=== PATIENT | male | born 1995 | race Caucasian/White ===

== ENCOUNTER 2017-01-20 11:02 | Observation (INO) | payer BC ==
[2017-01-20 11:41] LABS: #Basophils 0.1 thou/uL (0.0-0.2); #Monocytes 1.1 thou/uL (0.11-0.59); %Basophils 0.5 % (0.0-1.0); %Eosinophils 0.1 % (0.0-10.0); %Lymphocytes 15.1 % (21.0-51.0); %Monocytes 8.2 % (0.0-10.0); Hematocrit 49.5 % (42.0-52.0); Mean Platelet Volume 7.3 fL (7.4-10.4); Red Blood Cell (RBC) Count 5.53 mill/uL (4.70-6.10); White Blood Cell (WBC) Count 13.1 thou/uL (4.8-10.8)
[2017-01-20 12:14] LABS: ALT (SGPT) 12 U/L (8-55); AST (SGOT) 10 U/L (5-34); Alkaline Phosphatase 70 U/L (40-150); Anion Gap 19 mmol/L (10-20); BUN (Urea Nitrogen) 7 mg/dL (8.9-20.6); Bilirubin, Total 0.3 mg/dL (0.2-1.2); Calc. Creatinine Clearance 0 mL/min (70-130); Calcium 10.4 mg/dL (7.8-10.44); Carbon Dioxide 22 mmol/L (22-29); Chloride 103 mmol/L (98-107); Estimated GFR-MDRD 85; Globulin 3.3 g/dL (2.4-3.5); Protein, Total 7.9 g/dL (6.0-8.3)
[2017-01-20] MEDS ORDERED: Potassium Chloride 20 MEQ TAB ONE (12:33)
[2017-01-20] MEDS ORDERED: diphenhydrAMINE 50 MG/ML VIAL ONE ×2 (13:20→15:35)
[2017-01-20] MEDS ORDERED: NS 0.9% w/ 20 MEQ KCL 1,000 ML IV SCH (13:30)
[2017-01-20] MEDS ORDERED: Benztropine Mesylate 2 MG/2 ML VIAL IVP SCH ×2 (13:30→22:00)
[2017-01-20] MEDS ORDERED: Potassium Chloride 20 MEQ in Premix Bag 1 BAG IVPB SCH (13:45)
[2017-01-20 13:49] LABS: Magnesium 2.1 mg/dL (1.6-2.6)
[2017-01-20 13:58] LABS: Troponin I Less than 0.010 ng/mL (< 0.028)
[2017-01-20 14:01] LABS: Acetaminophen Less than 6.0 mcg/mL (10.0-30.0); Salicylate Less than 8.0 mg/dL (15.0-30.0)
[2017-01-20 14:32] LABS: Bilirubin Negative (Negative); Blood, Urine Negative (Negative); Glucose, Urine (Dipstick) >=1000 mg/dL (Negative); Ketone, Urine Trace mg/dL (Negative); Nitrite Negative (Negative); Protein, Urine (Dipstick) Negative (Neg-Trace); Urobilinogen 0.2 mg/dL (0.2-1.0)
[2017-01-20 14:46] LABS: Amphetamine Not Detected (NotDetected); Methadone Not Detected (NotDetected); Methamphetamine Not Detected (NotDetected)
--- NOTE | 2017-01-20 15:09 | CT ---
NONCONTRAST HEAD CT: Date: 01/20/17 HISTORY: Altered mental status. Patient has a history of drug abuse. COMPARISON: None. TECHNIQUE: Noncontrast head CT is performed from skull base to skull vertex. FINDINGS: No parenchymal hemorrhage or extra-axial hematoma. No midline shift. Basilar cisterns are patent. Br ain volume is age-appropriate. Cortical hancock-white matter differentiation is preserved. Ventricles a nd sulci are patent and symmetric. Calvarium is intact. Adequate aeration of the sinuses and mastoid air cells. IMPRESSION: No acute intracranial process. POS: [facility]
[2017-01-20] MEDS ORDERED: diphenhydrAMINE 25 MG CAP PO PRN ×2 (19:23→19:29)
[2017-01-20] MEDS ORDERED: Dextrose 50% Abboject 50 ML SYRINGE IVP PRN (19:28)
[2017-01-20] MEDS ORDERED: Dextrose 5% in Water 1,000 ML IV PRN (19:28)
[2017-01-20] MEDS ORDERED: Insulin Regular 300 UNITS/3 ML VIAL SC PRN (19:28)
[2017-01-20] MEDS ORDERED: Ondansetron HCl/PF 4 MG/2 ML Vial IVP PRN (19:30)
[2017-01-20] MEDS ORDERED: Lorazepam 2 MG/ML VIAL SLOW IVP PRN (19:30)
[2017-01-20] MEDS ORDERED: Acetaminophen 325 MG TAB PO PRN (19:31)
[2017-01-20 20:49] VITALS: BMI 22.0
[2017-01-20] MEDS: NS 0.9% w/ 20 MEQ KCL 1,000 ML IV SCH (20:58)
[2017-01-20] MEDS: Benztropine 1 MG TAB PO SCH (21:03)
[2017-01-21] MEDS: NS 0.9% w/ 20 MEQ KCL 1,000 ML IV SCH ×4 (04:25→20:40)
[2017-01-21] MEDS: Benztropine 1 MG TAB PO SCH ×3 (04:32→22:29)
--- NOTE | 2017-01-21 05:15 | HP ---
DATE OF OBSERVATION BEGINNIN01/20/2017 CHIEF COMPLAINT: Altered mental status. HISTORY OF PRESENT ILLNESS: Patient is a 21-year-old male, who recently left home and live on his o wn with some roommates were involved with polysubstance abuse. The patient had been verbalizing the desire to and because he is a type 1 diabetic thought he could do this successfully by does dri nking way too much soda water and driving his sugar up the point of . He began this process e night prior to admission, letting his mother know that this was his intention, but she did not see k help for him at that time. He later that evening when out with his roommates and apparently took some wax concentrated form of THC along with some cocaine mixed with some other drugs. He is not bedoya re and has no memory of what other substance he abused at that time. However, on the day of admissi on when it was a time to go to his job, he asked his mom to help drive him because he was unable to focus and take himself to work, she noticed his altered mental status at that time, but went ahead a nd dropped him off to work, later then called about 1-2 hours later saying that he was not able focu s and obviously mentally altered at which time she picked him up, saw his confusion, also saw him nash ving several jerking motions that he could not control. She brought him to the emergency room for f urther evaluation. In the ER, he was noted to have a positive urinary drug screen for cocaine as we ll as THC. His motions; however, are not seizure activity and is felt to be dystonic reactions prob ably from an adulterant medication to the cocaine and/or wax. The patient was watched for many hour s in the emergency room with the ER physician, thinking that this would resolve, however, after prol onged period of time and continued dystonic jerking as well as obvious hallucinations it is clear, h fredrick needs further medical observation. PAST MEDICAL HISTORY: As mentioned above is type 1 diabetic. He has an insulin pump. PAST SURGICAL HISTORY: There is no previous surgical history. PSYCHIATRIC HISTORY: Significant for depression, but never to the point of suicidal ideation. SOCIAL HISTORY: Drinks socially. Obviously abuses medication including marijuana and cocaine. Has recently quit smoking, also he is single. ALLERGIES: He has no known drug allergies. MEDICATIONS: His only prescribed medicine is insulin in his insulin pump. REVIEW OF SYSTEMS: Unobtainable due to altered mental status at this time. PHYSICAL EXAMINATION: VITAL SIGNS: On admission, blood pressure 165/100, pulse 95, respirations 14, O2 sat 98% on room ai r. GENERAL: This is a well-nourished, well-developed male, alert and confused with dystonic jerking intermittently. HEENT: Normocephalic and atraumatic. Pupils equal, round, and reactive to light. Extraocular musc les are intact. TMs, nares, pharynx are clear. NECK: Supple. Trachea midline. No mass. CHEST: Clear to auscultation. HEART: Regular rate and rhythm. ABDOMEN: Soft, nontender without organomegaly. GENITOURINARY: Deferred. EXTREMITIES: Without clubbing, cyanosis, or edema. Normal range of motion present in all extremiti es. Symmetrical muscular tone development noted in all extremities. Peripheral pulsations 2+ in al l extremities. SKIN: Without acute rashes or lesions. NEUROLOGIC: Cranial nerves are intact. Unable to test gait and cerebellar function at this time. Deep tendon reflexes 2+ bilaterally. Sensory exam was grossly intact. Mental status with audible and visual hallucinations evidenced by activity and sensory response and misrepresentation of his pe rception of reality. He is emotionally labile as well, going from inquisitive to dysphoria and tear fulness and back to euphoria. LABORATORY AND IMAGING DATA: CT scan of the brain fails to show any acute abnormalities at this pollo e. WBCs 13.1, hemoglobin 16.7, hematocrit 49.5 with platelets of 429. Sodium 141, potassium 2.8, c hloride 103, CO2 of 22, BUN 7, creatinine 1.01 with a GFR of 85. His latest glucose is at 240, calc ium 10.4, magnesium 2.1. Liver functions unremarkable. CK-MB and cardiac enzymes are negative. TS H 1.9. Urinalysis shows glucose greater than 1000 with trace ketones. Toxicology positive for coca ine and cannabis and alcohol 0. ASSESSMENT: 1. Altered mental status due to polysubstance abuse. 2. Dystonic reaction, atypical for current drug screen, probably contaminant. 3. Type 1 diabetic. 4. Hyperkalemia. 5. Major depression/possible bipolar with depression features - suicidal attempt intent prior to ge tting high. PLAN: Plan will be IV hydration treatment for the dystonic reaction, serial reevaluation, and proba ble transfer to [facility] once he is stabilized and come down from his drug-induced confusion. We will put him on telemetry and will closely reevaluate him. We will hold off on an a ntidepressants at this time, pending further psychiatric evaluation.
[2017-01-21 05:30] LABS: Hemoglobin A1c 11.7 % (4.0-6.0)
[2017-01-21 05:50] LABS: Anion Gap 11 mmol/L (10-20); BUN (Urea Nitrogen) 7 mg/dL (8.9-20.6); Calc. Creatinine Clearance 149 mL/min (70-130); Calcium 8.4 mg/dL (7.8-10.44); Carbon Dioxide 26 mmol/L (22-29); Chloride 109 mmol/L (98-107); Estimated GFR-MDRD Greater than 90
[2017-01-21 05:58] LABS: Band 1 % (5-11); Hematocrit 39.3 % (42.0-52.0); Neutrophil 33 % (42-75); Reactive Lymphocytes 16 % (0-10); Red Blood Cell (RBC) Count 4.29 mill/uL (4.70-6.10)
[2017-01-21] MEDS: Folic Acid 1 MG TAB PO SCH (08:37)
[2017-01-21] MEDS: Multivit, Therapeutic 1 TAB PO SCH (08:37)
[2017-01-21] MEDS: Thiamine HCl 200 MG/2 ML VIAL IM SCH (08:38)
--- NOTE | 2017-01-21 08:42 | PRG ---
DATE OF SERVICE: 01/21/2017 SUBJECTIVE: The patient slept most of the night, the mom is not happy secondary to she thinks his b lood sugar checks need to be more often. Also, she is upset about him not eating. She has numerous concerns today. PHYSICAL EXAMINATION: GENERAL: Upon evaluation, the patient is awake, he is alert. VITAL SIGNS: Blood pressure is 97/55, pulse 60, respiration rate 18. He is afebrile. NECK: Supple with no increased JVP or carotid bruit. Carotid had good upstroke with no thyromegaly . COR: Regular rate and rhythm. CHEST: Symmetrical. Clear to auscultation and percussion. ABDOMEN: Soft, nontender with normoactive bowel sounds. There is no bruit or organomegaly. EXTREMITIES: No edema or cyanosis. He had palpable pedal pulses. SKIN: There is no evidence of ulcers lesion, or rash. NEUROLOGIC: He is awake and alert. LABORATORY DATA: Showed a normal CBC, his blood sugar apparently was 600 according to the mother, nabeel esqueda, I do not have a 600 documented in his notes, he has been running from 138-75. His hemoglobi n A1c is 11.7. ASSESSMENT: 1. Polysubstance abuse with altered mental status. 2. Bipolar depression. 3. Hypokalemia. 4. Type 1 diabetes. PLAN: 1. I spoke with the patient and mom at length. We will obtain dietary consult. We will place the patient on 1800 calorie ADA diet. 2. We will check blood sugars q.3h. just for the time being. 3. I will give him potassium 20 mEq p.o. now. 4. We will ask hospital social worker to see the patient in consultation for psych unit, but the patient's f amily does not want [facility]. 5. We will follow up with a CMP in the morning. The patient and mom verbalized understanding and all questions answered to their satisfaction.
[2017-01-21] MEDS ORDERED: FLU VACC QS2017-18 36 mo. & older 0.5 ML SYRINGE IM ONE (09:00)
[2017-01-21] MEDS ORDERED: Potassium Chloride 20 MEQ TAB PO SCH (09:15)
[2017-01-22] MEDS: NS 0.9% w/ 20 MEQ KCL 1,000 ML IV SCH ×3 (04:15→20:19)
[2017-01-22 05:44] LABS: ALT (SGPT) 10 U/L (8-55); AST (SGOT) 13 U/L (5-34); Alkaline Phosphatase 46 U/L (40-150); Anion Gap 12 mmol/L (10-20); BUN (Urea Nitrogen) 7 mg/dL (8.9-20.6); Bilirubin, Total 0.6 mg/dL (0.2-1.2); Calc. Creatinine Clearance 160 mL/min (70-130); Calcium 8.7 mg/dL (7.8-10.44); Carbon Dioxide 23 mmol/L (22-29); Chloride 107 mmol/L (98-107); Estimated GFR-MDRD Greater than 90; Globulin 2.4 g/dL (2.4-3.5); Protein, Total 5.7 g/dL (6.0-8.3)
[2017-01-22] MEDS: Benztropine 1 MG TAB PO SCH ×2 (07:54→14:59)
[2017-01-22] MEDS: Folic Acid 1 MG TAB PO SCH (08:41)
[2017-01-22] MEDS: Multivit, Therapeutic 1 TAB PO SCH (08:42)
[2017-01-22] MEDS: Thiamine HCl 200 MG/2 ML VIAL IM SCH (08:42)
[2017-01-23] MEDS: NS 0.9% w/ 20 MEQ KCL 1,000 ML IV SCH (03:40)
[2017-01-23] MEDS: Thiamine HCl 200 MG/2 ML VIAL IM SCH (07:59)
[2017-01-23] MEDS: Folic Acid 1 MG TAB PO SCH (08:00)
[2017-01-23] MEDS: Multivit, Therapeutic 1 TAB PO SCH (08:00)
[2017-01-23 13:06] VITALS: BP 115/68; TEMP 97.2
--- NOTE | 2017-03-12 15:07 | EKG ---
Test Reason : Blood Pressure : / mmHG Vent. Rate : 101 BPM Atrial Rate : 101 BPM P-R Int : 122 ms QRS Dur : 092 ms QT Int : 280 ms P-R-T Axes : 074 031 050 degrees QTc Int : 363 ms Sinus tachycardia Nonspecific T wave abnormality Nonspecific ST abnormality Abnormal ECG Confirmed by LATOYA LANG, ADOLFO Hernandez ([id number]), scientific editor LUCI BOO ([id number] on 03/12/2017 3:07:13 PM Referred By: Confirmed By:ADOLFO KLEIN MD
== END 2017-01-23 14:37 ==
LOC: ERS 11:02 → 2NO 16:39 → SURG A 01-22 17:30
PROVIDERS: ADMIT Specialist; ATTEND Specialist
DX: T50.992A Poisoning by other drugs, medicaments and biological substances, intentional self-harm, initial encounter (principal); F19.10 Other psychoactive substance abuse, uncomplicated; R41.82 Altered mental status, unspecified; F31.9 Bipolar disorder, unspecified; E10.9 Type 1 diabetes mellitus without complications; R25.8 Other abnormal involuntary movements; E87.5 Hyperkalemia; Z79.899 Other long term (current) drug therapy; Z87.891 Personal history of nicotine dependence
CPT/HCPCS: 36415; 36416; 70450; 80048; 80053; 80306; 80307; 81003; 82140; 82553; 83036; 83735; 84443; 84484; 85025; 90471; 90682; 90732; 93005; 96361; 96365; 96366; 96372; 96375; 96376; G0008; G0009; G0378; J0515; J1200; J3411; J3480; J7050; Q2036

== ENCOUNTER 2017-01-30 18:40 | Emergency (ER) | payer BC ==
[2017-01-30 19:21] LABS: #Basophils 0.1 thou/uL (0.0-0.2); #Lymphocytes 1.2 thou/uL (1.20-3.40); #Monocytes 0.6 thou/uL (0.11-0.59); #Neutrophils 6.2 thou/uL (1.40-6.50); %Basophils 0.9 % (0.0-1.0); %Eosinophils 0.2 % (0.0-10.0); %Lymphocytes 15.1 % (21.0-51.0); %Monocytes 7.2 % (0.0-10.0); Hematocrit 46.2 % (42.0-52.0); Red Blood Cell (RBC) Count 5.11 mill/uL (4.70-6.10); White Blood Cell (WBC) Count 8.1 thou/uL (4.8-10.8)
[2017-01-30 19:29] LABS: PTT 25.3 SEC (22.9-36.1); Prothrombin Time 13.7 SEC (12.0-14.7)
[2017-01-30 19:41] LABS: ALT (SGPT) 17 U/L (8-55); AST (SGOT) 15 U/L (5-34); Acetaminophen Less than 6.0 mcg/mL (10.0-30.0); Alkaline Phosphatase 53 U/L (40-150); Anion Gap 16 mmol/L (10-20); BUN (Urea Nitrogen) 9 mg/dL (8.9-20.6); Bilirubin, Total 0.7 mg/dL (0.2-1.2); Calc. Creatinine Clearance 0 mL/min (70-130); Calcium 9.8 mg/dL (7.8-10.44); Carbon Dioxide 22 mmol/L (22-29); Chloride 103 mmol/L (98-107); Estimated GFR-MDRD 85; Globulin 2.9 g/dL (2.4-3.5); Protein, Total 7.3 g/dL (6.0-8.3); Salicylate Less than 8.0 mg/dL (15.0-30.0); Troponin I Less than 0.010 ng/mL (< 0.028)
[2017-01-30 20:42] LABS: Bilirubin Negative (Negative); Blood, Urine Negative (Negative); Glucose, Urine (Dipstick) 500 mg/dL (Negative); Ketone, Urine 15 mg/dL (Negative); Nitrite Negative (Negative); Protein, Urine (Dipstick) Negative (Neg-Trace); Urobilinogen 0.2 mg/dL (0.2-1.0)
[2017-01-30 20:59] LABS: Amphetamine Not Detected (NotDetected); Methadone Not Detected (NotDetected); Methamphetamine Not Detected (NotDetected)
[2017-01-30] MEDS ORDERED: Acetaminophen 650 MG Suppository ONE (21:35)
[2017-01-30] MEDS ORDERED: Acetaminophen 500 MG TAB ONE (21:45)
--- NOTE | 2017-01-30 22:00 | RAD ---
CHEST ONE VIEW 01/30/17 HISTORY: Fever. COMPARISON: None. FINDINGS: Lungs are clear. No pneumothorax or effusion. The cardiac silhouette or effusion. The cardiac silhoue tte and mediastinal contours are normal. 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 IMPRESSION: No acute intrathoracic abnormality. POS: [facility]
== END 2017-01-30 23:52 | disposition home or self-care (01) ==
LOC: ERS 18:40
DX: R41.82 Altered mental status, unspecified (principal); T44.3X5A Adverse effect of other parasympatholytics [anticholinergics and antimuscarinics] and spasmolytics, initial encounter; E10.9 Type 1 diabetes mellitus without complications
CPT/HCPCS: 36416; 71010; 80053; 80306; 80307; 81003; 82553; 84443; 84484; 85025; 85610; 85730; 87081; 87430; 93005; 96360; 96361

== ENCOUNTER 2017-02-03 12:01 | Emergency (ER) | payer BC ==
[2017-02-03] MEDS ORDERED: Lorazepam 2 MG/ML VIAL ONE ×2 (12:12→12:45)
[2017-02-03] MEDS ORDERED: Haloperidol Lactate 5 MG/ML VIAL ONE (12:12)
[2017-02-03 12:49] LABS: #Basophils 0.1 thou/uL (0.0-0.2); #Monocytes 0.4 thou/uL (0.11-0.59); #Neutrophils 3.3 thou/uL (1.40-6.50); %Basophils 1.1 % (0.0-1.0); %Eosinophils 0.6 % (0.0-10.0); %Lymphocytes 33.9 % (21.0-51.0); %Monocytes 7.7 % (0.0-10.0); Hematocrit 46.5 % (42.0-52.0); Mean Platelet Volume 7.1 fL (7.4-10.4); Red Blood Cell (RBC) Count 5.21 mill/uL (4.70-6.10); White Blood Cell (WBC) Count 5.8 thou/uL (4.8-10.8)
[2017-02-03 13:10] LABS: ALT (SGPT) 13 U/L (8-55); AST (SGOT) 10 U/L (5-34); Acetaminophen Less than 6.0 mcg/mL (10.0-30.0); Alkaline Phosphatase 52 U/L (40-150); Anion Gap 20 mmol/L (10-20); BUN (Urea Nitrogen) 10 mg/dL (8.9-20.6); CK (CPK) 69 U/L (30-200); Calc. Creatinine Clearance 0 mL/min (70-130); Calcium 9.7 mg/dL (7.8-10.44); Carbon Dioxide 19 mmol/L (22-29); Chloride 103 mmol/L (98-107); Estimated GFR-MDRD Greater than 90; Globulin 2.7 g/dL (2.4-3.5); Salicylate Less than 8.0 mg/dL (15.0-30.0)
[2017-02-03 13:25] LABS: Amphetamine Not Detected (NotDetected); Methadone Not Detected (NotDetected); Methamphetamine Not Detected (NotDetected)
== END 2017-02-03 20:31 | disposition home or self-care (01) ==
LOC: ERS 12:01
DX: R41.82 Altered mental status, unspecified (principal); E10.9 Type 1 diabetes mellitus without complications
CPT/HCPCS: 36415; 36416; 80053; 80306; 80307; 82550; 84443; 85025; 93005; 96360; 96361; 96372; J1630; J2060

== ENCOUNTER 2017-02-08 17:04 | Emergency (ER) | payer BC ==
[2017-02-08 18:42] LABS: #Basophils 0.1 thou/uL (0.0-0.2); #Eosinphils 0.1 thou/uL (0.0-0.7); #Lymphocytes 1.9 thou/uL (1.20-3.40); #Monocytes 0.9 thou/uL (0.11-0.59); #Neutrophils 4.3 thou/uL (1.40-6.50); %Basophils 0.9 % (0.0-1.0); %Lymphocytes 26.5 % (21.0-51.0); %Monocytes 11.9 % (0.0-10.0); Hematocrit 51.9 % (42.0-52.0); Mean Platelet Volume 6.9 fL (7.4-10.4); Red Blood Cell (RBC) Count 5.74 mill/uL (4.70-6.10); White Blood Cell (WBC) Count 7.2 thou/uL (4.8-10.8)
--- NOTE | 2017-02-08 19:00 | ULT ---
TESTICULAR ULTRASOUND: Date: 02/08/17 HISTORY: Trauma. Pain. COMPARISON: None. FINDINGS: Testicular echotexture and vascularity is normal bilaterally. Right testicle measures 2.7 x 4.3 x 1.8 cm. Left testicle measures 3.2 x 4.5 x 1.8 cm. Both epididymides are normal with a small left epidid ymal cyst. The skin of the scrotum appears to be mildly thickened. IMPRESSION: Mildly thickened scrotal skin. No abnormality of the underlying testicles. POS: [facility]
--- NOTE | 2017-02-08 19:02 | RAD ---
ABDOMEN 2 VIEWS WITH 1 VIEW CHEST: Date: 02/08/17 HISTORY: Intermittent abdominal and chest pain. COMPARISON: Chest 1 view dated 01/30/17. FINDINGS: The lungs are clear. No pneumothorax or effusion. 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 No dilated loops of large or small bowel. On the upright view, there is no free air under the hemidia phragms. IMPRESSION: No acute intrathoracic or intra-abdominal abnormality. POS: [facility]
[2017-02-08 19:03] LABS: Anion Gap 12 mmol/L (10-20); BUN (Urea Nitrogen) 9 mg/dL (8.9-20.6); Calc. Creatinine Clearance 0 mL/min (70-130); Calcium 9.9 mg/dL (7.8-10.44); Carbon Dioxide 27 mmol/L (22-29); Chloride 102 mmol/L (98-107); Estimated GFR-MDRD Greater than 90
[2017-02-08 19:17] LABS: Bilirubin Small (Negative); Blood, Urine Negative (Negative); Glucose, Urine (Dipstick) >=1000 mg/dL (Negative); Ketone, Urine Trace mg/dL (Negative); Nitrite Negative (Negative); Protein, Urine (Dipstick) Trace mg/dL (Neg-Trace)
[2017-02-08 19:27] LABS: Amphetamine Not Detected (NotDetected); Methadone Not Detected (NotDetected); Methamphetamine Not Detected (NotDetected)
== END 2017-02-08 19:53 | disposition home or self-care (01) ==
LOC: ERS 17:04
DX: N50.819 Testicular pain, unspecified (principal)
CPT/HCPCS: 36415; 36416; 74022; 76870; 80048; 80306; 81003; 85025; 93976

== ENCOUNTER 2017-12-08 05:49 | Inpatient (IN) | payer BC ==
[2017-12-08 06:16] LABS: Bicarbonate (HCO3v) 8.9 mmol/L (1.0-85.0); CO2 Tension (PvCO2) 23.3 mmHg (41.0-51.0); Calcium, Ionized 1.16 mmol/L (1.12-1.32); Hemoglobin - Calc 19.7 g/dL (12.0-18.0); O2 Tension (PvO2) 59.1 mmHg (35.0-45.0); Potassium 4.1 mmol/L (3.4-4.7); T. Carbon Dioxide 9.6 mmol/L (1.0-85.0); pH (Venous) 7.188 (7.35-7.45); vO2 Saturation-calc 84.3 % (94-98)
[2017-12-08 06:27] LABS: #Basophils 0.1 thou/uL (0.0-0.2); #Eosinphils 0.1 thou/uL (0.0-0.7); #Lymphocytes 2.8 thou/uL (1.20-3.40); #Monocytes 0.8 thou/uL (0.11-0.59); #Neutrophils 5.3 thou/uL (1.40-6.50); %Basophils 1.1 % (0.0-1.0); %Eosinophils 1.1 % (0.0-10.0); %Lymphocytes 30.7 % (21.0-51.0); %Monocytes 8.7 % (0.0-10.0); %Neutrophils 58.6 % (42.0-75.0); Hemoglobin 17.4 g/dL (14.0-18.0); Mean Corpuscular Hemoglobin 28.5 pg (27.0-31.0); Platelet Count 479 thou/uL (130-400); Red Blood Cell (RBC) Count 6.11 mill/uL (4.70-6.10); White Blood Cell (WBC) Count 9.1 thou/uL (4.8-10.8)
[2017-12-08] MEDS ORDERED: Lorazepam 2 MG/ML VIAL ONE (06:27)
[2017-12-08] MEDS ORDERED: Insulin Regular 300 UNITS/3 ML VIAL ONE (06:33)
[2017-12-08 06:40] LABS: ALT (SGPT) 13 U/L (8-55); AST (SGOT) 11 U/L (5-34); Acetaminophen Less than 6.0 mcg/mL (10.0-30.0); Albumin 5.1 g/dL (3.5-5.0); Alcohol Less than 10 mg/dL (Less than 10); Alkaline Phosphatase 111 U/L (40-150); Anion Gap 29 mmol/L (10-20); BUN (Urea Nitrogen) 19 mg/dL (8.9-20.6); Bilirubin, Total 1.1 mg/dL (0.2-1.2); CK (CPK) 52 U/L (30-200); Calc. Creatinine Clearance 0 mL/min (70-130); Calcium 10.1 mg/dL (7.8-10.44); Chloride 99 mmol/L (98-107); Estimated GFR-MDRD 52; Globulin 3.7 g/dL (2.4-3.5); Glucose 443 mg/dL (70-105); Lipase 14 U/L (8-78); Magnesium 2.3 mg/dL (1.6-2.6); Phosphorus 4.1 mg/dL (2.3-4.7); Potassium 4.2 mmol/L (3.5-5.1); Protein, Total 8.8 g/dL (6.0-8.3); Salicylate Less than 8.0 mg/dL (15.0-30.0); Sodium 132 mmol/L (136-145)
[2017-12-08 06:43] LABS: Carbon Dioxide 8 mmol/L (22-29)
[2017-12-08 06:48] LABS: Troponin I Less than 0.010 ng/mL (< 0.028)
--- NOTE | 2017-12-08 08:01 | RAD ---
SINGLE VIEW CHEST: Date: 12/08/17 COMPARISON: 01/30/17. HISTORY: Altered mental status. FINDINGS: Single view of the chest shows a normal sized cardiomediastinal silhouette. There is no evidence of c onsolidation, mass, or pleural effusion. The bones are unremarkable. IMPRESSION: No evidence of acute cardiopulmonary disease. POS: [facility]
[2017-12-08 08:34] LABS: Bilirubin Negative (Negative); Blood, Urine Negative (Negative); Clarity CLEAR (Clear); Glucose, Urine (Dipstick) >=1000 mg/dL (Negative); Leukocyte Negative (Negative); Nitrite Negative (Negative); Protein, Urine (Dipstick) 30 mg/dL (Neg-Trace); Specific Gravity, Urine 1.035 (1.002-1.036); Urobilinogen 0.2 mg/dL (0.2-1.0); pH, Urine 5.5 (5.0-9.0)
[2017-12-08 08:40] LABS: Bacteria/HPF None Seen HPF (None Seen); Hyaline Casts/LPF 0-3 HYALINE CAST LPF (0-3 Hyaline); Pathc Cast-AUWi Flag 0.14 (0-2.49); RBC/HPF None Seen HPF (0-3); Squamous Epithelial None Seen HPF (0-3); WBC/HPF None Seen HPF (0-3)
[2017-12-08] MEDS ORDERED: D5 1/2 NS w/20 mEq KCL 1,000 ML IV SCH (08:45)
[2017-12-08 08:47] LABS: Amphetamine Not Detected (NotDetected); Barbiturates Screen Not Detected (NotDetected); Benzodiazepine Screen Not Detected (NotDetected); Cocaine Metabolite Screen Not Detected (NotDetected); Medtox Control Line Valid? VALID (VALID); Medtox Reader # READER 1; Methadone Not Detected (NotDetected); Methamphetamine Not Detected (NotDetected); Opiate Screen Not Detected (NotDetected); Oxycodone Screen Not Detected (NotDetected); Phencyclidine (PCP) Not Detected (NotDetected); THC/Cannabinoid Screen Detected (NotDetected); Tricyclic Screen Not Detected (NotDetected)
--- NOTE | 2017-12-08 10:27 | PDOC.PULCN ---
<Jorge Victor - Last Filed: 12/08/17 17:14> Pulmonology Consult: HPI - Date of Consult Date: 12/08/17 Time: 10:25 - Consult Details Reason for Consult: DKA Requesting Physician: Emergency Department - History of Present Illness HPI: ARIN SUAREZ is a 22 year-old Male that presents to the ED for AMS per his family. Patient has a past history of DM type 1 and substance abuse. Patient's father states that he has seen this "train wreck" coming for the last month. The patient hasn't been sticking to his diet. The patient also hasn't been taking his insulin over the last 2-3 days. He states that his diet was strictly water over this time. The patient states that he had some nausea and vomiting this morning prior to arrival to ED. Patient's father states that his mentation has been off and is acting inappropriately. Patient's father states that he has not slept in 3-4 days. Patient's father is concerned over his condition and wants him to take better care of himself. The patient denies chest pain, sob, new rashes, or infection. No other complaints today. Pulmonology Consult: ROS - Review of Systems Constitutional: negative: fever, chills Cardiovascular: negative: chest pain, palpitations Respiratory: negative: no reported symptoms Pulmonology Consult: PMH Past Medical History: PMH: Type 1 DM, Depression, Substance Abuse PSH: None - Family History Family history: reviewed and not pertinent - Social History Smoking Status: Never smoker Alcohol Use: occasional Drug Use History: marijuana Living Situation: with family/parents Pulmonology Consult: Meds - Medications Medications: Current Medications Insulin Human Regular 100 (units/ Sodium Chloride) 101 mls @ 0 mls/hr IVPB INF DEREJE; Protocol Stop: 12/08/17 18:45 Potassium Chloride/Dextrose/Sod Cl (D5 1/2 Ns W/20 Meq Kcl) 1,000 mls @ 250 mls /hr IV .Q4H DEREJE Sodium Chloride (Flush - Normal Saline) 10 ml IVF Q12HR DEREJE Sodium Chloride (Flush - Normal Saline) 10 ml IVF PRN PRN PRN Reason: Saline Flush - Allergies Allergies/Adverse Reactions: Allergies Allergy/AdvReac Type Severity Reaction Status Date / Time No Known Allergies Allergy Unverified 01/20/17 13:22 Pulmonology Consult: PE - Physical Exam Constitutional: NAD Deviation from normal: Dry mucous membranes Neck: no nodes Cardiovascular: RRR, no significant murmur Respiratory: clear to auscultation bilaterally Gastrointestinal: soft, non-tender, no distention, positive bowel sounds Musculoskeletal: no edema, pulses present Neurological: moves all 4 limbs Psychiatric: A&O x 3 Deviation from normal: Denies hallucinations Skin: no rash Pulmonology Consult: Results - Labs Result Diagrams: 12/08/17 06:03 12/08/17 12:46 - ABG Interpretation ABG Results: POC Bicarbonate Calc 8.9 mmol/L (1.0-85.0) 12/08/17 06:11 Pulmonology Consult: A/P - Problem (1) DKA (diabetic ketoacidoses) Current Visit: Yes Code(s): E13.10 - OTH DIABETES MELLITUS WITH KETOACIDOSIS WITHOUT COMA Status: Acute (2) Diabetes mellitus type 1 Current Visit: Yes Status: Chronic (3) Substance abuse Current Visit: Yes Code(s): F19.10 - OTHER PSYCHOACTIVE SUBSTANCE ABUSE, UNCOMPLICATED Status: Chronic - Time Time: 50% of the time was spent in coordination of care (as documented) at patient's floor/unit and/or counseling patient. Time with Patient: greater than 50 minutes - Plan Plan: 1. DKA - Continue with insulin therapy per protocol. Will defer management to primary team. - ED completed VBG, Can consider ABG - Q6H BMP 2. Type 1 DM - Accuchecks - Initiate home regimen when appropriate 3. Substance abuse - Recent psych hospitalization - Currently abuses marijuana - UDS positive for marijuana - Recommend cessation - Monitor for other signs of withdrawal Disposition: Stable, Continue current plan of care and await resolution of DKA. <John Leon M - Last Filed: 12/09/17 13:40> Pulmonology Consult: HPI - History of Present Illness HPI: ARIN SUAREZ is a 22 year-old M Pulmonology Consult: Meds - Medications Medications: Current Medications Acetaminophen (Tylenol) 650 mg PO Q4H PRN PRN Reason: Headache/Fever or Pain Al Hydroxide/Mg Hydroxide (Maalox) 30 ml PO Q6H PRN PRN Reason: Heartburn or Indigestion Calcium Carbonate (Tums) 1,000 mg PO Q4H PRN PRN Reason: Heartburn or Indigestion Dextrose/Water (Dextrose 50%) 25 gm SLOW IVP PRN PRN PRN Reason: Hypoglycemia Enoxaparin Sodium (Lovenox) 40 mg SC 0900 [facility] Last Admin: 12/09/17 08:32 Dose: 40 mg Glucagon (Glucagon) 1 mg IM PRN PRN PRN Reason: Hypoglycemia Guaifenesin (Robitussin Sf) 200 mg PO Q4H PRN PRN Reason: Cough Dextrose/Water (D5w) 1,000 mls @ 0 mls/hr IV .Q0M PRN PRN Reason: Hypoglycemia Magnesium Sulfate 4 gm/ Sodium (Chloride) 258 mls @ 86 mls/hr IVPB NOW [facility] Stop: 12/09/17 16:00 Last Admin: 12/09/17 10:59 Dose: Not Given Potassium Phosphate 30 mmol/ (Sodium Chloride) 510 mls @ 83.3 mls/hr IVPB NOW [facility] Stop: 12/09/17 16:00 Last Admin: 12/09/17 10:59 Dose: Not Given Insulin Glargine 15 units/ (Miscellaneous Medication) 0.15 mls @ 0 mls/hr SC [facility] Insulin Human Lispro (Humalog) 0 units SC .MILD SLIDING SCALE PRN PRN Reason: Mild Correctional Scale Insulin Human Lispro (Humalog) 5 units SC [facility] Last Admin: 12/09/17 12:49 Dose: Not Given Labetalol HCl (Normodyne) 10 mg SLOW IVP Q4H PRN PRN Reason: Systolic BP > 180 Loperamide HCl (Imodium) 2 mg PO PRN PRN PRN Reason: Diarrhea/Loose Stools Loratadine (Claritin) 10 mg PO DAILYPRN PRN PRN Reason: Sinus Symptoms Ccu Electrolyte (Replacement Protocol) 0 each FS PRN PRN PRN Reason: FOR ELECTROLYTE REPLACEMENT Ondansetron HCl (Zofran Odt) 4 mg PO Q6H PRN PRN Reason: Nausea/Vomiting Ondansetron HCl (Zofran) 4 mg IVP Q6H PRN PRN Reason: Nausea/Vomiting Last Admin: 12/08/17 20:52 Dose: 4 mg Phenol (Chloraseptic [place] 180 Ml Bot) 0 ml PO PRN PRN PRN Reason: Sore Throat Quetiapine Fumarate (Seroquel) 25 mg PO BID DEREJE Last Admin: 12/09/17 10:47 Dose: Not Given Senna (Senokot) 2 tab PO HSPRN PRN PRN Reason: Constipation Sodium Chloride ([place] Nasal [place] 0.65%) 0 ml EA NARE QIDPRN PRN PRN Reason: Nasal Congestion Sodium Chloride (Flush - Normal Saline) 10 ml IVF Q12HR DEREJE Last Admin: 12/09/17 08:33 Dose: 10 ml Sodium Chloride (Flush - Normal Saline) 10 ml IVF PRN PRN PRN Reason: Saline Flush Zolpidem Tartrate (Ambien) 5 mg PO HSPRN PRN PRN Reason: Insomnia Last Admin: 12/08/17 20:44 Dose: 5 mg Pulmonology Consult: Results - Labs Result Diagrams: 12/09/17 05:50 12/09/17 05:50 - ABG Interpretation ABG Results: POC Bicarbonate Calc 8.9 mmol/L (1.0-85.0) 12/08/17 06:11 Pulmonology Consult: A/P - Time Time: 50% of the time was spent in coordination of care (as documented) at patient's floor/unit and/or counseling patient. Attending Addendum - Attending Addendum Date/Time: 12/09/17 [id number] I personally evaluated the patient and discussed the management with Dr. Victor. I agree with the History, Examination, Assessment and Plan documented above with any addition or exceptions noted below. 70 minutes have been devoted to this patient in various activities. I personally reviewed all imaging studies and laboratory data noted within this document. For fifty percent of this time, I was interacting with the patient at the bedside or coordinating care with the care team. For the remainder of the time I was immediately available to the patient in the hospital unit.
[2017-12-08 11:33] LABS: Anion Gap 19 mmol/L (10-20); BUN (Urea Nitrogen) 15 mg/dL (8.9-20.6); Calc. Creatinine Clearance 0 mL/min (70-130); Calcium 8.9 mg/dL (7.8-10.44); Carbon Dioxide 12 mmol/L (22-29); Chloride 107 mmol/L (98-107); Estimated GFR-MDRD 85; Glucose 112 mg/dL (70-105); Potassium 4.2 mmol/L (3.5-5.1); Sodium 134 mmol/L (136-145)
--- NOTE | 2017-12-08 11:55 | HP ---
DATE OF ADMISSION: 12/08/2017 PRIMARY CARE PHYSICIAN: Alejandro Guy M.D. REASON FOR ADMISSION: Acute metabolic encephalopathy, diabetic ketoacidosis, intractable nausea and vomiting, dehydration. HISTORY OF PRESENT ILLNESS: A 22-year-old male who has underlying history of diabetes type 1 who presented to emergency room for altered mental status. The patient has a history of diabetes type 1 and he is on insulin. The patient's father is present at bedside who provided most of the history. The patient lives with his father in an apartment. Around 5:00, the patient woke up his father that he vomited in his room. At that time, the patient was talking irrelevantly. The patient's father suspected that he is going to go for DKA and he was pretty much hallucinating and talking off the mind that was not making any sense. He was also having nausea and vomiting and that is why he was brought to emergency room for evaluation. In the emergency room, the patient had a chest x-ray, which was normal. Routine blood tests showed that the patient is having DKA. The patient was given IV fluid and insulin drip was started. After that, his blood sugar significantly improved and after that, dextrose with insulin drip was also initiated. Initially, lactic acid was high and subsequent repeat lactic acid was normal. The patient was tachycardic. He was actively throwing up in the emergency room. Other vitals were stable. With IV fluid hydration, the patient 's condition improving. Initially, he required restraint in the ER, but subsequently he was more coherent. Initially, plan was admitted to CCU, but subsequently upon stabilization, we changed to IMCU admission. I have spoken with the patient's father at bedside and history obtained from the patient. The patient does have cannabis abuse, but he denies any cocaine abuse, which he had before positive in 2017. The patient's father reports that he is pretty much in sound mind whenever he is normal. He is making progress in his job. He is associated customer service related work and he is making progress and he is getting promotion. The patient's father does not believe that he has underlying psychiatric problem. The patient's father reports that whenever he is normal and he is doing very well, he does not have any vomiting, but he reports that his blood sugar relatively remains uncontrolled for almost a month. He denies any early satiety. He does not have any diarrhea, fever, UTI symptoms. The patient saw intermediate school teacher yesterday. At this point, the patient is admitted for DKA management. PAST MEDICAL HISTORY: Diabetes type 1. PAST SURGICAL HISTORY: The patient had a wrist surgery when he had broken bone when he was a child. PAST PSYCHIATRIC HISTORY: As per report, the patient has underlying depression , but family member and the patient denies any previous psychiatric history. SOCIAL HISTORY: The patient does have cannabis abuse periodically. He also had one time positive cocaine in his urine drug screen. He quit smoking. He drinks alcohol occasionally. He lives with his father. FAMILY HISTORY: Sister has type 1 diabetes, mother has type 2 diabetes, father is healthy. ALLERGIES: No known drug allergy. MEDICATIONS: The patient is on insulin pump through the intermediate school teacher. REVIEW OF SYSTEMS: The following complete review of systems was negative, unless otherwise mentioned in the HPI or below: Constitutional: Weight loss or gain, ability to conduct usual activities. Skin: Rash, itching. Eyes: Double vision, pain. ENT/Mouth: Nose bleeding, neck stiffness, pain, tenderness. Cardiovascular: Palpitations, dyspnea on exertion, orthopnea. Respiratory: Shortness of breath, wheezing, cough, hemoptysis, fever or night sweats. Gastrointestinal: Poor appetite, abdominal pain, heartburn, nausea, vomiting, constipation, or diarrhea. Genitourinary: Urgency, frequency, dysuria, nocturia. Musculoskeletal: Pain, swelling. Neurologic/Psychiatric: Anxiety, depression. Allergy/Immunologic: Skin rash, bleeding tendency. Please see my HPI for pertinent positive and negative. All other review of systems reviewed and negative except as mentioned in the HPI. EMERGENCY ROOM COURSE: The patient was given IV fluid with potassium. Subsequently, dextrose with half normal saline was started. Lorazepam 1 mg was given. PHYSICAL EXAMINATION: VITAL SIGNS: On arrival, blood pressure 171/102, pulse 122, respiratory rate 18 , saturation 98% on room air, weight 89.9 kg, temperature 98.1. GENERAL: The patient is currently alert, awake, vomiting, tachycardic, hypertensive. No obvious acute distress. HEAD: Normocephalic, atraumatic. EYES: Pupils round and reactive to light. Extraocular muscle intact. ENT: Oropharynx within normal limits. Dry mucous membrane. No oral lesion, no pharyngeal erythema, no exudate. NECK: Supple. No JVD, no meningeal signs of irritation. LUNGS: Clear to auscultation without any rhonchi or rales. CARDIAC: S1, S2 regular, tachycardia, no murmur, no gallop, no rub. ABDOMEN: Soft, bowel sounds present, nontender, nondistended. No organomegaly , no mass, no suprapubic tenderness. BACK: No CVA tenderness. No point tenderness. EXTREMITIES: Upper extremities, passive movement of all joints are normal. Lower extremities, no edema. Good distal pulsation. SKIN: No skin rash. HEMATOLOGICAL: No lymphadenopathy. PSYCHIATRIC: At this point, flat affect. NEUROLOGIC: The patient is currently alert, awake, still a little bit disoriented, but he answers question. He moves all 4 limbs. His speech is normal. No focal neurological deficit noted. IMAGIN. EKG showing sinus tachycardia. 2. Chest x-ray based on my review, no acute cardiopulmonary process. LABORATORY DATA: CBC, WBC 9.1, hemoglobin 17.4, platelet 479,000. VBG, pH 7.18 , CO2 23.3, O2 59.1, bicarbonate 8.9. BMP, sodium 132, potassium 4.2, chloride 99, carbon dioxide 8, BUN 19, creatinine 1.66, glucose 443, calcium 10.1, lactic acid 4.0, phosphorus 4.1, magnesium 2.3. LFT, AST 11, ALT 13, alkaline phosphatase 111, albumin 5.1, lipase 14. CK 52, CK-MB 1.0. Troponin I less than 0.010. Urinalysis, proteinuria, glucosuria, ketonuria. Urine drug screen positive for cannabinoids. Serum drug screen negative. Serum ketones 8.01. ASSESSMENT: 1. Acute metabolic encephalopathy, likely due to abnormal biochemistry with diabetic ketoacidosis. 2. Diabetic ketoacidosis, type 1. 3. Acute kidney failure due to dehydration. 4. Lactic acidosis due to dehydration. 5. Hyponatremia due to pseudohyponatremia. 6. Cannabis abuse. 7. Glucosuria, proteinuria due to hyperglycemia and ketosis. 8. Severe dehydration due to nausea and vomiting. 9. Intractable nausea and vomiting, likely due to diabetic ketoacidosis. 10. Sinus tachycardia, likely due to dehydration. 11. Hyperglycemia associated with type 1 diabetes. PLAN: Full admission to Intermediate Care Unit. DKA protocol order initiated. Monitor Accu-Chek every hourly and titrate insulin drip. Replace electrolytes as needed. Check hemoglobin A1c and repeat labs including electrolytes tomorrow. Treat underlying insomnia with sedative medication. Counseling provided to avoid cannabis abuse. Deep venous thrombosis prophylaxis with Lovenox 40 mg subcutaneously daily. Gastrointestinal prophylaxis with Pepcid 20 mg IV b.i.d. Code status: The patient is full code. Disposition plan based on clinical course. We are expecting the patient's stay in hospital more than 2 midnights. Plan of care discussed with the patient and his father at bedside. BERNARD
--- NOTE | 2017-12-08 12:33 | HP ---
CHIEF COMPLAINT ON ADMISSION: Diabetic ketoacidosis. HISTORY OF PRESENT ILLNESS: The patient is a 22-year-old male who the father states he has been slowly going into DKA over the past month. He has watched him wax and wane with his blood sug ars, alertness and ability to respond correctly until finally on the day of admission he was complete ly disoriented, confused and while he had not been hallucinating, this was the only unusual part of h is behavior that he did not portray. The dad brought him to the emergency room for reevaluation wher e he had been throwing up consistently and needed fluid rehydration. He denies fever or diarrhea. Calista alcala has done this before. PAST MEDICAL HISTORY: Significant for insulin-dependent diabetes. He has bipolar disorder. He does consume alcohol. PAST SURGICAL HISTORY: He has no surgeries. SOCIAL HISTORY: As mentioned above, he drinks socially. Denies smoking, but uses marijuana regularl y. He is currently living with his family, recently discharged from [facility] for bipolar disorder. ALLERGIES: He has no known drug allergies. MEDICATIONS: He is unable to recall his insulin dose at this time. He is managed by Dr. Tucker. REVIEW OF SYSTEMS: CONSTITUTIONAL: He denies fever and chills, but he has had weakness, nausea, vomiting, and confusion . HEENT: Denies eyes, ears or nose, drainage or sores. CHEST: Denies cough or shortness of breath. CARDIOVASCULAR: Denies palpitations. His heart rate has been elevated at times. ABDOMEN: Nontender. Positive for nausea and vomiting, negative for diarrhea. GENITOURINARY: Denies painful urination. Denies blood in urine or stool. EXTREMITIES: Denies painful range of motion of any of his limbs. SKIN: No new rashes or lesions. NEUROLOGIC: Mental status is significant for confusion. PHYSICAL EXAMINATION: VITAL SIGNS: On admission, blood pressure 171/107, pulse 122, respirations 18, pain scale, unable to determine, O2 sat 98% on room air. GENERAL: This is a well-developed, well-nourished young adult male, alert, responsive, confused. HEENT: Normocephalic and atraumatic. Pupils equal, round, and reactive to light. Extraocular muscl es are intact. TMs, nares are clear. Pharynx is moist. NECK: Supple, trachea midline. CHEST: Clear to auscultation. HEART: Regular rate and rhythm, tachycardic. BACK: No lesions or tenderness. ABDOMEN: Soft, nontender. No hepatosplenomegaly, no hernia. GENITOURINARY: Normal male. RECTAL: Deferred. EXTREMITIES: Without clubbing, cyanosis, or edema. Normal range of motion present. SKIN: With adequate turgor. No rashes or lesions. NEUROLOGIC: Cranial nerves are intact. Sensory exam is grossly normal. Gait and cerebellar functio n untested at this time. Babinskis down. Mental status significant for mild confusion, but he is al ert and responsive. LABORATORY: The lab work thus far shows WBC 9.1, hemoglobin 17.4, hematocrit 54.4 with platelets at 479. This is a venous blood gas; pH is 7.18, pCO2 23, pO2 of 59. Sodium 133, potassium 4.1, chlorid e 107, CO2 12, BUN at 15, creatinine at 0.08 with a GFR of 85. Blood sugars have been at 121, 112, 1 27, lactic acid 1.0. Liver functions unremarkable. Urinalysis shows greater than 1000 glucose with 80 ketones. Toxicology shows highly detected cannabis and beta hydroxybutyrate. ASSESSMENT: 1. Diabetic ketoacidosis. 2. General medical noncompliance. 3. THC abuse. PLAN: The plan will be diabetic ketoacidosis protocol in the ICU, electrolyte replacement protocol, hydration, promethazine for nausea and serial reevaluation. Sound will be covering from noon on.
[2017-12-08] MEDS ORDERED: Chloraseptic Spray 180 ml Bottle PO PRN (12:39)
[2017-12-08] MEDS ORDERED: CCU Electrolyte Replacement 1 EACH IVPB ONE (12:39)
[2017-12-08] MEDS ORDERED: Mag-Al 1200 mg/1200 mg/30 ML UDCUP PO PRN (12:39)
[2017-12-08] MEDS ORDERED: Calcium Carbonate 500 MG ChewTAB PO PRN (12:39)
[2017-12-08] MEDS ORDERED: Labetalol HCl 100 MG/20 ML VIAL SLOW IVP PRN (12:39)
[2017-12-08] MEDS ORDERED: Dextrose 5 %-0.45 % NaCl 1,000 ML IV PRN (12:39)
[2017-12-08] MEDS ORDERED: Eucerin (Mineral Oil/Petrolatum,White) 30 gm Jar TOP PRN (12:39)
[2017-12-08] MEDS ORDERED: Acetaminophen 325 MG TAB PO PRN (12:39)
[2017-12-08] MEDS ORDERED: Senokot 8.6 MG TAB PO PRN (12:39)
[2017-12-08] MEDS ORDERED: Zolpidem Tartrate 5 MG TAB PO PRN (12:39)
[2017-12-08] MEDS ORDERED: Milk Of Magnesia 30 ML UDCUP PO PRN (12:39)
[2017-12-08] MEDS ORDERED: Ondansetron ODT 4 MG TAB PO PRN (12:39)
[2017-12-08] MEDS ORDERED: Artificial Tears 18 DROP/0.9 ML EA EYE PRN (12:39)
[2017-12-08] MEDS ORDERED: Sodium Chloride 0.9% 1,000 ML IV PRN ×4 (12:39)
[2017-12-08] MEDS ORDERED: Diabetic Tussin 200 MG/10 ML UDCUP PO PRN (12:39)
[2017-12-08] MEDS ORDERED: Sodium Chloride 0.65% Nasal 44 ML BOT EA NARE PRN (12:39)
[2017-12-08] MEDS ORDERED: HYDROcodone/Acetaminophen 5/325 mg Tablet PO PRN (12:39)
[2017-12-08] MEDS ORDERED: Ondansetron HCl/PF 4 MG/2 ML Vial IVP PRN (12:39)
[2017-12-08] MEDS ORDERED: Loratadine 10 MG TAB PO PRN (12:39)
[2017-12-08] MEDS ORDERED: NS 0.9% w/ 20 MEQ KCL 1,000 ML IV PRN ×2 (12:39)
[2017-12-08] MEDS ORDERED: Loperamide HCl 2 MG CAP PO PRN (12:39)
[2017-12-08] MEDS ORDERED: Potassium Chloride 20 MEQ TAB PO PRN (12:55)
[2017-12-08] MEDS ORDERED: CCU ELECTROLYTE REPLACEMENT PROTOCOL FS PRN (12:55)
[2017-12-08] MEDS ORDERED: Potassium Phosphate 15 MMOL in Sodium Chloride 0.9% 250 ML 250 ML IV PRN (12:55)
[2017-12-08] MEDS ORDERED: Potassium Chloride 40 MEQ in Sodium Chloride 0.9% 250 ML 250 ML IVPB PRN (12:55)
[2017-12-08] MEDS ORDERED: Potassium Chloride 40 MEQ in Premix Bag 1 BAG IVPB PRN (12:55)
[2017-12-08] MEDS ORDERED: Potassium Phosphate 9 MMOL in Sodium Chloride 0.9% 100 ML IVPB PRN (12:55)
[2017-12-08] MEDS ORDERED: Magnesium Oxide 400 MG TAB PO PRN ×2 (12:55)
[2017-12-08] MEDS ORDERED: Potassium Phosphate 12 MMOL in Sodium Chloride 0.9% 250 ML 250 ML IV PRN (12:55)
[2017-12-08] MEDS ORDERED: Magnesium 2 GM/NS 0.9% 100 ML 2 GM in Premix Bag 1 BAG IVPB PRN (12:55)
[2017-12-08 13:22] LABS: Anion Gap 16 mmol/L (10-20); BUN (Urea Nitrogen) 13 mg/dL (8.9-20.6); Calc. Creatinine Clearance 0 mL/min (70-130); Calcium 8.3 mg/dL (7.8-10.44); Carbon Dioxide 15 mmol/L (22-29); Chloride 106 mmol/L (98-107); Estimated GFR-MDRD 82; Glucose 212 mg/dL (70-105); Potassium 3.9 mmol/L (3.5-5.1); Sodium 133 mmol/L (136-145)
[2017-12-08] MEDS: Famotidine/PF 20 mg/2ml Vial SLOW IVP SCH (20:44)
[2017-12-08 21:04] LABS: Anion Gap 15 mmol/L (10-20); BUN (Urea Nitrogen) 9 mg/dL (8.9-20.6); Calc. Creatinine Clearance 111 mL/min (70-130); Calcium 8.7 mg/dL (7.8-10.44); Carbon Dioxide 17 mmol/L (22-29); Chloride 104 mmol/L (98-107); Estimated GFR-MDRD 85; Glucose 226 mg/dL (70-105); Potassium 3.7 mmol/L (3.5-5.1); Sodium 132 mmol/L (136-145)
[2017-12-08] MEDS: D5 1/2 NS w/20 mEq KCL 1,000 ML IV PRN (22:22)
[2017-12-09] MEDS: D5 1/2 NS w/20 mEq KCL 1,000 ML IV PRN ×2 (02:59→07:19)
[2017-12-09] MEDS ORDERED: Promethazine HCl 12.5 MG in Sodium Chloride 0.9% 50 ML IVPB PRN (05:26)
[2017-12-09 06:10] LABS: Hemoglobin A1c 4.6 % (4.0-6.0)
[2017-12-09 06:44] LABS: ALT (SGPT) 9 U/L (8-55); AST (SGOT) 12 U/L (5-34); Albumin 2.8 g/dL (3.5-5.0); Alkaline Phosphatase 89 U/L (40-150); Anion Gap 8 mmol/L (10-20); BUN (Urea Nitrogen) 7 mg/dL (8.9-20.6); Bilirubin, Total 0.3 mg/dL (0.2-1.2); Calc. Creatinine Clearance 186 mL/min (70-130); Calcium 7.7 mg/dL (7.8-10.44); Carbon Dioxide 23 mmol/L (22-29); Chloride 109 mmol/L (98-107); Estimated GFR-MDRD Greater than 90; Globulin 2.8 g/dL (2.4-3.5); Glucose 111 mg/dL (70-105); Magnesium 1.5 mg/dL (1.6-2.6); Phosphorus 1.7 mg/dL (2.3-4.7); Protein, Total 5.6 g/dL (6.0-8.3); Sodium 137 mmol/L (136-145)
[2017-12-09 06:46] LABS: Hemoglobin 10.2 g/dL (14.0-18.0); Mean Corpuscular HGB CONC 31.5 g/dL (32.0-36.0); Mean Corpuscular Hemoglobin 25.7 pg (27.0-31.0); Mean Corpuscular Volume 81.4 fL (78.0-98.0); Mean Platelet Volume 7.1 fL (7.4-10.4); Platelet Count 202 thou/uL (130-400); RBC Distribution Width 12.4 % (11.5-14.5); Red Blood Cell (RBC) Count 3.97 mill/uL (4.70-6.10); White Blood Cell (WBC) Count 13.8 thou/uL (4.8-10.8)
[2017-12-09 07:51] LABS: Band 38 % (5-11); Lymphocytes 6 % (21-51); MDiff Complete? YES; Monocytes 5 % (0-10); Neutrophil 51 % (42-75); PLT Morphology Comment Appears Adequate; Polychromasia SLIGHT = 2-3 cells (100X) (0-2/hpf)
[2017-12-09] MEDS: Potassium Chloride 20 MEQ in Premix Bag 1 BAG IVPB SCH ×2 (08:22→09:26)
[2017-12-09] MEDS: Enoxaparin Sodium 40 MG/0.4 ML SYRINGE SC SCH (08:32)
[2017-12-09] MEDS: Famotidine/PF 20 mg/2ml Vial SLOW IVP SCH (08:32)
[2017-12-09] MEDS ORDERED: Dextrose 5% in Water 1,000 ML IV PRN (08:37)
[2017-12-09] MEDS ORDERED: Dextrose 50% Abboject 50 ML SYRINGE SLOW IVP PRN (08:37)
[2017-12-09] MEDS ORDERED: HumaLOG 300 UNITS/3 ML VIAL SC PRN (08:57)
[2017-12-09] MEDS ORDERED: Famotidine 20 MG TAB PO SCH (09:00)
--- NOTE | 2017-12-09 09:40 | PRG ---
DATE OF SERVICE: 12/09/2017 SUBJECTIVE: The patient has no specific complaints this morning; however, he did have some incontine nce in his bed this morning. He is challenging to talk to this morning because his thoughts are very scattered. I did have a long conversation with the patient's father. He has seen these type of sym ptoms happen to the patient before. He reports the patient is highly intelligent and functional, but will go through cycles where he does not sleep for a period of time, starts having poor judgment and does not manage his diabetes and ends up with DKA and in the hospital. PHYSICAL EXAMINATION: VITAL SIGNS: T-max 99.3, temperature 99.4, pulse 99, respirations 16, O2 sat 99% on room air, BP is 118/73. GENERAL: Age appropriate male. He is in no distress. He is awake and alert. HEENT: PERRL. No OP lesions. NECK: Supple and symmetric. HEART: Regular rate and rhythm without murmurs. LUNGS: Reveal some right basilar rales, otherwise clear. ABDOMEN: Soft, nontender, nondistended. EXTREMITIES: Warm and dry without edema. NEURO/PSYCH: The patient's thoughts are completely scattered. He has a difficult time following a l ogical train of thought. He has a bit of paranoia. When asked if he was considering hurting himself , he stated it is hard not to feel like hurting himself when you have medical problems and are traine d to inflict pain, indicating acting out as if he was checking his blood sugar and poking his finger. LABORATORY DATA: White count 13.8, hemoglobin 10.2, platelets 202, 38% bands. Sodium 137, potassium 3.0, chloride 109, anion gap is 8, BUN 7, creatinine 0.66, blood sugar 156, calcium 7.7, phosphorus 1.7, magnesium 1.5. Albumin is 2.8, total protein is 5.6. Beta hydroxybutyrate 0.59 down from 8.0 o n presentation. I ordered a repeat chest x-ray this morning which appears to be generally clear. Still waiting for f ormal interpretation. ASSESSMENT AND PLAN: 1. Diabetic ketoacidosis. The patient has apparently some underlying mental health issues, which I think have contributed to his noncompliance and resulted in the diabetic ketoacidosis. Currently, hi s anion gap is completely normal. His blood sugars are fine. I am going to stop the insulin drip, p ut him on a regular diabetic diet and give him some sliding scale insulin and continue to monitor him today. 2. Leukocytosis with a left shift, unclear etiology. He has some right basilar rales, concerning fo r a little bit of pneumonitis. He is not having any shortness of breath, cough. Initial look on the chest x-ray, per my view does not appear to show any significant inflammation. We will need to cont inue to monitor this. 3. Hypokalemia. The patient is a bit paranoid about having another IV. It looks like we will be ab le to stop the insulin drip and likely just give him p.o. supplementation. 4. Hypophosphatemia. 5. Hypomagnesemia. 6. Mild anemia. The patient's hemoglobin and platelets both dropped significantly on follow up labs . Unclear if this is mostly dilutional. 7. Bipolar, jennie. In talking to the patient, he has significant activated symptoms with insomnia a nd scattered thoughts and poor judgment and insight. According to his father this has been somewhat cyclical and following these episodes, he will typically "crash" and sleep for a period of time. I h ad a long discussion with the father. I am not a psychiatrist nor do I have access to one here; haroldo fernandez, we will do our best to try to manage the activated symptoms and will start Seroquel 25 mg p.o. b .i.d. I believe if he could get some good sleep it would be significantly beneficial to him. We jose guadalupe l also see if we can help him arrange some sort of follow up from here as soon as we can make that nash ppen at the time of discharge.
--- NOTE | 2017-12-09 09:51 | RAD ---
PORTABLE CHEST 1 VIEW: DATE: 12/09/17. TIME: 8:47 a.m. HISTORY: Elevated WBCs. FINDINGS: The heart size is normal. The lungs are expanded without focal areas of consolidation, pneumothorace s, or ejection fractions. IMPRESSION: No radiographic evidence of acute cardiopulmonary process. POS: [facility]
[2017-12-09] MEDS ORDERED: Insulin Glargine 20 UNITS in Pre-Filled Syringe 1 EACH SC SCH (10:15)
[2017-12-09] MEDS ORDERED: Magnesium Sulfate 4 GM in Sodium Chloride 0.9% 250 ML 250 ML IVPB SCH (10:15)
[2017-12-09] MEDS ORDERED: Potassium Phosphate 30 MMOL in Sodium Chloride 0.9% 500 ML IVPB SCH (10:15)
[2017-12-09] MEDS ORDERED: Potassium Chloride 20 MEQ TAB PO SCH (10:15)
--- NOTE | 2017-12-09 10:21 | PRG ---
DATE OF SERVICE: 12/09/2017 SERVICE: Pulmonary Medicine. INTERVAL HISTORY: The patient is doing fine from a metabolic standpoint. He remains a little bit co nfused. Otherwise, his dad says he is back to baseline. He denies any fevers or chills. He is apurva thing comfortably. His appetite has picked back up and is hungry. Otherwise, there has been no inte rval change to his condition. PHYSICAL EXAMINATION: VITAL SIGNS: Afebrile, pulse 99, blood pressure 118/73, respirations 16, saturation 99% on room air. GENERAL: The patient is awake and alert, in no apparent distress. LUNGS: Excellent air entry. There is no prolonged expiratory phase. Dependent crackles are present . HEART: Normal rate, regular. ABDOMEN: Soft, nontender, nondistended. Bowel sounds are positive. MUSCULOSKELETAL: No cyanosis or clubbing. There is no pitting in the bilateral lower extremities. NEUROLOGIC: Grossly nonfocal. LABORATORY DATA: WBC 13.8, hemoglobin 10.2, platelets 202,000. Potassium 3.0, bicarbonate 23, anion gap 8. Phosphorus and magnesium are low. Liver function studies are otherwise unremarkable. Beta hydroxybutyric acid is unremarkable. IMAGING: Chest x-ray demonstrates no acute cardiopulmonary abnormality. ASSESSMENT: 1. Diabetic ketoacidosis. 2. Type 1 diabetes mellitus. 3. Medical noncompliance. DISCUSSION AND PLAN: The patient's appetite has improved and his gap is closed. Over resuscitation is likely what is causing his elevated white blood cell count, but we will continue to monitor for in creasing signs of sepsis. The chest x-ray was reassuring. At this point, he is stable for transitio n to the medical unit once we convert him over to subcutaneous insulin. He will have no further requ irements for Pulmonary or Critical Care opinion once he arrives on the floor and I will sign off at t hat time. Please call with additional questions or concerns.
[2017-12-09] MEDS: HumaLOG 300 UNITS/3 ML VIAL SC SCH ×2 (12:49→16:56)
[2017-12-09 13:34] VITALS: BMI 23.6
[2017-12-10] MEDS ORDERED: Lorazepam 2 MG/ML VIAL SLOW IVP SCH (01:30)
[2017-12-10] MEDS ORDERED: Sterile Water 10 ML VIAL FS SCH (02:00)
[2017-12-10] MEDS ORDERED: Ziprasidone 20 MG VIAL IM SCH (02:00)
[2017-12-10 05:02] LABS: #Basophils 0.1 thou/uL (0.0-0.2); #Eosinphils 0.1 thou/uL (0.0-0.7); #Monocytes 0.5 thou/uL (0.11-0.59); #Neutrophils 2.8 thou/uL (1.40-6.50); %Eosinophils 1.2 % (0.0-10.0); %Lymphocytes 46.6 % (21.0-51.0); %Monocytes 7.9 % (0.0-10.0); %Neutrophils 43.3 % (42.0-75.0); Hemoglobin 15.5 g/dL (14.0-18.0); Mean Corpuscular HGB CONC 33.6 g/dL (32.0-36.0); Mean Corpuscular Hemoglobin 29.7 pg (27.0-31.0); Mean Corpuscular Volume 88.2 fL (78.0-98.0); Mean Platelet Volume 7.7 fL (7.4-10.4); Platelet Count 347 thou/uL (130-400); Red Blood Cell (RBC) Count 5.21 mill/uL (4.70-6.10); White Blood Cell (WBC) Count 6.4 thou/uL (4.8-10.8)
[2017-12-10 06:21] LABS: Anion Gap 14 mmol/L (10-20); BUN (Urea Nitrogen) 7 mg/dL (8.9-20.6); Calc. Creatinine Clearance 133 mL/min (70-130); Calcium 9.5 mg/dL (7.8-10.44); Carbon Dioxide 21 mmol/L (22-29); Chloride 105 mmol/L (98-107); Estimated GFR-MDRD Greater than 90; Glucose 270 mg/dL (70-105); Magnesium 1.9 mg/dL (1.6-2.6); Phosphorus 3.1 mg/dL (2.3-4.7); Potassium 3.3 mmol/L (3.5-5.1); Sodium 137 mmol/L (136-145)
[2017-12-10] MEDS ORDERED: HumaLOG 300 UNITS/3 ML VIAL SC PRN (07:33)
[2017-12-10] MEDS ORDERED: Potassium Chloride 20 MEQ TAB PO SCH (07:45)
[2017-12-10] MEDS: Enoxaparin Sodium 40 MG/0.4 ML SYRINGE SC SCH (11:44)
[2017-12-10] MEDS: Insulin Glargine 15 UNITS in Pre-Filled Syringe 1 EACH SC SCH (11:44)
[2017-12-10] MEDS: Multivit, Therapeutic 1 TAB PO SCH (11:44)
[2017-12-10] MEDS: HumaLOG 300 UNITS/3 ML VIAL SC SCH ×4 (11:45→17:28)
[2017-12-10] MEDS: HumaLOG 300 UNITS/3 ML VIAL SC PRN ×2 (11:50→17:06)
[2017-12-10] MEDS ORDERED: traZODone HCl 50 MG TAB PO PRN (13:17)
--- NOTE | 2017-12-10 13:20 | PDOC.PN ---
- Subjective Encounter Start Date: 12/10/17 Encounter Start Time: 07:45 -: old records requested/rev pt has no sleep last night, seroquel did not work, responded better to geodon - Objective Resuscitation Status: Resuscitation Status FULL:Full Resuscitation MAR Reviewed: Yes Vital Signs & Weight: Vital Signs (12 hours) Temp Pulse Resp BP Pulse Ox 12/10/17 11:34 98.0 F 108 H 18 159/83 H 98 12/10/17 08:00 99 12/10/17 07:36 97.3 F L 73 18 129/80 99 Weight Admit Weight 161 lb Weight 165 lb I&O: 12/09/17 12/10/17 12/11/17 06:59 06:59 06:59 Intake Total 4610 550 Output Total 1470 Balance 3140 550 Result Diagrams: 12/10/17 03:52 12/10/17 03:52 Additional Labs: Accuchecks 12/10/17 12/10/17 12/09/17 11:20 05:49 20:41 POC Glucose 328 H 236 H 105 12/09/17 12/09/17 16:47 13:46 POC Glucose 160 H 260 H Phys Exam - Physical Examination Constitutional: NAD HEENT: PERRLA, moist MMs, sclera anicteric Neck: no JVD, supple Respiratory: no wheezing, no rales, no rhonchi Cardiovascular: RRR, no significant murmur, no rub Gastrointestinal: soft, non-tender, no distention, positive bowel sounds Musculoskeletal: no edema, pulses present Neurological: non-focal, normal sensation, moves all 4 limbs Psychiatric: normal affect, A&O x 3 Skin: no rash, normal turgor Dx/Plan (1) Insomnia Code(s): G47.00 - INSOMNIA, UNSPECIFIED Status: Acute (2) Abnormal blood electrolyte level Code(s): E87.8 - OTH DISORDERS OF ELECTROLYTE AND FLUID BALANCE, NEC Status: Acute (3) DKA (diabetic ketoacidoses) Code(s): E13.10 - OTH DIABETES MELLITUS WITH KETOACIDOSIS WITHOUT COMA Status : Acute (4) Cannabis abuse Code(s): F12.10 - CANNABIS ABUSE, UNCOMPLICATED Status: Chronic (5) Diabetes mellitus type 1 Status: Chronic - Plan cont current plan of care, plan discussed w/ family * replace potassium * spoke with father and updated, he has still many concerns regarding his sleep * will change to po geodon 20 mg Q HS * medication reviewed as below * symptomatic treatment as below. Review of Systems - Review of Systems Eyes: negative: Pain, Vision Change, Conjunctivae Inflammation, Eyelid Inflammation, Redness, Other ENT: negative: Ear Pain, Ear Discharge, Nose Pain, Nose Discharge, Nose Congestion, Mouth Pain, Mouth Swelling, Throat Pain, Throat Swelling, Other Respiratory: negative: Cough, Dry, Shortness of Breath, Hemoptysis, SOB with Excertion, Pleuritic Pain, Sputum, Wheezing Cardiovascular: negative: chest pain, palpitations, orthopnea, paroxysmal nocturnal dyspnea, edema, light headedness, other Gastrointestinal: negative: Nausea, Vomiting, Abdominal Pain, Diarrhea, Constipation, Melena, Hematochezia, Other Genitourinary: negative: Dysuria, Frequency, Incontinence, Hematuria, Retention , Other Musculoskeletal: negative: Neck Pain, Shoulder Pain, Arm Pain, Back Pain, Hand Pain, Leg Pain, Foot Pain, Other Skin: negative: Rash, Lesions, Aries, Bruising, Other - Medications/Allergies Allergies/Adverse Reactions: Allergies Allergy/AdvReac Type Severity Reaction Status Date / Time No Known Allergies Allergy Unverified 01/20/17 13:22 Medications: Current Medications Acetaminophen (Tylenol) 650 mg PO Q4H PRN PRN Reason: Headache/Fever or Pain Al Hydroxide/Mg Hydroxide (Maalox) 30 ml PO Q6H PRN PRN Reason: Heartburn or Indigestion Calcium Carbonate (Tums) 1,000 mg PO Q4H PRN PRN Reason: Heartburn or Indigestion Dextrose/Water (Dextrose 50%) 25 gm SLOW IVP PRN PRN PRN Reason: Hypoglycemia Enoxaparin Sodium (Lovenox) 40 mg SC 0900 [facility] Last Admin: 12/10/17 11:44 Dose: 40 mg Glucagon (Glucagon) 1 mg IM PRN PRN PRN Reason: Hypoglycemia Guaifenesin (Robitussin Sf) 200 mg PO Q4H PRN PRN Reason: Cough Dextrose/Water (D5w) 1,000 mls @ 0 mls/hr IV .Q0M PRN PRN Reason: Hypoglycemia Insulin Glargine 15 units/ (Miscellaneous Medication) 0.15 mls @ 0 mls/hr SC QAM [facility] Last Admin: 12/10/17 11:44 Dose: 0.15 mls Insulin Human Lispro (Humalog) 5 units SC AC [facility] Last Admin: 12/10/17 12:01 Dose: 5 unit Insulin Human Lispro (Humalog) 0 units SC .MODERATE SLIDING SC PRN PRN Reason: Moderate Correctional Scale Last Admin: 12/10/17 11:50 Dose: 8 unit Insulin Human Lispro (Humalog) 0 units SC .BEDTIME SLIDING SC PRN PRN Reason: Bedtime Correctional Scale Labetalol HCl (Normodyne) 10 mg SLOW IVP Q4H PRN PRN Reason: Systolic BP > 180 Loperamide HCl (Imodium) 2 mg PO PRN PRN PRN Reason: Diarrhea/Loose Stools Loratadine (Claritin) 10 mg PO DAILYPRN PRN PRN Reason: Sinus Symptoms Multivitamins (Theragran) 1 tab PO DAILY [facility] Last Admin: 12/10/17 11:44 Dose: 1 tab Ondansetron HCl (Zofran Odt) 4 mg PO Q6H PRN PRN Reason: Nausea/Vomiting Ondansetron HCl (Zofran) 4 mg IVP Q6H PRN PRN Reason: Nausea/Vomiting Last Admin: 12/08/17 20:52 Dose: 4 mg Phenol (Chloraseptic [place] 180 Ml Bot) 0 ml PO PRN PRN PRN Reason: Sore Throat Senna (Senokot) 2 tab PO HSPRN PRN PRN Reason: Constipation Sodium Chloride (C-Road Nasal [place] 0.65%) 0 ml EA NARE QIDPRN PRN PRN Reason: Nasal Congestion Sodium Chloride (Flush - Normal Saline) 10 ml IVF Q12HR [facility] Last Admin: 12/10/17 11:45 Dose: 10 ml Sodium Chloride (Flush - Normal Saline) 10 ml IVF PRN PRN PRN Reason: Saline Flush Trazodone HCl (Desyrel) 50 mg PO HS PRN PRN Reason: Insomnia Ziprasidone (Geodon) 20 mg PO HS [facility]
[2017-12-10] MEDS: Ziprasidone 20 MG CAP PO SCH (20:11)
[2017-12-10] MEDS: Lorazepam 2 MG/ML VIAL SLOW IVP PRN (20:18)
[2017-12-11] MEDS: Lorazepam 2 MG/ML VIAL SLOW IVP PRN ×3 (01:37→19:26)
[2017-12-11 05:45] LABS: Anion Gap 11 mmol/L (10-20); BUN (Urea Nitrogen) 8 mg/dL (8.9-20.6); Calc. Creatinine Clearance 132 mL/min (70-130); Calcium 9.7 mg/dL (7.8-10.44); Carbon Dioxide 27 mmol/L (22-29); Chloride 104 mmol/L (98-107); Estimated GFR-MDRD Greater than 90; Glucose 146 mg/dL (70-105); Magnesium 2.1 mg/dL (1.6-2.6); Phosphorus 4.9 mg/dL (2.3-4.7); Potassium 2.9 mmol/L (3.5-5.1); Sodium 139 mmol/L (136-145)
[2017-12-11] MEDS ORDERED: Potassium Chloride 20 MEQ TAB PO SCH ×3 (06:15→18:00)
--- NOTE | 2017-12-11 06:37 | PDOC.EVN ---
Event Note - Event Note Event Note: Paged by RN pt expressed suicidal ideation, we will place in 1:1 sitter ,will need colleagues to follow up in am for psych eval
[2017-12-11 07:27] LABS: Band 5 % (5-11); Eosinophils 4 % (0-10); Hemoglobin 15.7 g/dL (14.0-18.0); Lymphocytes 39 % (21-51); MDiff Complete? YES; Mean Corpuscular HGB CONC 33.8 g/dL (32.0-36.0); Mean Corpuscular Hemoglobin 29.6 pg (27.0-31.0); Mean Corpuscular Volume 87.5 fL (78.0-98.0); Mean Platelet Volume 7.5 fL (7.4-10.4); Monocytes 10 % (0-10); Neutrophil 42 % (42-75); Platelet Count 329 thou/uL (130-400); RBC Distribution Width 11.1 % (11.5-14.5); Red Blood Cell (RBC) Count 5.33 mill/uL (4.70-6.10); White Blood Cell (WBC) Count 8.8 thou/uL (4.8-10.8)
[2017-12-11] MEDS: Enoxaparin Sodium 40 MG/0.4 ML SYRINGE SC SCH (08:15)
[2017-12-11] MEDS: Multivit, Therapeutic 1 TAB PO SCH (08:16)
[2017-12-11] MEDS: HumaLOG 300 UNITS/3 ML VIAL SC SCH ×3 (08:25→18:04)
[2017-12-11] MEDS: Insulin Glargine 15 UNITS in Pre-Filled Syringe 1 EACH SC SCH (09:36)
--- NOTE | 2017-12-11 10:06 | PDOC.PN ---
- Subjective Encounter Start Date: 12/11/17 Encounter Start Time: 07:40 last night pt had suicidal ideation, so sitter arranged Patient seen and examined. No new complaints. - Objective Resuscitation Status: Resuscitation Status FULL:Full Resuscitation MAR Reviewed: Yes Vital Signs & Weight: Vital Signs (12 hours) Temp Pulse Resp BP Pulse Ox 12/11/17 08:00 98.0 F 116 H 18 129/87 96 12/11/17 04:00 97.4 F L 109 H 16 128/81 96 12/11/17 00:00 97.4 F L 115 H 18 139/90 97 Weight Admit Weight 161 lb Weight 165 lb I&O: 12/10/17 12/11/17 12/12/17 06:59 06:59 06:59 Intake Total 550 1702 360 Balance 550 1702 360 Result Diagrams: 12/11/17 04:23 12/11/17 04:23 Additional Labs: Accuchecks 12/11/17 12/10/17 12/10/17 04:40 23:41 20:43 POC Glucose 142 H 187 H 274 H 12/10/17 12/10/17 12/10/17 19:56 16:08 11:20 POC Glucose 59 L* 236 H 328 H Phys Exam - Physical Examination Constitutional: NAD HEENT: PERRLA, moist MMs, sclera anicteric Neck: no JVD, supple Respiratory: no wheezing, no rales, no rhonchi Cardiovascular: RRR, no significant murmur, no rub Gastrointestinal: soft, non-tender, no distention, positive bowel sounds Musculoskeletal: no edema, pulses present Neurological: non-focal, normal sensation, moves all 4 limbs Lymphatic: no nodes Psychiatric: normal affect, A&O x 3 Skin: no rash, normal turgor Dx/Plan (1) Insomnia Code(s): G47.00 - INSOMNIA, UNSPECIFIED Status: Acute (2) Abnormal blood electrolyte level Code(s): E87.8 - OTH DISORDERS OF ELECTROLYTE AND FLUID BALANCE, NEC Status: Acute (3) DKA (diabetic ketoacidoses) Code(s): E13.10 - OTH DIABETES MELLITUS WITH KETOACIDOSIS WITHOUT COMA Status : Acute (4) Cannabis abuse Code(s): F12.10 - CANNABIS ABUSE, UNCOMPLICATED Status: Chronic (5) Diabetes mellitus type 1 Status: Chronic - Plan cont current plan of care * consult [facility] * replace potassium and recheck * bedside sitter * medication reviewed as below * symptomatic treatment * may need psych placement. Review of Systems - Review of Systems ENT: negative: Ear Pain, Ear Discharge, Nose Pain, Nose Discharge, Nose Congestion, Mouth Pain, Mouth Swelling, Throat Pain, Throat Swelling, Other Respiratory: negative: Cough, Dry, Shortness of Breath, Hemoptysis, SOB with Excertion, Pleuritic Pain, Sputum, Wheezing Cardiovascular: negative: chest pain, palpitations, orthopnea, paroxysmal nocturnal dyspnea, edema, light headedness, other Gastrointestinal: negative: Nausea, Vomiting, Abdominal Pain, Diarrhea, Constipation, Melena, Hematochezia, Other Genitourinary: negative: Dysuria, Frequency, Incontinence, Hematuria, Retention , Other Musculoskeletal: negative: Neck Pain, Shoulder Pain, Arm Pain, Back Pain, Hand Pain, Leg Pain, Foot Pain, Other Skin: negative: Rash, Lesions, Aries, Bruising, Other - Medications/Allergies Allergies/Adverse Reactions: Allergies Allergy/AdvReac Type Severity Reaction Status Date / Time No Known Allergies Allergy Unverified 01/20/17 13:22 Medications: Current Medications Acetaminophen (Tylenol) 650 mg PO Q4H PRN PRN Reason: Headache/Fever or Pain Al Hydroxide/Mg Hydroxide (Maalox) 30 ml PO Q6H PRN PRN Reason: Heartburn or Indigestion Calcium Carbonate (Tums) 1,000 mg PO Q4H PRN PRN Reason: Heartburn or Indigestion Dextrose/Water (Dextrose 50%) 25 gm SLOW IVP PRN PRN PRN Reason: Hypoglycemia Enoxaparin Sodium (Lovenox) 40 mg SC 0900 [facility] Last Admin: 12/11/17 08:15 Dose: 40 mg Glucagon (Glucagon) 1 mg IM PRN PRN PRN Reason: Hypoglycemia Guaifenesin (Robitussin Sf) 200 mg PO Q4H PRN PRN Reason: Cough Dextrose/Water (D5w) 1,000 mls @ 0 mls/hr IV .Q0M PRN PRN Reason: Hypoglycemia Insulin Glargine 15 units/ (Miscellaneous Medication) 0.15 mls @ 0 mls/hr SC QAM [facility] Last Admin: 12/11/17 09:36 Dose: 0.15 mls Insulin Human Lispro (Humalog) 5 units SC AC [facility] Last Admin: 12/11/17 08:25 Dose: 5 unit Insulin Human Lispro (Humalog) 0 units SC .MODERATE SLIDING SC PRN PRN Reason: Moderate Correctional Scale Last Admin: 12/10/17 17:06 Dose: 4 unit Insulin Human Lispro (Humalog) 0 units SC .BEDTIME SLIDING SC PRN PRN Reason: Bedtime Correctional Scale Labetalol HCl (Normodyne) 10 mg SLOW IVP Q4H PRN PRN Reason: Systolic BP > 180 Loperamide HCl (Imodium) 2 mg PO PRN PRN PRN Reason: Diarrhea/Loose Stools Loratadine (Claritin) 10 mg PO DAILYPRN PRN PRN Reason: Sinus Symptoms Lorazepam (Ativan) 2 mg SLOW IVP Q6H PRN PRN Reason: .AGITATION Last Admin: 12/11/17 01:37 Dose: 2 mg Multivitamins (Theragran) 1 tab PO DAILY [facility] Last Admin: 12/11/17 08:16 Dose: 1 tab Ondansetron HCl (Zofran Odt) 4 mg PO Q6H PRN PRN Reason: Nausea/Vomiting Ondansetron HCl (Zofran) 4 mg IVP Q6H PRN PRN Reason: Nausea/Vomiting Last Admin: 12/08/17 20:52 Dose: 4 mg Phenol (Chloraseptic [place] 180 Ml Bot) 0 ml PO PRN PRN PRN Reason: Sore Throat Potassium Chloride (K-Dur) 40 meq PO ONE [facility] Stop: 12/11/17 13:00 Senna (Senokot) 2 tab PO HSPRN PRN PRN Reason: Constipation Sodium Chloride ([place] Nasal [place] 0.65%) 0 ml EA NARE QIDPRN PRN PRN Reason: Nasal Congestion Sodium Chloride (Flush - Normal Saline) 10 ml IVF Q12HR [facility] Last Admin: 12/11/17 08:17 Dose: 10 ml Sodium Chloride (Flush - Normal Saline) 10 ml IVF PRN PRN PRN Reason: Saline Flush Last Admin: 12/11/17 01:37 Dose: 10 ml Trazodone HCl (Desyrel) 50 mg PO HS PRN PRN Reason: Insomnia Ziprasidone (Geodon) 20 mg PO HS [facility] Last Admin: 12/10/17 20:11 Dose: 20 mg
[2017-12-11 14:58] LABS: Potassium 3.3 mmol/L (3.5-5.1)
[2017-12-11] MEDS: Ziprasidone 20 MG CAP PO SCH (19:26)
[2017-12-11 20:09] VITALS: BP 122/79; TEMP 98.7
--- NOTE | 2017-12-12 11:22 | DIS ---
DATE OF ADMISSION: 12/08/2017 DATE OF DISCHARGE: 12/11/2017 DISCHARGE DISPOSITION: Inpatient psychiatric facility. PRIMARY CARE PHYSICIAN: Dr. Alejandro Guy. PRIMARY DISCHARGE DIAGNOSES: 1. Diabetic ketoacidosis, resolved. 2. Abnormal blood electrolytes, corrected. SECONDARY DISCHARGE DIAGNOSES: Diabetes type 1, chronic insomnia, unspecified psychiatric problems a nd cannabis abuse. PRIMARY PROCEDURE AND OPERATION: None. RADIOLOGICAL INVESTIGATION: Chest x-ray normal. SIGNIFICANT LABORATORY DATA: WBC 8.8, hemoglobin 15.7, platelets 329. Sodium 139, potassium 3.3, BU N 8, creatinine 0.93, calcium 9.7, magnesium 2.1. LFT normal. Urinalysis showed glucosuria, ketonur ia. Urine drug screen positive for cannabinoids. Serum ketones 0.59. DISCHARGE MEDICATIONS: Tresiba 24-30 units subcu daily, Humalog insulin 6 units a.c. and at bedtime, multivitamin 1 tablet p.o. daily, trazodone 50 mg p.o. at bedtime p.r.n., Geodon 20 mg p.o. at bedti me. CONTRAINDICATIONS: None. CODE STATUS: FULL CODE. INPATIENT CONSULTANTS: Dr. Leon saw this patient at [facility] admission. [facility] was consulted. TEST RESULTS PENDING ON DISCHARGE: None. ALLERGIES: No known drug allergy. DISCHARGE PLAN: Post hospital, the patient is discharged to inpatient psychiatric facility. Subsequ ently, the patient will follow up with Dr. Alejandro Guy. HOSPITAL COURSE: A 22-year-old male who has type 1 diabetes mellitus. He is following Dr. Tucker and his PCP, Dr. Alejandro Gyu. He was admitted by md on 12/08/2017. Please see my HPI for further detail. He came to the ER with nausea, vomiting, abdominal pain, and encephalopathy. This patient w as diagnosed with diabetic ketoacidosis. He was admitted to [facility]. He was treated with DKA protocol treatment. His abnormal electrolytes were corrected. He remained in [facility] 24 hours and that is why [facility] team saw this patient. With the stabilization, the patient was transferred to medical floor . Even before admission, this patient has problems with insomnia and some weird psychiatric problem whi has not diagnosed yet. While in hospital, he had suicidal ideation and he was having insomnia and that is why we started antipsychiatric medication. This patient was requiring Psych placement becau se of his ongoing psychiatric problem. I spoke with Dr. Lam at [facility] psych facility and expla ined him about the patient's hospital course, he agreed to take care of him at psych facility. At th is point, patient is medically stable. The patient is given above-mentioned medication and he will b e discharged to psychiatric facility. Paper work for discharge done. Discharge medication reconciliation done. Total time spent to arrange discharge on the day of discharge is 32 minutes. Please see my progress note from that day as well.
== END 2017-12-11 20:19 | DRG 637 ==
LOC: ERS 05:49 → IMCU/EMU 11:26 → T4-A 12-09 18:37
PROVIDERS: ADMIT Internal Medicine; ATTEND Internal Medicine
DX: E10.10 Type 1 diabetes mellitus with ketoacidosis without coma (principal); G93.41 Metabolic encephalopathy; N17.9 Acute kidney failure, unspecified; E87.1 Hypo-osmolality and hyponatremia; F31.89 Other bipolar disorder; R45.851 Suicidal ideations; D64.9 Anemia, unspecified; E83.42 Hypomagnesemia; E83.39 Other disorders of phosphorus metabolism; E87.6 Hypokalemia; E86.0 Dehydration; Z91.19 Patient's noncompliance with other medical treatment and regimen; R11.2 Nausea with vomiting, unspecified; G47.00 Insomnia, unspecified; Z87.891 Personal history of nicotine dependence
CPT/HCPCS: 36415; 36416; 71045; 80048; 80053; 80306; 80307; 81003; 81015; 82010; 82330; 82435; 82550; 82553; 82803; 83036; 83605; 83690; 83735; 84100; 84132; 84295; 84484; 85014; 85025; 93005; 96365; 96366; 96375; 96376; A4216; J1650; J1815; J2060; J2405; J3475; J3486; J7050; S0028

== ENCOUNTER 2018-04-23 17:40 | Inpatient (IN) | payer BC ==
[2018-04-23] MEDS ORDERED: Ondansetron PF 4 MG/2 ML Vial ONE ×2 (18:32→22:06)
[2018-04-23 20:00] LABS: #Basophils 0.1 thou/uL (0.0-0.2); #Eosinphils 0.1 thou/uL (0.0-0.7); #Lymphocytes 2.3 thou/uL (1.20-3.40); #Monocytes 0.6 thou/uL (0.11-0.59); #Neutrophils 6.6 thou/uL (1.40-6.50); %Basophils 0.7 % (0.0-1.0); %Eosinophils 0.8 % (0.0-10.0); %Lymphocytes 24.1 % (21.0-51.0); %Neutrophils 68.4 % (42.0-75.0); Hemoglobin 18.8 g/dL (14.0-18.0); Mean Corpuscular HGB CONC 34.2 g/dL (32.0-36.0); Mean Corpuscular Volume 87.5 fL (78.0-98.0); Mean Platelet Volume 8.1 fL (7.4-10.4); Platelet Count 396 thou/uL (130-400); Red Blood Cell (RBC) Count 6.29 mill/uL (4.70-6.10); White Blood Cell (WBC) Count 9.6 thou/uL (4.8-10.8)
[2018-04-23 20:22] LABS: ALT (SGPT) 12 U/L (8-55); AST (SGOT) 12 U/L (5-34); Albumin 5.3 g/dL (3.5-5.0); Alkaline Phosphatase 121 U/L (40-150); Anion Gap 32 mmol/L (10-20); BUN (Urea Nitrogen) 10 mg/dL (8.9-20.6); Bilirubin, Total 0.9 mg/dL (0.2-1.2); Calc. Creatinine Clearance 0 mL/min (70-130); Calcium 10.3 mg/dL (7.8-10.44); Chloride 98 mmol/L (98-107); Estimated GFR-MDRD 55; Globulin 3.6 g/dL (2.4-3.5); Glucose 363 mg/dL (70-105); Potassium 4.5 mmol/L (3.5-5.1); Protein, Total 8.9 g/dL (6.0-8.3); Sodium 133 mmol/L (136-145)
[2018-04-23 20:32] LABS: Carbon Dioxide 8 mmol/L (22-29)
[2018-04-23] MEDS ORDERED: Insulin Regular 100 units/100 ml in NS IVPB SCH (21:00)
[2018-04-23 21:19] LABS: Lipase 5 U/L (8-78); Magnesium 1.9 mg/dL (1.6-2.6); Phosphorus 3.2 mg/dL (2.3-4.7)
[2018-04-23 21:23] LABS: Base Excess-Venous -14.1 mmol/L (-2.0 to 3.0); CO2 Tension (PvCO2) 29.4 mmHg (40.0-50.0); Calcium, Ionized 1.18 mmol/L (See Comments:); Chloride 108 mmol/L (98-107); Hemoglobin - Calc 18.8 g/dL (14.0-18.0); O2 Tension (PvO2) 19.8 mmHg (35.0-45.0); Potassium 4.8 mmol/L (3.5-5.1); Sodium 133 mmol/L (138-145); T. Carbon Dioxide 12.9 mmol/L (22.0-28.0); pH (Venous) 7.218 (7.320-7.430); vO2 Saturation-calc 23.8 % (60.0-85.0)
[2018-04-23] MEDS ORDERED: Mag-Al 1200 mg/1200 mg/30 ML UDCUP ONE (21:44)
[2018-04-23] MEDS ORDERED: Lidocaine Viscous Sol 2% 15 ml UD Cup ONE (21:44)
[2018-04-23] MEDS ORDERED: NS 0.9% w/ 20 MEQ KCL 1,000 ML IV SCH (21:45)
[2018-04-23] MEDS ORDERED: Magnesium 2 GM/NS 0.9% 100 ML 2 GM in Premix Bag 1 BAG IVPB PRN (23:03)
[2018-04-23] MEDS ORDERED: Potassium Phosphate 9 MMOL in Sodium Chloride 0.9% 100 ML IVPB PRN (23:03)
[2018-04-23] MEDS ORDERED: Potassium Phosphate 12 MMOL in Sodium Chloride 0.9% 250 ML 250 ML IV PRN (23:03)
[2018-04-23] MEDS ORDERED: Potassium Chloride 40 MEQ in Premix Bag 1 BAG IVPB PRN (23:03)
[2018-04-23] MEDS ORDERED: Potassium Chloride 40 MEQ in Sodium Chloride 0.9% 250 ML 250 ML IVPB PRN (23:03)
[2018-04-23] MEDS ORDERED: NS 0.9% w/ 20 MEQ KCL 1,000 ML/1,000 ML BAG IV PRN ×2 (23:03)
[2018-04-23] MEDS ORDERED: Potassium Chloride 20 MEQ TAB PO PRN (23:03)
[2018-04-23] MEDS ORDERED: Dextrose 5 %-0.45 % NaCl 1,000 ML IV PRN (23:03)
[2018-04-23] MEDS ORDERED: Dextrose 50% Abboject 50 ML SYRINGE SLOW IVP PRN (23:03)
[2018-04-23] MEDS ORDERED: Sodium Chloride 0.9% 1,000 ML IV PRN ×4 (23:03)
[2018-04-23] MEDS ORDERED: Potassium Phosphate 15 MMOL in Sodium Chloride 0.9% 250 ML 250 ML IV PRN (23:03)
[2018-04-23] MEDS ORDERED: Magnesium Oxide 400 MG TAB PO PRN ×2 (23:03)
[2018-04-23] MEDS ORDERED: Dextrose 5% in Water 1,000 ML IV PRN (23:03)
[2018-04-23] MEDS ORDERED: CCU ELECTROLYTE REPLACEMENT PROTOCOL FS PRN (23:03)
[2018-04-23] MEDS ORDERED: ADD ELECTROLYTE REPLACEMENT SET TO PROFILE FS SCH (23:15)
[2018-04-23] MEDS: D5 1/2 NS w/20 mEq KCL 1,000 ML IV PRN (23:26)
[2018-04-23 23:36] VITALS: BMI 26.1
[2018-04-24] MEDS ORDERED: Ondansetron PF 4 MG/2 ML Vial SLOW IVP PRN (01:40)
[2018-04-24] MEDS ORDERED: Sodium Chloride 0.9% (PF) 10 ML VIAL FS PRN (01:40)
[2018-04-24] MEDS ORDERED: HYDROcodone/Acetaminophen 5/325 mg Tablet PO PRN (01:40)
[2018-04-24] MEDS ORDERED: Pantoprazole 40 MG VIAL IVP SCH (01:45)
[2018-04-24] MEDS: D5 1/2 NS w/20 mEq KCL 1,000 ML IV PRN (03:32)
[2018-04-24 06:07] VITALS: BP 140/82
[2018-04-24 06:50] LABS: Anion Gap 17 mmol/L (10-20); BUN (Urea Nitrogen) 8 mg/dL (8.9-20.6); Calc. Creatinine Clearance 124 mL/min (70-130); Calcium 8.8 mg/dL (7.8-10.44); Carbon Dioxide 12 mmol/L (22-29); Chloride 106 mmol/L (98-107); Estimated GFR-MDRD 87; Glucose 133 mg/dL (70-105); Sodium 131 mmol/L (136-145)
[2018-04-24] MEDS: Pantoprazole 40 MG VIAL IVP SCH ×2 (08:58→20:39)
[2018-04-24] MEDS ORDERED: Prevnar 13-Val Conj/PF 0.5 ML SYRINGE IM ONE (09:00)
[2018-04-24] MEDS ORDERED: Lidocaine 2% Viscous Solution 20 ML, Aluminum & Magnesium Hydroxide 30 ML, Donnatal Eli... SSW PRN (09:54)
[2018-04-24] MEDS ORDERED: Acetaminophen 325 MG TAB PO PRN (09:54)
[2018-04-24] MEDS ORDERED: Insulin Glargine 34 UNITS in Pre-Filled Syringe 1 EACH SC SCH (10:00)
--- NOTE | 2018-04-24 11:46 | HP ---
CHIEF COMPLAINT: Diabetic ketoacidosis with dehydration. HISTORY OF PRESENT ILLNESS: The patient is a 22-year-old male, who has had several previous episodes of hospitalization for DKA. This episode began 2 days ago when he began to experience intractable nausea and vomiting. He had several medications at his home, Phenergan and Zofran and attempted for 2 days to get control of this, but when it became obvious, he had no other options and they were not working. He came to the emergency room for medical care. Prior to coming to the ER, his home fingerstick glucose was 320. When he arrived, his WBCs were 9.6, hemoglobin 18.8 with hematocrit of 55, platelets were 396. A pH was 7.218, pCO2 of 29.4, pO2 of 19.8, with a bicarb of 12. The sodium is down to 131, potassium 4.0, chloride 106, CO2 was 12, BUN 8, creatinine 1.06 with a GFR of 87. It is elected to put him in the hospital for further evaluation. IV fluids and IV insulin for drip if needed. PAST MEDICAL HISTORY: Significant for multiple prior hospitalizations for DKA, the last being in November 2017. Another significant issue is extreme medical noncompliance. PAST SURGICAL HISTORY: Negative. PAST PSYCHIATRIC HISTORY: He has significant bipolar disorder and has been hospitalized for such. SOCIAL HISTORY: He lives with his parents. He has a history of multiple polysubstance abuse including marijuana. Does not smoke and drinks socially. Uses marijuana regularly. ALLERGIES: NEGATIVE. MEDICATIONS: Sliding scale treatment of insulin. This is supervised by Dr. Tucker. REVIEW OF SYSTEMS: GENERAL: Significant for weakness, nausea, and vomiting. HEENT: Denies any sores, ulcers, drainage from his ears, nose, or throat. CHEST: Denies shortness of breath or coughing. HEART: Denies palpitations or chest pain. ABDOMEN: Admits to significant intractable nausea and vomiting. Has only had one episode of diarrhea. : Denies burning on urination or blood in urine or stool. EXTREMITIES: Denies any painful range of motion, swelling of limbs or joints. LYMPHATIC: Denies any edema or bruising of the extremities. SKIN: Denies any new rashes or lesions. NEUROLOGIC: Has no trouble with headaches. Has areas of anesthesia or paresthesia. PSYCHIATRIC: Bipolar stable at this time. Denies any hallucinations, delusions , or uncontrollable thoughts. PHYSICAL EXAMINATION: VITAL SIGNS: At the time of admission, vital signs initially, blood pressure 169/102, pulse 90, respirations 20, and temperature 98.6. Pain scale of 6/10 and this is a periumbilical pain that responded to GI cocktail in the ER. HEENT: Normocephalic and atraumatic. Pupils are equal, round, and reactive to light. Extraocular muscles are intact. TMs and nares are clear. Pharynx was dry at the time of admission. NECK: Supple. Trachea midline. CHEST: Clear to auscultation. HEART: Regular rate and rhythm without murmur and was tachycardic at the time of admission. ABDOMEN: Soft, epigastric tenderness mainly, at the time, the patient is nontender now. : Deferred. EXTREMITIES: Without clubbing, cyanosis, or edema. Normal range of motion present. SKIN: Without acute rashes or lesions. NEUROLOGIC: Cranial nerves are intact. Sensory exam is intact. Mental status is at baseline. Unable to test gait and cerebral function at this time. Deep tendon reflexes at the knee jerks are 2+ and Babinski is down. LABORATORY DATA: On admission as mentioned in history of present illness. He has elevated hemoglobin and hematocrit. His electrolytes are out of balance. He is acidotic by ABG. ASSESSMENT: 1. Diabetic ketoacidosis. 2. Insulin-dependent type 1 diabetic, regularly noncompliant. 3. Bipolar disorder, currently stable. PLAN: Plan will be IV fluid rehydration, insulin per sliding scale with drip as needed. Antiemetics to control nausea and vomiting. Serial re-evaluation. Job ID: [id number] [facility]
[2018-04-24] MEDS: Insulin Regular 300 UNITS/3 ML VIAL SC PRN (17:14)
[2018-04-24] MEDS: Sodium Chloride 0.9% 1,000 ML IV SCH (17:57)
[2018-04-25] MEDS: Sodium Chloride 0.9% 1,000 ML IV SCH ×2 (00:44→08:38)
[2018-04-25 05:17] LABS: #Basophils 0.1 thou/uL (0.0-0.2); #Eosinphils 0.1 thou/uL (0.0-0.7); #Lymphocytes 3.2 thou/uL (1.20-3.40); #Monocytes 0.6 thou/uL (0.11-0.59); #Neutrophils 2.6 thou/uL (1.40-6.50); %Eosinophils 2.1 % (0.0-10.0); %Lymphocytes 48.3 % (21.0-51.0); %Monocytes 8.4 % (0.0-10.0); %Neutrophils 40.3 % (42.0-75.0); Hemoglobin 13.9 g/dL (14.0-18.0); Mean Corpuscular HGB CONC 35.6 g/dL (32.0-36.0); Mean Corpuscular Hemoglobin 30.1 pg (27.0-31.0); Mean Corpuscular Volume 84.6 fL (78.0-98.0); Mean Platelet Volume 7.3 fL (7.4-10.4); Platelet Count 276 thou/uL (130-400); RBC Distribution Width 10.8 % (11.5-14.5); Red Blood Cell (RBC) Count 4.62 mill/uL (4.70-6.10); White Blood Cell (WBC) Count 6.5 thou/uL (4.8-10.8)
[2018-04-25 05:31] LABS: Anion Gap 12 mmol/L (10-20); BUN (Urea Nitrogen) 4 mg/dL (8.9-20.6); Calc. Creatinine Clearance 164 mL/min (70-130); Calcium 8.2 mg/dL (7.8-10.44); Carbon Dioxide 20 mmol/L (22-29); Chloride 107 mmol/L (98-107); Estimated GFR-MDRD Greater than 90; Glucose 132 mg/dL (70-105); Sodium 136 mmol/L (136-145)
[2018-04-25 05:32] LABS: Potassium 2.9 mmol/L (3.5-5.1)
[2018-04-25] MEDS ORDERED: HYDROcodone/Acetaminophen 5/325 mg Tablet PO PRN (08:05)
[2018-04-25] MEDS: Potassium Chloride 20 MEQ TAB PO SCH ×2 (08:38→12:14)
[2018-04-25] MEDS: Pantoprazole 40 MG VIAL IVP SCH (08:38)
[2018-04-25] MEDS ORDERED: Insulin Glargine 34 UNITS in Pre-Filled Syringe 1 EACH SC SCH (09:00)
[2018-04-25 10:56] VITALS: TEMP 98.7
[2018-04-25] MEDS: Insulin Regular 300 UNITS/3 ML VIAL SC PRN (12:11)
[2018-04-25 15:04] LABS: Anion Gap 13 mmol/L (10-20); BUN (Urea Nitrogen) 4 mg/dL (8.9-20.6); Calc. Creatinine Clearance 155 mL/min (70-130); Calcium 9.2 mg/dL (7.8-10.44); Carbon Dioxide 21 mmol/L (22-29); Chloride 104 mmol/L (98-107); Estimated GFR-MDRD Greater than 90; Glucose 178 mg/dL (70-105); Potassium 3.4 mmol/L (3.5-5.1); Sodium 135 mmol/L (136-145)
== END 2018-04-25 17:22 | disposition home or self-care (01) | DRG 639 ==
LOC: ERS 17:40 → IMCU/EMU 22:35
PROVIDERS: ADMIT Specialist; ATTEND Specialist
DX: E10.10 Type 1 diabetes mellitus with ketoacidosis without coma (principal); F31.9 Bipolar disorder, unspecified; E86.0 Dehydration; E87.6 Hypokalemia; Z91.19 Patient's noncompliance with other medical treatment and regimen
CPT/HCPCS: 36415; 36416; 80048; 80053; 80178; 82010; 82330; 82803; 83690; 83735; 84100; 85025; 86677; 87804; 96361; 96365; 96374; 96375; C9113; J1815; J1825; J2405; J7050

== ENCOUNTER 2018-05-14 11:31 | Inpatient (IN) | payer BC ==
[~2018-05-14 11:31] MED LIST: Heparin 1,000 UNITS/ML VIAL ONE; ISOVUE-370 76%-LOCM 1 ML ONE
[2018-05-14 12:56] LABS: #Basophils 0.1 thou/uL (0.0-0.2); #Eosinphils 0.2 thou/uL (0.0-0.7); #Lymphocytes 3.2 thou/uL (1.20-3.40); #Monocytes 0.6 thou/uL (0.11-0.59); #Neutrophils 4.6 thou/uL (1.40-6.50); %Basophils 1.3 % (0.0-1.0); %Eosinophils 2.3 % (0.0-10.0); %Lymphocytes 36.5 % (21.0-51.0); %Monocytes 7.1 % (0.0-10.0); %Neutrophils 52.8 % (42.0-75.0); Hemoglobin 15.6 g/dL (14.0-18.0); Mean Corpuscular HGB CONC 33.8 g/dL (32.0-36.0); Mean Corpuscular Hemoglobin 30.1 pg (27.0-31.0); Mean Platelet Volume 7.6 fL (7.4-10.4); Platelet Count 444 thou/uL (130-400); RBC Distribution Width 11.3 % (11.5-14.5); Red Blood Cell (RBC) Count 5.19 mill/uL (4.70-6.10); White Blood Cell (WBC) Count 8.7 thou/uL (4.8-10.8)
[2018-05-14 13:03] LABS: Bilirubin Negative (Negative); Blood, Urine Negative (Negative); Clarity CLEAR (Clear); Glucose, Urine (Dipstick) >=1000 mg/dL (Negative); Leukocyte Negative (Negative); Nitrite Negative (Negative); Protein, Urine (Dipstick) Negative (Neg-Trace); Specific Gravity, Urine 1.029 (1.002-1.036); Urobilinogen 0.2 mg/dL (0.2-1.0)
[2018-05-14 13:11] LABS: ALT (SGPT) 11 U/L (8-55); AST (SGOT) 11 U/L (5-34); Albumin 4.1 g/dL (3.5-5.0); Alkaline Phosphatase 109 U/L (40-150); Anion Gap 15 mmol/L (10-20); BUN (Urea Nitrogen) 15 mg/dL (8.9-20.6); Bilirubin, Total 0.4 mg/dL (0.2-1.2); Calc. Creatinine Clearance 0 mL/min (70-130); Calcium 10.3 mg/dL (7.8-10.44); Carbon Dioxide 26 mmol/L (22-29); Chloride 103 mmol/L (98-107); Estimated GFR-MDRD Greater than 90; Globulin 3.3 g/dL (2.4-3.5); Glucose 209 mg/dL (70-105); Protein, Total 7.4 g/dL (6.0-8.3); Sodium 140 mmol/L (136-145)
--- NOTE | 2018-05-14 14:36 | CT ---
CT ABDOMEN AND PELVIS WITH IV CONTRAST: Date: 05/14/18 HISTORY: Rectal pain. FINDINGS: Lung bases are clear. The liver, spleen, kidneys, adrenal glands, and pancreas have a normal CT appea yony. No enlarged lymph nodes or free fluid are apparent. Urinary bladder is incompletely distended. At the far inferior margin of the prostate gland, an oval, well circumscribed fluid density mass suraj ures up to 2.2 cm greatest diameter and is centered just to the right of midline. IMPRESSION: 1. Oval 2.2 cm fluid density mass at the right inferior margin of the prostate gland. Considerations would include prostate abscess and urethral anomaly such as diverticulum. 2. No other significant abnormalities of the abdomen/pelvis are apparent. POS: DIANNA
[2018-05-14] MEDS ORDERED: Morphine 4 MG/ML VIAL ONE (15:08)
[2018-05-14] MEDS ORDERED: Senokot S 8.6-50 MG TAB PO PRN ×2 (15:19)
[2018-05-14] MEDS ORDERED: Ondansetron PF 4 MG/2 ML Vial IVP PRN ×2 (15:19)
[2018-05-14] MEDS ORDERED: cloNIDine 0.1 MG TAB PO PRN (15:19)
[2018-05-14] MEDS ORDERED: HYDROcodone/Acetaminophen 5/325 mg Tablet PO PRN (15:19)
[2018-05-14] MEDS ORDERED: Dextrose 5% in Water 1,000 ML IV PRN (15:19)
[2018-05-14] MEDS ORDERED: Diabetic Tussin 200 MG/10 ML UDCUP PO PRN (15:19)
[2018-05-14] MEDS ORDERED: Bisacodyl 5 MG TAB PO PRN (15:19)
[2018-05-14] MEDS ORDERED: Benzonatate 100 MG CAP PO PRN (15:19)
[2018-05-14] MEDS ORDERED: hydrALAZINE 20 MG/ML VIAL SLOW IVP PRN (15:19)
[2018-05-14] MEDS ORDERED: Dextrose 50% Abboject 50 ML SYRINGE SLOW IVP PRN (15:19)
[2018-05-14] MEDS ORDERED: HumaLOG 300 UNITS/3 ML VIAL SC PRN (15:19)
[2018-05-14] MEDS ORDERED: Acetaminophen 325 MG TAB PO PRN (15:19)
[2018-05-14] MEDS ORDERED: Sodium Chloride 0.9% 1,000 ML IV SCH ×3 (15:30→15:45)
[2018-05-14] MEDS ORDERED: Phenazopyridine HCl 97.5 MG TABLET PO PRN (15:38)
[2018-05-14 16:22] LABS: PTT 30.5 SEC (22.9-36.1); Prothrombin Time 13.1 SEC (12.0-14.7)
[2018-05-14 16:26] LABS: HIV (1/2) Antibody/Antigen Non-Reactive (NonReactive); HIV 1/2 INDEX 0.09 S/CO (<1.00)
--- NOTE | 2018-05-14 16:33 | CON ---
DATE OF CONSULTATION: REASON FOR CONSULT: Rule out prostatic abscess. PRIMARY CARE PHYSICIAN: Alejandro Guy MD. HISTORY OF PRESENT ILLNESS: Bry is a 22-year-old male accompanied by his father with approximately 1-2-week history of rectal pain. The patient saw an Urgent Care Center, and was diagnosed with presumed proctitis and was provided doxycycline. He returned to Urgent Care for continuing discomfort, no labs were obtained except CBC demonstrating mild leukocytosis of 13. Subsequently, he was seen by his primary care, Dr. Guy, and provided Flagyl for presumed proctitis, advised to continue doxycycline, and has also been inserting steroid suppository due to rectal pain. Upon further history, he did develop concomitant hesitancy, slow stream, however , denies sensation of incomplete void. Denies prior history of UTI. Has had regular bowel movements. He has been previously sexually active. Denies history of sexually transmitted diseases. He denies history of fever, chills, nausea, vomiting, or significant pain. However, he has had restless nights over the last few days due to significant intractable rectal discomfort. CT of the abdomen and pelvis with contrast was obtained by the ER staff demonstrating a 2.2 cm fluid density in the inferior margin of the prostate with differential diagnosis of prostatic abscess versus urethral diverticulum. There is no evidence of hydronephrosis or renal calculi. Given the above findings, urologic consultation was obtained. PAST MEDICAL HISTORY: Multiple hospitalizations due to DKA due to type 1 diabetes, history of medical noncompliance. SURGICAL HISTORY: Negative. PSYCHIATRIC HISTORY: Bipolar with previous hospitalization of bipolar. SOCIAL HISTORY: Lives with his parents. 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 He has had history of multiple polysubstance abuse including marijuana. HIV parameter has been obtained. MEDICATIONS: Include sliding scale insulin, supervised by Dr. Tucker. REVIEW OF SYSTEMS: Ten-point review of systems as above, otherwise noncontributory. PHYSICAL EXAMINATION: VITAL SIGNS: His vital signs are stable, 128/85, 83, 16, 98. Pain rated at 5. GENERAL: The patient appears quite anxious. Father at bedside. HEENT: Grossly unremarkable. HEART: Regular rate. LUNGS: Clear. ABDOMEN: Soft. No rigidity. No rebound. No suprapubic tenderness is appreciated. I attempted a gentle MICHAEL, however, he is extremely anxious, therefore I did not pursue. : Demonstrates circumcision incision with a dorsal penile adhesion causing curvature of the penis due to the adhesion. Meatus is grossly unremarkable. Testes are descended with no evidence of intratesticular mass. I did gently pass an 18-[place] Myers catheter, which passed without difficulty. Clear yellow urine was obtained of 300 mL. However, this is not a true postvoid residual per se because as I did not ask the patient to void. EXTREMITIES: No cyanosis, clubbing, or edema. PERTINENT LABORATORY DATA: On May 10, white count of 13, currently 8, hemoglobin of 15, platelets 444. Creatinine 0.9, blood sugar 225. Hemoglobin A1c is 4.6, dated November 2017. LFTs are grossly unremarkable. UA demonstrates greater than 1000 glucose. There is no previous urine culture for me to review. Urine culture and blood culture were obtained by the emergency room. No antibiotics provided thus far. CT of the abdomen and pelvis with contrast, which I have reviewed with radiologist, demonstrating no evidence of hydronephrosis. Bladder is not significantly distended, appears decompressed. There is a 2.2 cm x 2.5 cm in craniocaudal dimension, well circumcised density right midline of the inferior aspect of the prostate. Differential diagnosis is prostate abscess versus urethral diverticulum. IMPRESSION: 1. Mr. White is a 22-year-old male with history of type 1 diabetes. 2. Multiple admissions for diabetic ketoacidosis. 3. History of substance abuse, daily marijuana. 4. History of bipolar. 5. Presents with 1-2 week history of rectal pain intractable, previously treated with doxycycline and Flagyl for presumed proctitis. 6. Admitted for worsening discomfort with lower urinary tract symptoms. CT demonstrating possibility of prostatic abscess. I did pass a Myers catheter gently at bedside, which passed without difficulty, therefore he is ruled out for obvious urethral stricture of concern. I advised regarding exam under anesthesia TUR of prostate to unroof possible abscess versus cyst as it is causing significant discomfort. The risks and complications of the procedure including, but not limited to, bleeding, pain, infection, PE, DVT, sepsis, stricture formation, secondary procedure were reviewed with them in detail. As he ate today and remains hemodynamically stable, will schedule surgery tomorrow morning. NPO after midnight. Continue sliding scale insulin. Absolutely nothing per rectum is advised. Job ID: [id number] [facility]
[2018-05-14] MEDS: HYDROcodone/Acetaminophen 5/325 mg Tablet PO PRN ×2 (16:36→20:37)
[2018-05-14 16:42] LABS: HBCM Index 0.06 S/CO (0-0.79); HBSAg Index 0.22 S/CO (0-0.99); Hep A IgM AB Non-Reactive (NonReactive); Hep A IgM S/CO 0.17 S/CO (0-0.79); Hep B Surf Ag Non-Reactive S/CO (NonReactive); Hep C IgG Ab Non-Reactive (NonReactive); Hep C Index 0.08 S/CO (0-0.79); Hepatitis B Core IgM Abs Non-Reactive (NonReactive)
--- NOTE | 2018-05-14 17:15 | HP ---
PRIMARY CARE PHYSICIAN: Alejandro Guy MD CHIEF COMPLAINT: Rectal pain. HISTORY OF PRESENTING ILLNESS: Mr. White is a 22-year-old male with known history of diabetes type 1, as well as bipolar disorder, who presented to the ER with above-mentioned complaint. History is mainly obtained by the patient himself and augmented by his father present in the room. According to the patient, he has been having some rectal pain for about a week. Initially, he was seen by PCP and was started on doxycycline, but when the pain did not get better. He presented to the urgent care next two or three days later. He was now started on Flagyl as well as a hemorrhoid cream and was sent home. His pain did not get better, and he was scheduled to undergo a CT scan of the abdomen and pelvis as an outpatient today. Because of the office closures, he presented to the hospital and stated to get this done. In the emergency room, he was hemodynamically stable. His lab work was unremarkable. He underwent a CT scan which showed possible prostate abscess at the right inferior margin versus urethral anomaly such as diverticulum. He was found to have significant glucosuria as well. Because of possible prostate abscess, he is now being admitted to medical team with Urology consultation. He denies any fever, chills. He denies any constipation or diarrhea. He denies any blood in his stools. Denies any difficulty with urination, but he is having urinary hesitancy because whenever he strains, he states his rectal pain worsens. He was seen by urology, Dr. Pabon, in the emergency room and a catheter was placed in but it had to be removed subsequently because of significant discomfort. He is scheduled to undergo ureteroscopic procedure in the morning in the OR. PAST MEDICAL HISTORY: 1. Diabetes mellitus type 1. 2. History of multiple hospitalization for diabetic ketoacidosis. 3. History of bipolar disorder. PAST SURGICAL HISTORY: None. PSYCHIATRIC HISTORY: 1. Bipolar disorder. 2. History of inpatient psychiatric admission. SOCIAL HISTORY: He currently lives at home with family. Abuses marijuana. No alcohol or smoking abuse. CURRENT HOME MEDICATION: Tresiba 34 units in the morning and Humalog insulin sliding scale. ALLERGIES: NO KNOWN MEDICATION ALLERGIES. REVIEW OF SYSTEMS: A 12-point review of system is done it is negative except for those mentioned in the history and physical. LABORATORY DATA: His CBC, serum chemistries, coagulation studies are unremarkable. Blood sugar 209. Urinalysis showed greater than 1000 sugar. His HIV one and two antigen and antibody are negative. CT scan of the abdomen and pelvis as above as per HPI. PHYSICAL EXAMINATION: VITAL SIGNS: Upon presentation, blood pressure 128/85, pulse of 83, respirations 16, saturating 100% on room air, temperature 98. GENERAL: No acute distress. Awake, alert, and oriented x3. HEENT: Mucous membrane moist and pink. No oropharyngeal exudate or erythema. Head is normocephalic, atraumatic. Pupils are equal and reactive to light and accommodation. Extraocular movement intact. NECK: Supple without any lymphadenopathy, JVD, or bruit. CHEST: Clear to auscultation without any wheezing, rales, or rhonchi. HEART: Rate and rhythm are regular without any murmurs, rubs, or gallops. ABDOMEN: Soft, nontender, nondistended. Positive bowel sounds. EXTREMITIES: Free of any cyanosis, clubbing, or edema. NEUROLOGICAL: Examination is nonfocal. GENITOURINARY: Examination is deferred as he has been examined by the ER physician as well as urologist and he is having some discomfort. PSYCHIATRIC: Normal affect. IMPRESSION AND PLAN: 1. Prostatic abscess. The patient will be empirically treated with IV antibiotics and is scheduled to undergo urethroscopy tomorrow morning. We appreciate Urology assistance with this. He is hemodynamically stable without any evidence of sepsis. Start him on gentle IV fluid. Blood cultures have been obtained and we will follow the results. 2. Diabetes mellitus type 1. The patient has already taken his Tresiba this morning, so we will be careful with hypoglycemia risk in this patient. He will be started on D5 half-normal saline once he is being made n.p.o. in anticipation for the procedure. Insulin sliding scale will also be ordered. 3. Bipolar disorder, currently seems stable. Restart home medications once confirmed. It does not seem like he is on any scheduled medication. 4. Deep venous thrombosis and gastrointestinal prophylaxis once the surgery is done. DISPOSITION: Mr. White currently being admitted on medical floor for prostatic abscess. Estimated length of stay at this time is at least 2 to 3 midnights. Further management will depend upon his clinical course. Job ID: [id number]
[2018-05-14 17:19] VITALS: BMI 26.0
[2018-05-14] MEDS: Piperacillin/Tazobactam 3.375 GM in Sodium Chloride 0.9% 100 ML IVPB SCH ×2 (18:26→23:53)
[2018-05-14] MEDS: HumaLOG 300 UNITS/3 ML VIAL SC PRN (18:31)
[2018-05-14] MEDS: Famotidine 20 MG TAB PO SCH ×2 (20:26→20:34)
[2018-05-14] MEDS: Dextrose 5 %-0.45 % NaCl 1,000 ML IV SCH (23:53)
[2018-05-15] MEDS: Piperacillin/Tazobactam 3.375 GM in Sodium Chloride 0.9% 100 ML IVPB SCH ×4 (05:19→23:57)
[2018-05-15] MEDS: HYDROcodone/Acetaminophen 5/325 mg Tablet PO PRN (05:24)
[2018-05-15 06:57] LABS: #Basophils 0.1 thou/uL (0.0-0.2); #Eosinphils 0.2 thou/uL (0.0-0.7); #Lymphocytes 3.6 thou/uL (1.20-3.40); #Monocytes 0.9 thou/uL (0.11-0.59); #Neutrophils 6.5 thou/uL (1.40-6.50); %Eosinophils 2.2 % (0.0-10.0); %Lymphocytes 31.6 % (21.0-51.0); %Monocytes 7.9 % (0.0-10.0); %Neutrophils 57.4 % (42.0-75.0); Hemoglobin 16.1 g/dL (14.0-18.0); Mean Corpuscular HGB CONC 32.8 g/dL (32.0-36.0); Mean Corpuscular Hemoglobin 29.7 pg (27.0-31.0); Mean Corpuscular Volume 90.6 fL (78.0-98.0); Mean Platelet Volume 7.5 fL (7.4-10.4); Platelet Count 525 thou/uL (130-400); RBC Distribution Width 11.5 % (11.5-14.5); Red Blood Cell (RBC) Count 5.41 mill/uL (4.70-6.10); White Blood Cell (WBC) Count 11.3 thou/uL (4.8-10.8)
[2018-05-15 07:10] LABS: Anion Gap 16 mmol/L (10-20); BUN (Urea Nitrogen) 11 mg/dL (8.9-20.6); Calc. Creatinine Clearance 164 mL/min (70-130); Calcium 9.8 mg/dL (7.8-10.44); Carbon Dioxide 25 mmol/L (22-29); Chloride 105 mmol/L (98-107); Estimated GFR-MDRD Greater than 90; Glucose 98 mg/dL (70-105); Potassium 3.6 mmol/L (3.5-5.1); Sodium 142 mmol/L (136-145)
[2018-05-15] MEDS ORDERED: Fentanyl 100 MCG/2 ML VIAL ONE (07:37)
[2018-05-15] MEDS ORDERED: Enoxaparin Sodium 40 MG/0.4 ML SYRINGE SC SCH (09:00)
[2018-05-15] MEDS ORDERED: Iothalamate Meglumine 60% 50 ML VIAL FS ONE ×2 (09:56→10:01)
[2018-05-15] MEDS ORDERED: Piperacillin/Tazobactam 3.375 GM VIAL ONE (11:54)
[2018-05-15] MEDS ORDERED: Promethazine HCl 25 MG/ML VIAL IM PRN (12:17)
[2018-05-15] MEDS ORDERED: Promethazine HCl 25 MG/ML VIAL SLOW IVP PRN (12:17)
[2018-05-15] MEDS ORDERED: PACU-Morphine 4MG/ML VIAL SLOW IVP PRN (12:17)
[2018-05-15] MEDS ORDERED: Ondansetron HCl/PF 4 MG/2 ML Vial IVP PRN (12:17)
[2018-05-15] MEDS ORDERED: HYDROmorphone 2 MG/ML VIAL SLOW IVP PRN (12:17)
[2018-05-15] MEDS ORDERED: Bacitracin Zinc Ointment 30 gm TUBE ONE (12:36)
[2018-05-15] MEDS ORDERED: Meperidine HCl/PF 25 MG/ML VIAL ONE (13:04)
[2018-05-15] MEDS ORDERED: Phenazopyridine HCl 97.5 MG TABLET PO PRN (13:06)
[2018-05-15] MEDS ORDERED: Hyoscyamine Sulfate SL 0.125 mg Tablet PO PRN (13:10)
[2018-05-15] MEDS ORDERED: HYDROmorphone 2 MG/ML VIAL ONE (13:20)
[2018-05-15] MEDS ORDERED: Hyoscyamine Sulfate SL 0.125 mg Tablet ONE (13:26)
[2018-05-15] MEDS ORDERED: Promethazine HCl 25 MG/ML VIAL ONE (13:32)
--- NOTE | 2018-05-15 14:20 | OP ---
DATE OF PROCEDURE: 05/15/2018 PREOPERATIVE DIAGNOSES: 1. A 22-year-old male with intractable perirectal pain. 2. CT demonstrating prostatic abscess. 3. History of type 1 diabetes. 4. History of medical noncompliance. 5 history of penile curvature 6 status post circumcision, dorsal penile adhesion band 7 history of bipolar POSTOPERATIVE DIAGNOSES: 1. A 22-year-old male with intractable perirectal pain. 2. CT demonstrating prostatic abscess. 3. History of type 1 diabetes. 4. History of medical noncompliance. 5. History of penile curvature 6 status post circumcision dorsal penile adhesive band 7History of bipolar PROCEDURES PERFORMED: Diagnostic cystoscopy, limited TUR of prostate, transrectal ultrasound, needle aspiration of prostatic abscess, dilation of bulbar stricture, suprapubic tube placement 16-[place] 10 mL [place] tip, release of penile adhesion, 16-[place] tip Myers catheter placement over a guidewire, cystogram ANESTHESIA: General. ESTIMATED BLOOD LOSS: Minimal. IV FLUIDS: 1500 mL. SPECIMENS: 1. TUR of prostate, right lobe. 2. Penile skin tag. 3. Transrectal needle aspiration of prostatic abscess fluid sent for anaerobic and aerobic culture. INTRAOPERATIVE CONSULT: Dr. Beach, GI. Proctoscopy to rule out rectal injury, negative. INTRAOPERATIVE FINDINGS: 1. Bulbar stricture wide caliber, with tortuosity of the urethra 2. Bilobar coapting lateral lobes with no bulging of the prostatic urethra per se. 3. Bladder grossly unremarkable with UOs in normal orthotopic position. 4. Transrectal ultrasound demonstrating prostatic abscess located in the right apical prostate extending to the level of the membranous urethra on sagittal plane. Prostatic abscess measuring 2 x 3 cm craniocaudal dimension on CT DRAINS: 1. A 16-[place] Island[place] 10 mL Councill tip suprapubic tube to gravity. 2. A 16-[place] Island[place] 10 mL [place] tip urethral Myers catheter plugged and secured. INDICATIONS FOR PROCEDURE AND HISTORY: Mr. White is a 22-year-old male with history of type 1 diabetes. He has been admitted on multiple occasions for type 1 diabetes, DKA. The patient with history of substance abuse, daily marijuana use. He presented with history of 1-2 weeks of intractable perirectal pain. He was seen by urgent care, was provided doxycycline, subsequently seen by his primary care provider, doxycycline and yl has been on it for the last few days. He was also provided a steroid suppository perirectal for presumed proctitis. He has an upcoming appointment with GI regarding intractable proctitis. He presented to the emergency room last night due to intractable discomfort. There was a history of associated urinary hesitancy, slow stream. CT demonstrated a prostatic abscess at the location of the inferior aspect of the prostate extending inferiorly, no evidence of hydronephrosis or renal calculi. MICHAEL was difficult due to significant discomfort. Therefore, I did not pursue, I did pass a 16-[place] Myers catheter and initial consult to rule out occult high-grade stricture which passed without difficulty and subsequently removed with 300 mL of clear yellow urine. The patient presents for exam under anesthesia, TUR of prostatic abscess, suprapubic tube, penile adhesion. I did discuss with the patient regarding options of treatment including observation, transurethral drainage, given size TUR would be more effective. As there is a 2 x 3cm abscess, given the history of diabetes and significant glucosuria, exam under anesthesia and unroofing of the prostatic abscess. Moreover, needles available for transrectal drainage suboptimal given small bore. Extensive discussion occurred in preop. The patient had significant issues regarding Myers catheter that was placed last night and subsequently removed. He was demanding that the surgery be performed without indwelling urethral Myers catheter postop. I discussed with the patient regarding indications of postop indwelling urethral Myers catheter placement to allow drainage. I also informed regarding indications of suprapubic tube. He became agitated in preop, at times using profanities to swear, hostile. Nursing staff available, witnessed. I informed the patient that he may obtain a 2nd opinion if he desires to do so, however, progression of prostatic abscess resulting in life-threatening sepsis was reviewed. He subsequently apologized for swearing at medical staff. Therefore , we agreed to proceed with surgery as planned with full understanding that he will likely require an indwelling urethral Myers catheter as he presents with a prostatic abscess that requires attention, as I cannot rule out occult urethral disease that requires indwelling Myers catheter. I gave him options to seek a second opinion, observed with antibiotics, or proceed with exam under anesthesia. More efficacious treatment with transurethral unroofing versus needle aspiration reviewed. He subsequently agreed for exam under anesthesia. Risks and complications of the procedure were reviewed with him in detail including, but not limited to, bleeding, pain, infection, urosepsis, secondary procedure, injury to adjacent organs, PE, DVT. Questions encouraged to his satisfaction. Extensive consultation was obtained preoperatively, nursing staff present as he was verbally abusive hostile. DESCRIPTION OF PROCEDURE: After an informed consent was signed, the patient was taken to the operating room, placed in a dorsal lithotomy position with the genital area prepped and draped in the usual surgical sterile fashion. Digital rectal exam demonstrated no significant fluctuance per se. At this time, he had already received his broad-spectrum antibiotics. Bilateral RAJI hose and SCDs were placed. A 21-[place] cystoscope was utilized for cystoscopy. Upon entering the bulbar urethra, there was a wide caliber bulbar stricture, in which I was able to pass without difficulty. The prostatic urethra was entered demonstrating supra-verumontanal length that was quite short as expected in a 22-year-old. There was no evidence of bladder neck contracture and bladder was entered without difficulty. His urethra was tortuous, occult bulbar stricture, however caliber wide enough to accommodate 22 [place] Island[place] without significant issues. The UOs were identified in normal anatomical location with no bladder stones or lesion of concern. At this time, his penile meatus was calibrated and dilatated to accommodate a transurethral resectoscope. His urethral meatus was calibrated with ease to 18/20-[place] Islander. Subsequently dilated to 30-[place] Islander. A 26-[place] Island[place] resectoscope with a visual obturator was passed. We bypassed the area of the bulbar stricture passively dilating this uneventfully. The prostatic urethra was entered. Prior to performing the transurethral resection of the prostate to unroof the prostatic abscess, we did perform a prostate ultrasound to confirm the location. A transrectal ultrasound was placed without difficulty and the abscess cavity was visualized. As his prostatic urethra is quite short, I did try to unroof his prostatic urethral abscess. However, the location appeared to be near apex of the prostate. I did not feel comfortable resecting his apical prostate as it is near his sphincter. His bladder neck was spared, in addition area of verumontanum kept at a harm's way in the resection in attempt to unroof the prostatic abscess. However, there was undermining at the bladder neck, due to very short/small prostatic urethra. Therefore, I did not pursue further transurethral resection approach to gain access to his prostatic abscess. cystogram was performed demonstrated no evidence of extravasation of contrast. Cystogram was performed by placing a wire into the bladder and an 18-[place] Myers catheter placed and contrast was injected, which filled without significant issues with no evidence of extravasation of contrast. Resectoscope gyrus was utilized to obtain good hemostasis of the prostatic urethral resection. As I could not safely approach his prostatic abscess safely transurethrally, given the location near his membranous apical prostate, decision was made to perform transrectal ultrasound and attempted needle aspiration. Unfortunately, the only needle available long enough to reach is 22-gauge. We exhausted all efforts to obtain a larger bore needle that would to officially drain the abscess. As he we did not have a choice except a 22- gauge needle, we were steadfast and aspirated. Although was difficult to aspirate, we were able to decompress the abscess cavity. Approximately 8 mL of abscess was removed and near resolution of the abscess cavity was seen on ultrasound. There was a small amount of blood on the digital rectal exam. Therefore, I did have GI come in to ensure there was no inadvertent rectal injury. Flexible proctoscopy was performed by Dr. Beach, which he will dictate. There was no evidence of injury. At this time, we rescoped him, which demonstrated good hemostasis of the prostatic urethra. Good dilatation of his bulbar stricture was noted. With the cystoscope distending the bladder, an ultrasound probe was placed confirming bladder distention with no evidence of bowel impeding our suprapubic tube. A 22-gauge spinal needle was placed two fingerbreadths above the pubic symphysis. Needle aspiration demonstrates fluid consistent with cystoscopy fluid. A 16-[place] Island[place] Cook Rutner suprapubic tube trocar was placed. A 0.35 Superstiff wire was placed into the bladder and using a [employer] balloon dilator, we dilated his trach. A 16-[place] tip Myers catheter was placed for suprapubic tube and secured using 3-0 nylon. 10 mL insufflated in the balloon. I did place a 16-[place] urethral Myers catheter via a guidewire assist as he had underwent TUR with a bulbar stricture dilatation. This was inflated with 10 mL and clamped as the suprapubic tube is to gravity. I would prefer his urethral Myers catheter stay for few days as there was a treatment of urethral stricture. Cultures are sent. He will be covered with Zosyn and vanc for now. Continue sliding scale insulin. Job ID: [id number] [facility]
[2018-05-15] MEDS: Sodium Chloride 0.9% 1,000 ML IV SCH (14:30)
[2018-05-15] MEDS: Famotidine 20 MG TAB PO SCH ×2 (14:35→20:06)
[2018-05-15] MEDS ORDERED: Dexamethasone 20 MG/5 ML VIAL ONE (14:35)
[2018-05-15] MEDS ORDERED: Ketorolac Tromethamine 30 MG/ML VIAL ONE (14:35)
[2018-05-15] MEDS ORDERED: Lidocaine 1% PF 5 ML VIAL ONE (14:35)
[2018-05-15] MEDS ORDERED: Rocuronium Bromide 10 MG/ML (10ML VIAL) ONE (14:35)
[2018-05-15] MEDS ORDERED: Succinylcholine Chloride 20 MG/ML 10 ml SYRINGE FS ONE (14:35)
[2018-05-15] MEDS ORDERED: PROPOFOL 200 MG/20 ML VIAL ONE (14:35)
[2018-05-15] MEDS ORDERED: Ondansetron PF 4 MG/2 ML Vial ONE (14:35)
[2018-05-15] MEDS ORDERED: HYDROcodone/Acetaminophen 10/325 mg Tablet PO PRN (14:36)
[2018-05-15] MEDS ORDERED: Zolpidem Tartrate 5 MG TAB PO PRN (14:53)
[2018-05-15] MEDS ORDERED: Meperidine HCl/PF 25 MG/ML VIAL SLOW IVP PRN (15:09)
--- NOTE | 2018-05-15 15:12 | PDOC.PN ---
- Subjective Encounter Start Date: 05/15/18 Encounter Start Time: 15:10 Subjective: feels pain at hernandez site -: s/p limited TURp,perirectal abscess drainge - Objective MAR Reviewed: Yes Vital Signs & Weight: Vital Signs (12 hours) Temp Pulse Resp BP 05/15/18 04:00 98.2 F 82 16 126/74 Weight Weight 176 lb 5.917 oz Result Diagrams: 05/15/18 06:17 05/15/18 06:17 Additional Labs: Accuchecks 05/15/18 05/14/18 05/14/18 05:21 19:53 17:41 POC Glucose 112 H 213 H 245 H Microbiology 05/15/18 11:12 Rectum - Fluid Bacterial Culture - Preliminary 05/15/18 11:02 Prosthesis - Abscess Bacterial Culture - Preliminary 05/14/18 15:52 Venous blood - Left Arm Blood Culture - Preliminary Specimen has been received and culture in progress. No Growth to date. 05/14/18 15:48 Venous blood - Right Hand Blood Culture - Preliminary Specimen has been received and culture in progress. No Growth to date. 05/14/18 12:50 Urine voided Urine Culture - Preliminary NO GROWTH AT 12 HOURS Laboratory Tests 05/14/18 05/14/18 12:18 12:18 Hepatitis A IgM Ab Non-Reactive Hep Bs Antigen Non-Reactive Hep B Core IgM Ab Non-Reactive Hepatitis C Antibody Non-Reactive HIV 1&2 Antigen & Ab Non-Reactive Phys Exam - Physical Examination Constitutional: NAD HEENT: PERRLA, moist MMs, sclera anicteric, oral pharynx no lesions Neck: no nodes, no JVD, supple, full ROM Respiratory: no wheezing, no rales, no rhonchi, clear to auscultation bilateral Cardiovascular: RRR, no significant murmur, no rub Gastrointestinal: soft, non-tender, no distention, positive bowel sounds Musculoskeletal: no edema, pulses present Neurological: non-focal, normal sensation, moves all 4 limbs Psychiatric: normal affect, A&O x 3 Skin: no rash Dx/Plan (1) Prostate abscess Code(s): N41.2 - ABSCESS OF PROSTATE Status: Acute Comment: s/p needle drainage 05/15/18 (2) Bipolar 1 disorder Code(s): F31.9 - BIPOLAR DISORDER, UNSPECIFIED Status: Chronic (3) Diabetes mellitus type 1 Status: Chronic - Plan DVT proph w/SCDs pain meds. IV ABx.Hernandez in place -: appreciate urology input -: encourage PO intake.hold tresiba untill adequate.cont ISS,accuchecks -: check [place] levels.restart home meds. -: am labs.high risk for DKA.cont Insulin * .will add small dose lantus for basal coverage to prvent DKA. * Dc lantus when starting back Tresiba Review of Systems - Review of Systems Constitutional: malaise Other: penile pain - Medications/Allergies Allergies/Adverse Reactions: Allergies Allergy/AdvReac Type Severity Reaction Status Date / Time No Known Allergies Allergy Verified 05/14/18 17:17 Medications: Current Medications Acetaminophen (Tylenol) 650 mg PO Q4H PRN PRN Reason: Headache/Fever/Mild Pain (1-3) Hydrocodone Bitart/Acetaminophen ([place] 10/325) 1 tab PO Q4H PRN PRN Reason: Moderate Pain (4-6) Hydrocodone Bitart/Acetaminophen ([place] 10/325) 2 tab PO Q4H PRN PRN Reason: Severe Pain (7-10) Benzonatate (Tessalon) 100 mg PO Q6H PRN PRN Reason: Cough Clonidine (Catapres) 0.1 mg PO Q4H PRN PRN Reason: SBP > 160____ Dextrose/Water (Dextrose 50%) 25 gm SLOW IVP PRN PRN PRN Reason: Hypoglycemia Famotidine (Pepcid) 20 mg PO BID DEREJE Last Admin: 05/15/18 14:35 Dose: Not Given Fentanyl (Pacu-Sublimaze) 50 mcg SLOW IVP Q10MIN PRN PRN Reason: Moderate to Severe Pain (6-10) Stop: 05/15/18 15:18 Glucagon (Glucagon) 1 mg IM PRN PRN PRN Reason: Hypoglycemia Guaifenesin (Robitussin Sf) 200 mg PO Q4H PRN PRN Reason: Cough Hydralazine HCl (Apresoline) 10 mg SLOW IVP Q4H PRN PRN Reason: SBP > 180 and HR < 70 Hydromorphone HCl (Pacu-Dilaudid) 0.5 mg SLOW IVP Q10MIN PRN PRN Reason: Moderate to Severe Pain (6-10) Stop: 05/15/18 15:18 Hyoscyamine Sulfate (Levsin Sl) 0.125 mg PO Q4H PRN PRN Reason: Bladder Spasms Dextrose/Water (D5w) 1,000 mls @ 0 mls/hr IV .Q0M PRN PRN Reason: Hypoglycemia Levofloxacin 500 mg/ Device 100 mls @ 100 mls/hr IVPB Q24HR [facility] Last Admin: 05/14/18 16:35 Dose: 100 mls Piperacillin Sod/Tazobactam (Sod 3.375 gm/ Sodium Chloride) 100 mls @ 200 mls/ hr IVPB Q6HR [facility] Last Admin: 05/15/18 14:33 Dose: 100 mls Sodium Chloride (Normal Saline 0.9%) 1,000 mls @ 120 mls/hr IV .Q8H20M [facility] Last Admin: 05/15/18 14:30 Dose: 1,000 mls Insulin Human Lispro (Humalog) 0 units SC .MODERATE SLIDING SC PRN PRN Reason: Moderate Correctional Scale Last Admin: 05/14/18 18:31 Dose: 5 unit Insulin Human Lispro (Humalog) 0 units SC .BEDTIME SLIDING SC PRN PRN Reason: Bedtime Correctional Scale Meperidine HCl (Demerol) 12.5 mg SLOW IVP Q6H PRN PRN Reason: Pain Mirabegron (Myrbetriq Er) 50 mg PO DAILY [facility] Morphine Sulfate (Pacu-Morphine) 4 mg SLOW IVP ONE PRN PRN Reason: Moderate to Severe Pain (6-10) Stop: 05/15/18 15:18 Ondansetron HCl (Zofran) 4 mg IVP Q6H PRN PRN Reason: Nausea/Vomiting Ondansetron HCl (Zofran) 4 mg IVP Q6H PRN PRN Reason: Nausea/Vomiting Ondansetron HCl (Pacu-Zofran) 4 mg IVP ONE PRN PRN Reason: Nausea/Vomiting Stop: 05/15/18 15:18 Phenazopyridine HCl (Azo Standard) 97.5 mg PO Q8H PRN PRN Reason: DYSURIA Phenazopyridine HCl (Azo Standard) 97.5 mg PO Q8H PRN PRN Reason: DYSURIA Promethazine HCl (Pacu-Phenergan) 6.25 mg SLOW IVP ONE PRN PRN Reason: Nausea/Vomiting Stop: 05/15/18 15:18 Promethazine HCl (Pacu-Phenergan) 6.25 mg IM ONE PRN PRN Reason: Nausea/Vomiting Stop: 05/15/18 15:18 Senna/Docusate Sodium (Senokot S) 2 tab PO BIDPRN PRN PRN Reason: Constipation Sodium Chloride (Flush - Normal Saline) 10 ml IVF PRN PRN PRN Reason: Saline Flush Sodium Chloride (Flush - Normal Saline) 10 ml IVF PRN PRN PRN Reason: Saline Flush Sodium Chloride (Flush - Normal Saline) 10 ml IVF PRN PRN PRN Reason: Saline Flush Sodium Chloride (Flush - Normal Saline) 10 ml IVF PRN PRN PRN Reason: Saline Flush Tamsulosin HCl (Flomax) 0.4 mg PO DAILY DEREJE Zolpidem Tartrate (Ambien) 5 mg PO HSPRN PRN PRN Reason: Insomnia
[2018-05-15] MEDS: Tamsulosin HCl 0.4 MG CAP PO SCH (15:46)
[2018-05-15] MEDS: HumaLOG 300 UNITS/3 ML VIAL SC PRN (15:55)
[2018-05-15] MEDS: HYDROcodone/Acetaminophen 10/325 mg Tablet PO PRN ×3 (15:57→23:56)
[2018-05-15] MEDS ORDERED: VANCOMYCIN IVPB PRN (16:51)
[2018-05-15] MEDS: Vancomycin HCl 1.5 GM in Sodium Chloride 0.9% 250 ML 300 ML IVPB SCH (19:02)
[2018-05-15] MEDS: LITHIUM OROTATE PO SCH (20:06)
[2018-05-15] MEDS: Insulin Glargine 10 UNITS in Pre-Filled Syringe 1 EACH SC SCH (20:08)
[2018-05-15] MEDS: Dextrose 5 %-0.45 % NaCl 1,000 ML IV SCH (20:42)
[2018-05-15] MEDS ORDERED: Vancomycin HCl 1 GM in Premix Bag 1 BAG IVPB SCH (21:00)
[2018-05-16] MEDS: Sodium Chloride 0.9% 1,000 ML IV SCH ×4 (02:38→16:47)
[2018-05-16] MEDS: Vancomycin HCl 1.5 GM in Sodium Chloride 0.9% 250 ML 300 ML IVPB SCH ×4 (02:38→20:48)
[2018-05-16] MEDS: HYDROcodone/Acetaminophen 10/325 mg Tablet PO PRN ×3 (04:31→16:00)
[2018-05-16 05:30] LABS: #Basophils 0.1 thou/uL (0.0-0.2); #Eosinphils 0.1 thou/uL (0.0-0.7); #Lymphocytes 2.6 thou/uL (1.20-3.40); #Monocytes 0.9 thou/uL (0.11-0.59); #Neutrophils 6.6 thou/uL (1.40-6.50); %Basophils 0.5 % (0.0-1.0); %Eosinophils 0.7 % (0.0-10.0); %Lymphocytes 25.3 % (21.0-51.0); %Monocytes 8.9 % (0.0-10.0); %Neutrophils 64.6 % (42.0-75.0); Hemoglobin 13.2 g/dL (14.0-18.0); Mean Corpuscular HGB CONC 33.1 g/dL (32.0-36.0); Mean Corpuscular Volume 90.7 fL (78.0-98.0); Mean Platelet Volume 7.3 fL (7.4-10.4); Platelet Count 391 thou/uL (130-400); RBC Distribution Width 11.3 % (11.5-14.5); White Blood Cell (WBC) Count 10.3 thou/uL (4.8-10.8)
[2018-05-16 05:53] LABS: Anion Gap 10 mmol/L (10-20); BUN (Urea Nitrogen) 11 mg/dL (8.9-20.6); Calc. Creatinine Clearance 173 mL/min (70-130); Calcium 8.5 mg/dL (7.8-10.44); Carbon Dioxide 23 mmol/L (22-29); Chloride 107 mmol/L (98-107); Estimated GFR-MDRD Greater than 90; Glucose 157 mg/dL (70-105); Potassium 3.5 mmol/L (3.5-5.1); Sodium 136 mmol/L (136-145)
[2018-05-16] MEDS: HumaLOG 300 UNITS/3 ML VIAL SC PRN ×3 (05:59→17:37)
[2018-05-16] MEDS: Piperacillin/Tazobactam 3.375 GM in Sodium Chloride 0.9% 100 ML IVPB SCH ×2 (05:59→12:08)
[2018-05-16] MEDS: Famotidine 20 MG TAB PO SCH ×2 (09:02→20:05)
[2018-05-16] MEDS: Insulin Glargine 10 UNITS in Pre-Filled Syringe 1 EACH SC SCH ×2 (09:04→20:10)
[2018-05-16] MEDS: LITHIUM OROTATE PO SCH ×2 (09:06→20:54)
[2018-05-16] MEDS: Multivit, Therapeutic 1 TAB PO SCH (09:06)
[2018-05-16] MEDS: Tamsulosin HCl 0.4 MG CAP PO SCH (09:07)
--- NOTE | 2018-05-16 10:53 | PRG ---
DATE OF SERVICE: 05/16/2018 SUBJECTIVE: The patient feels better, his intractable perirectal discomfort has improved status post treatment of his prostatic abscess. Denies nausea, vomiting, fever, or chills. OBJECTIVE: VITAL SIGNS: Stable. He is afebrile, 98, 85, 18, 98%, and 134/75. I's and O's per his suprapubic tube. Urine output is 925. He is positive 2 L. GENERAL: The patient appears to be in no acute distress. ABDOMEN: Soft. Suprapubic tube is adequately secured with clear dilute urine. Urethral Myers catheter is plugged and stenting his urethra due to treatment of his urethral stricture, some old bloody discharge encrusted, nursing staff to clean. EXTREMITIES: No cyanosis, clubbing or edema. PERTINENT LABORATORY DATA: White count 10, hemoglobin 13, platelets 391. Creatinine 0.7. His blood sugars have been running [address] [place] is less than 0.0. Hepatitis, HIV parameters negative. Cultures: Urine culture negative thus far. Blood culture negative thus far. Prostatic abscess culture demonstrating Staph aureus. Anaerobic is pending. IMPRESSION AND PLAN: 1. Mr. White is a 22-year-old male with a history of type 1 diabetes, with significant glucosuria. 2. History of multiple admissions due to diabetic ketoacidosis. 3. History of bipolar, on lithium. Recent level subtherapeutic. Per patient's parents, the patient tends to act out, especially when his sugars are uncontrolled and his lithium levels are suboptimal. Medical service to doses lithium 4. presented with intractable perirectal pain. Workup demonstrated prostatic abscess. Postop day #1, cystoscopy, release of penile bridge, TUR limited of the prostate, suprapubic tube, transrectal ultrasound, needle aspiration of his prostatic abscess as his prostate abscess was inapproachable via TUR approach. patient is clinically stable. I have placed the patient on vancomycin and Zosyn. Preliminary culture demonstrates Staph; therefore, will continue vancomycin, as anaerobic cultures are pending, will continue Zosyn. Infectious Disease consult is pending. I informed the patient again that it is prudent to leave an indwelling urethral Myers catheter as his stricture was concomitantly treated. He appears to be agreeing to this, thus far. Anticipate patient will be in-house for the next several days until culture finalized and will require a PICC line. He will require minimum 4 to 6 weeks of antibiotic therapy due to presenting prostatic abscess and high risk of recrudescence due to history of poorly controlled diabetes and significant glucosuria. Aggressive treatment of his diabetes is imperative. Job ID: [id number] [facility]
[2018-05-16 11:42] LABS: Hemoglobin A1c 11.7 % (4.0-6.0)
[2018-05-16] MEDS: Bacitracin Zinc 1 Packet TOP PRN (12:23)
--- NOTE | 2018-05-16 12:54 | OP ---
DATE OF PROCEDURE: 05/15/2018 PROCEDURE PERFORMED: Flexible sigmoidoscopy, exam under anesthesia. PREPROCEDURE DIAGNOSES: I am asked to see Mr. White specifically for a sigmoidoscopy in the OR by Dr. Pabon, who is treating him for a prostatic abscess. She was concerned that on trying to unroof that abscess, she had seen some blood on her gloved finger with her digital rectal exam and want to make sure there were no signs of perforation or injury to the rectum. Before proceeding with exam, I reviewed the patient's chart, records, and rectal ultrasound images with Urology and Radiology, it was in the room. There were no signs of intersphincteric or perirectal abscess on his CAT scans or by transanal ultra and images of the prostate and rectal area. I did not do rectal ultrasound, but in reviewing them with the radiologist present and urologist present, they were able to show me the perirectal structures and we all three agree with some abscess in that area. POSTPROCEDURE DIAGNOSIS: No evidence of rectal trauma. Exam under anesthesia notes finding suggestive of perirectal abscess. PROCEDURE PERFORMED: Flexible sigmoidoscopy and exam under anesthesia. PROCEDURE IN DETAIL: Informed consent was not able to be obtained as the patient was asleep and it was felt we proceed under indicated procedures, as the issue discovered in the OR, urologist to make sure there had been a traumatic perforation of the rectum. On digital exam, there is no evidence of perirectal abscess or rectal abnormalities. Prostate could be felt somewhat foggy, but the exam was deferred to Urology for details of the prostate. The endoscope was advanced to the anal canal to about 20 cm. There was some stool in the area, which were irrigated away. We were able to fully visualize the rectal mucosa to 10 cm with no evidence of intrinsic rectal disease such as inflammation or proctitis. There was no evidence of traumatic injury to the Retroflexed views in the rectum were normal. The scope was removed and the patient tolerated the procedure well. No complications. Job ID: [id number]
--- NOTE | 2018-05-16 13:06 | CON ---
DATE OF CONSULTATION: REASON FOR CONSULTATION: Prostatic abscess. HISTORY OF PRESENT ILLNESS: A 22-year-old, who has a history of type 1 diabetes mellitus. He has a previous admission for DKA to this hospital in November last year and presented this time with rectal pain for about a week before admission. Pain failed treatment with doxycycline and Flagyl and hemorrhoid cream, presented to the emergency room because of the intensity of pain and CT showed a possible prostatic abscess. Cultures yielded Staphylococcus aureus, which is methicillin sensitive and Dr. Pabon performed debridement. The procedures included a cystoscopy, limited TUR of prostate, transrectal ultrasound, needle aspiration of prostatic abscess, dilation of bulbar stricture, suprapubic catheter placement, and a Myers catheter placement over a guidewire. He is feeling still with moderate pain at the site. Denies headaches, visual symptoms, sore throat, odynophagia, or dysphagia. No cough or sputum production. No chest pain. No abdominal pain. No joint symptoms. No neurological symptoms. PAST MEDICAL HISTORY: Type 1 diabetes mellitus, previous episode of DKA treated few months ago. He has had multiple hospitalizations for DKA. Bipolar disorder. SOCIAL HISTORY: Lives with family. No cigarette smoking. ALLERGIES: NONE. NO IV DRUG USE. MEDICATIONS: He is currently receiving; 1. Bacitracin. 2. Clonidine. 3. Dextrose. 4. Famotidine. 5. Hyoscyamine. 6. Meperidine. 7. Ondansetron. 8. Zosyn. 9. Vancomycin. PHYSICAL EXAMINATION: VITAL SIGNS: He has been afebrile through the hospital stay. Other vital signs are normal. O2 saturation 98. SKIN: Not remarkable. The patient has peripheral IV access, Myers catheter, and suprapubic catheter. No lymphadenopathy. HEENT: Ocular movements conjugate. Oral cavity normal. Teeth are in very good shape. NECK: Supple. No jugular vein distention. LUNGS: Symmetric clear breath sounds. HEART: S1 and S2. Regular rate. No S3 or S4. ABDOMEN: Soft and not distended or tender. No ascites. No bladder distention. No joint inflammatory activity noted. Pulses 1+ in dorsalis pedis. NEURO: Nonfocal including cognitive function. LABORATORY DATA: White cell count is 8.7 and now is 10.3, hemoglobin 13, MCV 90, and platelets 391. Sodium 136, creatinine 0.76, AST 11, ALT 11, alkaline phosphatase 109, albumin 4.1, and globulin 3.3. Urinalysis fairly normal. Serology nonreactive. Microbiology with Staph aureus and MSSA from rectum fluid and the aspirate from the prostate. CT of abdomen and pelvis demonstrated a 2.2 cm fluid density mass right inferior margin of the prostate gland. Pathology is pending. ASSESSMENT: 1. Type 1 diabetes mellitus and multiple prior episodes of diabetic ketoacidosis, poorly-controlled type 1 diabetes mellitus. 2. Rectal pain, eventually identified as methicillin-susceptible Staphylococcus aureus prostatic abscess status post transrectal aspirate, cystoscopy, and suprapubic catheter placement and dilation of a bulbar stricture. DISCUSSION: The pathophysiology of this patient's abscess is not clear. He does have the urethral stricture and a previous likely episodes of urethral catheterization. He did not acknowledge any insertion of any object in his rectum, which would be another way of developing a prostatic abscess. The absence of abnormalities in the urinalysis would argue against a urinary tract infection or urethritis leading to prostatitis. Hematogenous spread was not ruled out. It is another possibility, although we do not have proof of bacteremia from the specimen submitted. The management will include drainage, which has already been accomplished to the drainage, which is usually done either transrectally or via transurethral approach, but he will need continuation of antimicrobial therapy with intravenous coverage. We will transition him to IV cefazolin and plan outpatient treatment through a PICC line. Job ID: [id number]
--- NOTE | 2018-05-16 13:56 | PDOC.PN ---
- Subjective Encounter Start Date: 05/16/18 Encounter Start Time: 13:45 Subjective: f/u for prostatic abscess with staph aureus on Vancomycin and s/p needle -: aspiration and TUR, lysis of adhesions POD #1. Feels better overall and -: states BM less painful. - Objective MAR Reviewed: Yes Vital Signs & Weight: Vital Signs (12 hours) Temp Pulse Resp BP Pulse Ox 05/16/18 08:00 98.1 F 85 18 134/75 98 05/16/18 04:00 97.5 F L 77 16 128/73 98 Weight Weight 176 lb 5.917 oz I&O: 05/15/18 05/16/18 05/17/18 06:59 06:59 06:59 Intake Total 3400 Output Total 925 Balance 2475 Result Diagrams: 05/16/18 05:20 05/16/18 05:20 Additional Labs: Accuchecks 05/16/18 05/16/18 05/15/18 11:04 05:22 20:16 POC Glucose 198 H 162 H 284 H 05/15/18 15:50 POC Glucose 271 H Microbiology 05/14/18 12:50 Urine voided Urine Culture - Final NO GROWTH AT 48 HOURS 05/15/18 11:12 Rectum - Fluid Bacterial Culture - Preliminary 05/15/18 11:12 Rectum - Fluid Staphylococcus aureus 05/15/18 11:02 Prosthesis - Abscess Bacterial Culture - Preliminary 05/15/18 11:02 Prosthesis - Abscess Staphylococcus aureus 05/14/18 15:52 Venous blood - Left Arm Blood Culture - Preliminary NO GROWTH AT 48 HOURS 05/14/18 15:48 Venous blood - Right Hand Blood Culture - Preliminary NO GROWTH AT 48 HOURS Laboratory Tests 01/21/17 12/09/17 05/14/18 05:11 05:50 12:22 WBC Plt Count 444 H Hemoglobin A1c 11.7 H 4.6 05/15/18 05/16/18 06:17 05:20 WBC 11.3 H Plt Count 525 H Hemoglobin A1c 11.7 H Phys Exam - Physical Examination Constitutional: NAD HEENT: PERRLA, sclera anicteric, oral pharynx no lesions Neck: no nodes, no JVD, supple Respiratory: no wheezing, no rales, no rhonchi, clear to auscultation bilateral Cardiovascular: RRR, no significant murmur, no rub, gallop suprapubic catheter in place Gastrointestinal: soft, non-tender, no distention, positive bowel sounds Musculoskeletal: no edema, pulses present Neurological: normal sensation, moves all 4 limbs Psychiatric: A&O x 3 Skin: normal turgor, cap refill <2 seconds Dx/Plan (1) Prostate abscess Code(s): N41.2 - ABSCESS OF PROSTATE Status: Acute Comment: s/p needle drainage 05/15/18 POD #1, continue Vancomycin targeting staph aureus, continue abx coverage and monitor clinical response (2) Diabetes mellitus type 1 Status: Chronic Comment: A1C 11.7, poor control, continue Glargine, ISS, ADA (3) Bipolar 1 disorder Code(s): F31.9 - BIPOLAR DISORDER, UNSPECIFIED Status: Chronic Comment: Continue [place] - Plan continue antibiotics, social services designee, out of bed/ambulate, DVT proph w/SCDs Stable currently -: Continue Vancomycin -: Continue SPT -: Pain control with [place]/Demerol -: OOB/ambulate * AM lab: BMP, CBC
[2018-05-16 17:32] LABS: Vancomycin, Trough 22.4 ug/mL
[2018-05-17] MEDS: HYDROcodone/Acetaminophen 10/325 mg Tablet PO PRN ×2 (00:03→04:03)
[2018-05-17] MEDS: Sodium Chloride 0.9% 1,000 ML IV SCH ×3 (00:06→14:41)
[2018-05-17 05:06] LABS: #Basophils 0.1 thou/uL (0.0-0.2); #Eosinphils 0.1 thou/uL (0.0-0.7); #Lymphocytes 1.4 thou/uL (1.20-3.40); #Neutrophils 6.3 thou/uL (1.40-6.50); %Basophils 0.7 % (0.0-1.0); %Eosinophils 0.9 % (0.0-10.0); %Monocytes 11.4 % (0.0-10.0); Hemoglobin 14.4 g/dL (14.0-18.0); Mean Corpuscular HGB CONC 32.4 g/dL (32.0-36.0); Mean Corpuscular Hemoglobin 29.5 pg (27.0-31.0); Mean Platelet Volume 7.3 fL (7.4-10.4); Platelet Count 370 thou/uL (130-400); RBC Distribution Width 11.3 % (11.5-14.5); White Blood Cell (WBC) Count 8.9 thou/uL (4.8-10.8)
[2018-05-17 05:26] LABS: Anion Gap 17 mmol/L (10-20); BUN (Urea Nitrogen) 8 mg/dL (8.9-20.6); Calc. Creatinine Clearance 127 mL/min (70-130); Calcium 8.6 mg/dL (7.8-10.44); Carbon Dioxide 18 mmol/L (22-29); Chloride 108 mmol/L (98-107); Estimated GFR-MDRD 90; Glucose 179 mg/dL (70-105); Potassium 3.5 mmol/L (3.5-5.1); Sodium 139 mmol/L (136-145)
[2018-05-17] MEDS: traMADol HCl 50 MG TAB PO PRN ×2 (08:18→14:45)
[2018-05-17] MEDS: Famotidine 20 MG TAB PO SCH ×2 (08:19→21:22)
[2018-05-17] MEDS: Ibuprofen 800 MG TAB PO SCH ×3 (08:20→21:21)
[2018-05-17] MEDS: LITHIUM OROTATE PO SCH ×2 (08:21→21:22)
[2018-05-17] MEDS: Multivit, Therapeutic 1 TAB PO SCH (08:21)
[2018-05-17] MEDS: Tamsulosin HCl 0.4 MG CAP PO SCH (08:21)
[2018-05-17] MEDS: Vancomycin HCl 1.5 GM in Sodium Chloride 0.9% 250 ML 300 ML IVPB SCH ×2 (08:22→21:23)
[2018-05-17] MEDS: Insulin Glargine 10 UNITS in Pre-Filled Syringe 1 EACH SC SCH ×2 (08:28→21:20)
--- NOTE | 2018-05-17 08:52 | PRG ---
DATE OF SERVICE: 05/17/2018 SUBJECTIVE: The patient resting comfortably. He has had a couple bowel movements and states that his rectal pain is significantly improved. He is tolerating suprapubic tube. Complaining of urethral Myers catheter in penis; however, is tolerating. He has better attitude about it than previous; however, remains concerned. I also discussed with patient at bedside regarding indications of suprapubic tube and urethral Myers due to presenting prostatic abscess and intractable perirectal pain with resolution with appropriate treatment. PHYSICAL EXAMINATION: VITAL SIGNS: Stable. He is afebrile. 98.2, 71, 97, 145/94. I's and O's 4100 in, 3000 out. ABDOMEN: Soft, nontender, nondistended. Suprapubic tube site is clean, dry, and intact. Dressing changed. Urethral Myers catheter in situ with no significant discharge of concern. Urine output is clear. EXTREMITIES: No cyanosis, clubbing or edema. PERTINENT LABORATORY DATA: White count 8.9, hemoglobin 14, platelet 370. Creatinine of 1.0. His blood sugars have been erratic in 284 to 161. I did check a hemoglobin A1c, which is grossly elevated at 11.7. Blood culture, urine culture negative. Prostatic abscess aspiration culture demonstrates Staph aureus, sensitivity pending. Anaerobic cultures are pending. The patient currently on vancomycin. Zosyn has been discontinued by Infectious Disease. IMPRESSION AND PLAN: 1. A 22-year-old male with history of type 1 diabetes with significant glucosuria. Recent hemoglobin A1c grossly elevated at 11.4. 2. History of multiple admissions due to diabetic ketoacidosis. 3. History of bipolar, on lithium, subtherapeutic, restarted on his lithium. 4. The patient presented with intractable perirectal pain, workup demonstrating prostatic abscess. Postop day #2, status post cystoscopy, release of penile bridge, trans urethral resection limited to prostate, suprapubic tube, transrectal ultrasound, needle aspiration of prostatic abscess with clinical improvement. I recommend patient continues vancomycin. Appreciate Infectious Disease consult. Zosyn has been discontinued by Dr. Dillard. patient will require IV PICC line, minimum 4-6 weeks of antibiotic regimen is advised given presenting complicated urinary tract infection, prostatic abscess. Ideally, I did discuss with patient that he should be diverted with suprapubic tube. As he presents urethral stricture with dilatation, I would prefer to leave the indwelling urethral Myers catheter, plugged to stent the area of dilatation. I did inform the patient that early removal of urethral Myers catheter and allowing him to void would be less ideal, because of presenting prostate abscess. However, I do not prefer to remove indwelling urethral Myers catheter as urinary diversion will result in accelerated recurrence of stricture due to dry urethra. He verbalizes understanding and he states that he will consider. He was quite adamant to have his catheter removed o preop consult however, appears to be open to suggestions at this time. He did express concern that he does not feel comfortable transitioning to private residence with a PICC line, suprapubic tube. Case Management consulted to evaluate his candidacy regarding [facility] for prolonged IV antibiotics, suprapubic tube given complicated urinary tract infection/prostatic abscess; moreover strict control of diabetes imperative to minimize risk of recurrence, progression. Job ID: [id number] MTDD
[2018-05-17] MEDS: HumaLOG 300 UNITS/3 ML VIAL SC PRN ×2 (12:28→17:10)
--- NOTE | 2018-05-17 16:03 | SPC ---
SONOGRAPHIC GUIDED LEFT UPPER EXTREMITY PICC: History: Prostatitis. FINDINGS: After explaining the procedure and answering all questions, the left upper extremity was prepped and draped in the usual sterile fashion. Sterile technique, buffered local anesthesia, sonographic guidan ce and 22 gauge needle were used to carefully access the left basilic vein. Standard technique was th en used to place the tip of the 5 Amharic dual-lumen PICC so that the tip lies at the level of the sup erior vena cava. Catheter was flushed and secured externally. Patient tolerated the procedure well an d was returned in unchanged condition. Fluoro time: 0 seconds. IMPRESSION: Left upper extremity PICC is ready for use. POS: [facility]
[2018-05-17] MEDS: Bacitracin Zinc 1 Packet TOP PRN (17:03)
[2018-05-18] MEDS: Sodium Chloride 0.9% 1,000 ML IV SCH ×3 (03:07→21:34)
[2018-05-18] MEDS: traMADol HCl 50 MG TAB PO PRN (03:11)
[2018-05-18 03:42] LABS: #Eosinphils 0.1 thou/uL (0.0-0.7); #Monocytes 0.8 thou/uL (0.11-0.59); #Neutrophils 3.1 thou/uL (1.40-6.50); %Basophils 0.7 % (0.0-1.0); %Eosinophils 2.3 % (0.0-10.0); %Lymphocytes 33.2 % (21.0-51.0); %Monocytes 13.6 % (0.0-10.0); %Neutrophils 50.2 % (42.0-75.0); Hemoglobin 13.4 g/dL (14.0-18.0); Mean Corpuscular HGB CONC 33.4 g/dL (32.0-36.0); Mean Corpuscular Hemoglobin 29.4 pg (27.0-31.0); Mean Platelet Volume 7.3 fL (7.4-10.4); Platelet Count 331 thou/uL (130-400); RBC Distribution Width 11.3 % (11.5-14.5); Red Blood Cell (RBC) Count 4.56 mill/uL (4.70-6.10); White Blood Cell (WBC) Count 6.1 thou/uL (4.8-10.8)
[2018-05-18 03:51] LABS: Anion Gap 13 mmol/L (10-20); BUN (Urea Nitrogen) 8 mg/dL (8.9-20.6); Calc. Creatinine Clearance 144 mL/min (70-130); Calcium 8.9 mg/dL (7.8-10.44); Carbon Dioxide 23 mmol/L (22-29); Chloride 107 mmol/L (98-107); Estimated GFR-MDRD Greater than 90; Glucose 190 mg/dL (70-105); Potassium 3.5 mmol/L (3.5-5.1); Sodium 139 mmol/L (136-145)
[2018-05-18] MEDS: HumaLOG 300 UNITS/3 ML VIAL SC PRN ×2 (06:23→18:24)
[2018-05-18] MEDS: Insulin Glargine 10 UNITS in Pre-Filled Syringe 1 EACH SC SCH ×2 (08:58→21:49)
[2018-05-18] MEDS: Famotidine 20 MG TAB PO SCH ×2 (09:08→21:36)
[2018-05-18] MEDS: Tamsulosin HCl 0.4 MG CAP PO SCH (09:08)
[2018-05-18] MEDS: Ibuprofen 800 MG TAB PO SCH ×3 (09:08→21:36)
[2018-05-18] MEDS: Multivit, Therapeutic 1 TAB PO SCH (09:08)
[2018-05-18] MEDS: LITHIUM OROTATE PO SCH ×2 (09:09→21:36)
[2018-05-18 09:30] LABS: Vancomycin, Trough 17.4 ug/mL
[2018-05-18] MEDS: Vancomycin HCl 1.5 GM in Sodium Chloride 0.9% 250 ML 300 ML IVPB SCH ×2 (10:42→21:35)
[2018-05-18] MEDS: HYDROcodone/Acetaminophen 5/325 mg Tablet PO PRN ×2 (13:11→21:46)
--- NOTE | 2018-05-18 13:54 | PRG ---
DATE OF SERVICE: 05/18/2018 SUBJECTIVE: The patient feeling well stable. Rectal pain has improved. Has had bowel movements. Tolerating suprapubic indwelling urethral Myers catheter for now. OBJECTIVE: VITAL SIGNS: Stable. He is afebrile. I's and O's 4450 out of clear yellow urine. ABDOMEN: Soft, nontender, and nondistended. Suprapubic tube site is clean, dry , and intact. URETHRA: Myers catheter is plugged for stenting of his urethra. PERTINENT LABORATORY DATA: White count 6, hemoglobin 13, and platelet 331. Kidney function stable at 0.9. His blood sugars has been running in 340s to 167. Final cultures, blood culture and urine culture negative. Prostatic abscess aspirate culture final demonstrates no anaerobes. Staph aureus methicillin sensitive. The patient is currently on vancomycin. I did review with Dr. Dillard. The patient will be provided Ancef per Dr. Dillard. Has good penetration of the prostate. IMPRESSION IMPRESSION PLAN: 1. Bry is a 22-year-old male, who presented with history of type 1 diabetes with significant glucosuria. 2. Poorly controlled diabetes. Recent hemoglobin A1c on admission is 11. 3. History of bipolar on lithium, presented with subtherapeutic dose. 4. Presented with intractable perirectal pain. Workup demonstrating prostatic abscess. Postop day #3. 5. Cystoscopy, lysis of penile bridge, TUR limited prostate, suprapubic tube, transrectal ultrasound, needle aspiration of prostatic abscess as it was not approachable by TUR approach. He is on vancomycin appropriately, has had a PICC line. Case management working on home health, as he states that he would prefer to be discharged. Yesterday, He had suggested transfer to longterm, however, has changed his mind. Anticipate discharge tomorrow or Wednesday with suprapubic tube to gravity, urethral Myers plugged. Job ID: [id number] MTDD
--- NOTE | 2018-05-18 16:23 | ULT ---
INTRAOPERATIVE ULTRASOUND PROSTATE GLAND 05/15/18 HISTORY: CT examination on 05/14/18 demonstrated hypodense collection at lower portion of the prostate gland farzana picious for prostate abscess given the patient's clinical symptoms. Ultrasound guided puncture and a spiration of the fluid collection in the prostate gland was performed by Dr. Pabon. There is a hypoechoic area within the prostate gland which corresponds to the low density area seen on CT examin ation. IMPRESSION: Hypoechoic area within the right aspect of the lower prostate gland. Ultrasound guidance with rectal probe was performed for needle puncture of the collection. Please see operative report by Dr. Ivan oh for further details. POS: [facility]
[2018-05-18] MEDS: Bacitracin Zinc 1 Packet TOP PRN (21:37)
[2018-05-19] MEDS: HumaLOG 300 UNITS/3 ML VIAL SC PRN (06:12)
[2018-05-19 07:41] VITALS: BP 149/92; TEMP 97.7
[2018-05-19] MEDS: Tamsulosin HCl 0.4 MG CAP PO SCH (08:19)
[2018-05-19] MEDS: Ibuprofen 800 MG TAB PO SCH (08:19)
[2018-05-19] MEDS: Famotidine 20 MG TAB PO SCH (08:19)
[2018-05-19] MEDS: Multivit, Therapeutic 1 TAB PO SCH (08:20)
[2018-05-19] MEDS: LITHIUM OROTATE PO SCH (08:23)
[2018-05-19] MEDS: Vancomycin HCl 1.5 GM in Sodium Chloride 0.9% 250 ML 300 ML IVPB SCH (08:24)
[2018-05-19] MEDS: Insulin Glargine 10 UNITS in Pre-Filled Syringe 1 EACH SC SCH (08:25)
[2018-05-19] MEDS: HYDROcodone/Acetaminophen 5/325 mg Tablet PO PRN (08:35)
--- NOTE | 2018-05-19 08:37 | PRG ---
DATE OF SERVICE: 05/19/2018 SUBJECTIVE: No new complaints. OBJECTIVE: VITAL SIGNS: Stable. Afebrile. I's and O's; 4550 in, 4700 out. Urine output Clear. GENITOURINARY: SP tube draining clear yellow urine. Urethral Myers catheter plugged with no significant discharge. PERTINENT LABS: White count 6, hemoglobin 13, and platelet 231. Blood sugars have been running 190 to 301. Serology, hepatitis, HIV negative. Urine culture and blood culture negative. Prostatic abscess culture, negative for anaerobe, Staph aureus. IMPRESSION AND PLAN: Mr. White is a 22-year-old with, 1. History of poorly controlled diabetes. 2. History of marijuana abuse. 3. History of bipolar, on lithium. 4. History of medical noncompliance, admitted due to intractable rectal pain. Workup demonstrating prostatic abscess on postop day #4, status post cystoscopy, lysis of penile bridge, limited TUR of prostate, suprapubic tube, transrectal ultrasound, needle aspiration of prostatic abscess as it was not approachable by TUR approach, dilation of urethral stricture. He is currently on vancomycin, has had PICC line. The patient initially requested referral to shelter for prolonged IV antibiotic and suprapubic tube, which will be required as an outpatient. He changed his mind, requested to go home. Case Management was consulted regarding home health. Apparently, he got upset about Home Health evaluation despite the fact that we have had a prolonged discussion about this matter. He has an appointment with Infectious Disease to continue his IV antibiotic via PICC line, ceftazidime per IV. Minimum 4 to 6 weeks of IV antibiotics is advised. He will be discharged with suprapubic tube to gravity, urethral Myers plugged as it is stenting the dilatation area. The patient agreed to this yesterday. I will arrange a CT of the pelvis with and without IV contrast prior to followup appointment to assess for stage his prostatic abscess. If no obvious recurrence of prostatic abscess, plan is to remove his urethral Myers catheter for voiding trial and to monitor PVR via his suprapubic tube. He has an appointment with me on May 30 in process to arrange CT of the pelvis 1 to 2 hours prior to appointment. I have already sent prescription for VESIcare 5 mg one p.o. daily #30, Colace 100 mg one p.o. b.i.d., Flomax one p.o. daily, and [place] to his pharmacy. Discharge after CT appointment finalized. Job ID: [id number] BERNARD
== END 2018-05-19 14:46 | disposition home or self-care (01) | DRG 714 ==
LOC: ERS 11:31 → ONC 15:05
PROVIDERS: ADMIT Internal Medicine; ATTEND Internal Medicine
PROC: 0VB08ZZ Excision of Prostate, Via Natural or Artificial Opening Endoscopic (ICD-10-PCS; principal; 2018-05-15)
PROC: 0DJD8ZZ Inspection of Lower Intestinal Tract, Via Natural or Artificial Opening Endoscopic (ICD-10-PCS; 2018-05-15)
PROC: BT101ZZ Fluoroscopy of Bladder using Low Osmolar Contrast (ICD-10-PCS; 2018-05-15)
PROC: 0T7D8ZZ Dilation of Urethra, Via Natural or Artificial Opening Endoscopic (ICD-10-PCS; 2018-05-15)
PROC: 0T9B80Z Drainage of Bladder with Drainage Device, Via Natural or Artificial Opening Endoscopic (ICD-10-PCS; 2018-05-15)
PROC: 02HV33Z Insertion of Infusion Device into Superior Vena Cava, Percutaneous Approach (ICD-10-PCS; 2018-05-17)
PROC: B548ZZA Ultrasonography of Superior Vena Cava, Guidance (ICD-10-PCS; 2018-05-17)
DX: N41.2 Abscess of prostate (principal); E10.9 Type 1 diabetes mellitus without complications; F31.9 Bipolar disorder, unspecified; F12.10 Cannabis abuse, uncomplicated; Z79.4 Long term (current) use of insulin; L91.8 Other hypertrophic disorders of the skin; N35.912 Unspecified bulbous urethral stricture, male; Z91.19 Patient's noncompliance with other medical treatment and regimen; B95.61 Methicillin susceptible Staphylococcus aureus infection as the cause of diseases classified elsewhere
CPT/HCPCS: 36415; 36416; 36569; 51702; 74177; 76872; 80048; 80053; 80074; 80178; 80202; 81003; 83036; 85025; 85610; 85730; 87040; 87070; 87077; 87086; 87186; 87205; 87389; 88305; 96361; 96374; C1751; C2627; J1100; J1170; J1825; J1885; J1956; J2001; J2175; J2270; J2405; J2543; J2550; J2704; J3010; J3370; J7050; Q9961; Q9966

== ENCOUNTER 2018-05-30 08:01 | Outpatient (CLI) | payer BC ==
[~2018-05-30 08:01] MED LIST changes: -Heparin 1,000 UNITS/ML VIAL ONE
--- NOTE | 2018-05-30 09:56 | CT ---
CT OF THE PELVIS WITH AND WITHOUT IV CONTRAST: INDICATION: History of prostate abscess with suprapubic catheter and urinary bladder catheter replacement. CONTRAST: 70 cc of Isovue 370. COMPARISON: CT of the abdomen and pelvis dated 05/14/2018. FINDINGS: The low-density lesion along the inferior aspect of the prostate gland is no longer identified. Ther e is a urinary bladder catheter and suprapubic bladder catheter in place. No free fluid is evident. No definite enlarged lymph nodes are seen. No acute osseous abnormality is evident. IMPRESSION: Interval resolution of the hypodense oval lesion involving the inferior aspect of the prostate gland likely reflecting resolution of the previously seen prostate abscess. POS: [facility]
== END 2018-05-30 08:02 | disposition home or self-care (01) ==
LOC: BICCT 08:01
PROVIDERS: ATTEND Urology
DX: N41.2 Abscess of prostate (principal)
CPT/HCPCS: 72194; Q9966

== ENCOUNTER 2018-08-01 12:05 | Inpatient (IN) | payer BC ==
[2018-08-01 13:21] LABS: #Basophils 0.1 thou/uL (0.0-0.2); #Eosinphils 0.1 thou/uL (0.0-0.7); #Lymphocytes 2.3 thou/uL (1.20-3.40); #Monocytes 0.8 thou/uL (0.11-0.59); #Neutrophils 7.4 thou/uL (1.40-6.50); %Basophils 0.7 % (0.0-1.0); %Eosinophils 0.6 % (0.0-10.0); %Lymphocytes 21.3 % (21.0-51.0); %Monocytes 7.2 % (0.0-10.0); %Neutrophils 70.1 % (42.0-75.0); Hemoglobin 16.8 g/dL (14.0-18.0); Mean Corpuscular HGB CONC 34.4 g/dL (32.0-36.0); Mean Corpuscular Hemoglobin 30.1 pg (27.0-31.0); Mean Corpuscular Volume 87.7 fL (78.0-98.0); Mean Platelet Volume 7.7 fL (7.4-10.4); Platelet Count 363 thou/uL (130-400); RBC Distribution Width 11.4 % (11.5-14.5); Red Blood Cell (RBC) Count 5.58 mill/uL (4.70-6.10); White Blood Cell (WBC) Count 10.6 thou/uL (4.8-10.8)
[2018-08-01 14:57] LABS: ALT (SGPT) 10 U/L (8-55); AST (SGOT) 14 U/L (5-34); Albumin 4.5 g/dL (3.5-5.0); Alkaline Phosphatase 66 U/L (40-150); Anion Gap 16 mmol/L (10-20); BUN (Urea Nitrogen) 15 mg/dL (8.9-20.6); Bilirubin, Total 0.8 mg/dL (0.2-1.2); Calc. Creatinine Clearance 0 mL/min (70-130); Calcium 9.3 mg/dL (7.8-10.44); Carbon Dioxide 21 mmol/L (22-29); Chloride 104 mmol/L (98-107); Estimated GFR-MDRD Greater than 90; Globulin 2.7 g/dL (2.4-3.5); Glucose 224 mg/dL (70-105); Potassium 4.1 mmol/L (3.5-5.1); Protein, Total 7.2 g/dL (6.0-8.3); Sodium 137 mmol/L (136-145)
[2018-08-01] MEDS ORDERED: Insulin Regular 100 units/100 ml in NS IVPB SCH (15:30)
[2018-08-01 15:42] LABS: Bicarbonate (HCO3v) 20.2 mmol/L (22.0-28.0); Chloride 104 mmol/L (98-107); O2 Tension (PvO2) 115.6 mmHg (35.0-45.0); Potassium 4.2 mmol/L (3.5-5.1); Sodium 137 mmol/L (138-145); T. Carbon Dioxide 21.1 mmol/L (22.0-28.0); pH (Venous) 7.422 (7.320-7.430); vO2 Saturation-calc 98.7 % (60.0-85.0)
[2018-08-01] MEDS ORDERED: Lidocaine Viscous Sol 2% 15 ml UD Cup ONE (17:05)
[2018-08-01] MEDS ORDERED: Mag-Al 1200 mg/1200 mg/30 ML UDCUP ONE (17:05)
[2018-08-01 18:02] LABS: Bilirubin Negative (Negative); Blood, Urine Negative (Negative); Clarity CLEAR (Clear); Glucose, Urine (Dipstick) >=1000 mg/dL (Negative); Leukocyte Small (Negative); Nitrite Negative (Negative); Protein, Urine (Dipstick) Negative (Neg-Trace); Specific Gravity, Urine 1.027 (1.002-1.036)
[2018-08-01 18:04] LABS: Bacteria/HPF None Seen HPF (None Seen); Hyaline Casts/LPF 4-6 HYALINE CAST LPF (0-3 Hyaline); RBC/HPF 0-3 HPF (0-3); Squamous Epithelial 0-3 HPF (0-3); WBC/HPF 21-50 HPF (0-3)
[2018-08-01 18:12] LABS: Amphetamine Not Detected (NotDetected); Barbiturates Screen Not Detected (NotDetected); Benzodiazepine Screen Not Detected (NotDetected); Cocaine Metabolite Screen Detected (NotDetected); Medtox Control Line Valid? VALID (VALID); Medtox Reader # READER 4; Methadone Not Detected (NotDetected); Methamphetamine Not Detected (NotDetected); Opiate Screen Not Detected (NotDetected); Oxycodone Screen Not Detected (NotDetected); Phencyclidine (PCP) Not Detected (NotDetected); THC/Cannabinoid Screen Detected (NotDetected); Tricyclic Screen Not Detected (NotDetected)
[2018-08-01] MEDS ORDERED: Ondansetron ODT 4 MG TAB SL PRN (18:32)
[2018-08-01] MEDS ORDERED: Insulin Regular 300 UNITS/3 ML VIAL SC PRN ×2 (18:32→20:20)
[2018-08-01] MEDS ORDERED: Dextrose 50% Abboject 50 ML SYRINGE IVP PRN ×2 (18:32→20:20)
[2018-08-01] MEDS ORDERED: Ondansetron PF 4 MG/2 ML Vial IVP PRN (18:32)
[2018-08-01] MEDS ORDERED: Dextrose 5% in Water 1,000 ML IV PRN ×2 (18:32→20:20)
[2018-08-01] MEDS ORDERED: Sodium Chloride 0.9% 1,000 ML IV SCH ×2 (18:32→22:00)
[2018-08-01 19:40] VITALS: BP 176/106; BMI 26.4
[2018-08-01] MEDS ORDERED: Sterile Water 10 ML VIAL FS SCH (20:30)
[2018-08-01] MEDS ORDERED: Ziprasidone 20 MG VIAL IM SCH (20:30)
[2018-08-01] MEDS: Lithium Carbonate 150 MG CAP PO SCH (20:31)
[2018-08-01] MEDS: Sodium Chloride 0.9% 1,000 ML IV SCH (20:32)
[2018-08-01] MEDS ORDERED: cefTRIAXone\\ROCEPHIN 1 GM in Sodium Chloride 0.9% 100 ML IVPB SCH (21:00)
[2018-08-01] MEDS ORDERED: Zolpidem Tartrate 5 MG TAB PO SCH (22:45)
--- NOTE | 2018-08-02 02:48 | HP ---
CHIEF COMPLAINT ON ADMISSION: Altered mental status. HISTORY OF PRESENT ILLNESS: The patient is a 22-year-old male with frequent trips to the hospital for noncompliance and diabetic ketoacidosis. On this particular occasion, his blood sugars have been running from 200 to 300. His father reports it had gotten up to 400, at which time he thought that he would bring him to the emergency room when he started acting unusual and confused. The father admits that he has actually been acting confused on a regular basis for quite some time. By the past couple days, he has even been agitated and his father assumed it was another DKA episode. He normally becomes manic when he has a diabetic ketoacidotic episode. He is not compliant with his lithium or any other medication for that matter. In the emergency room, his blood sugar was in the 200s and his urine drug screen came back positive for marijuana and cocaine. This was a surprise to the dad. PAST MEDICAL HISTORY: 1. Known history of polysubstance abuse. 2. Type 1 diabetes, noncompliant. 3. H pylori with severe gastroesophageal reflux. 4. Most recent hospitalization for prostate abscess that required surgical drainage. 5. Urethral strictures. PAST SURGICAL HISTORY: Aforementioned prostate incision and drainage. PSYCHIATRIC HISTORY: Significant bipolar disorder and exacerbation of symptoms to the point of schizoaffective disorder when using marijuana. SOCIAL HISTORY: Denies alcohol use. Currently uses marijuana on a regular basis. He has now added cocaine to his repertoire. Denies smoking. Still lives at home with his family. ALLERGIES: THE PATIENT HAS NO KNOWN DRUG ALLERGIES. MEDICATIONS: His current medication includes, 1. Tresiba 34 units subcu daily. 2. Pepcid 20 mg b.i.d. 3. Ibuprofen 800 p.r.n. muscle aches and pains. 4. Vitamin D3 of 5000 units twice a day. 5. He is supposed to be taking lithium, but he does not. 6. He also uses Humalog KwikPen 6 units subcu with meals on an as needed basis. At his followup visit after drainage of his prostate abscess, he was found in the office to have persistent pyuria and indeed on this hospitalization, he has persistent leukocytes in his urine. REVIEW OF SYSTEMS: CONSTITUTIONAL: Denies fever, chills, or malaise. HEENT: Denies discharge from ear, nose, or throat or sores in his mouth. CHEST: Denies shortness of breath or dyspnea or cough. CARDIOVASCULAR: Denies chest pain or palpitations. ABDOMEN: Denies nausea, vomiting, or diarrhea. : Still occasionally has painful urination that seems to be limited to his urethra, where he has had strictures. MUSCULOSKELETAL: No significant aches or pains. SKIN: No acute rashes. NEUROLOGICAL: Trouble with mentation and mental status necessitating his admission. PSYCHIATRIC: Frequent exacerbations of bipolar disorder with schizophreniform features usually also associated with substance abuse. PHYSICAL EXAMINATION: At the time of admission, VITAL SIGNS: Blood pressure is 176/106, O2 saturation 98%, pulse 98, respirations 16, temperature 98.9, and weighs 184 pounds. GENERAL: This is a well-developed, well-nourished, unkept male, alert and belligerent, doing the opposite of whatever the examiner ask him to do and smiling about it. HEENT: Normocephalic, atraumatic. Pupils are equal, round, and reactive to light. Extraocular muscles intact. TMs, nares, and pharynx are clear. NECK: Supple. Trachea midline. No masses. CHEST: Clear to auscultation. HEART: Regular rate and rhythm without murmur. ABDOMEN: Soft, nontender without hepatosplenomegaly. : Deferred. EXTREMITIES: Without clubbing, cyanosis, or edema. Normal range of motion present. Symmetrical muscular tone development in upper and lower extremities. SKIN: Without acute rashes or lesions. NEUROLOGIC: Cranial nerves are intact. Gait and cerebellar function normal. Sensory exam is intact. Mental status is alert. He is euphoric, oriented x1. LABORATORY DATA: Lab work on admission shows WBC 10.6, hemoglobin 16.8, hematocrit 49.0 with platelets at 363. Sodium is 137, potassium 4.2, chloride 104, BUN 15, creatinine 0.84. Liver functions unremarkable. UA shows greater than 1000 glucose, 80 ketones, 21 to 50 wbc's. Toxicology screen shows lithium at 0.188, cannabis detected and cocaine detected. PH is 7.4, pCO2 of 31, pO2 of 115. ASSESSMENT: 1. Altered mental status. 2. Diabetic ketoacidosis. 3. Polysubstance abuse. 4. General medical noncompliance. 5. Bipolar disorder with schizoaffective features. PLAN: Plan will be telemetry monitoring, IV fluids, monitor his glucose. We use a sliding scale and serially re-evaluate him. He is expected to return to baseline probably in the morning. Job ID: [id number]
[2018-08-02] MEDS: Sodium Chloride 0.9% 1,000 ML IV SCH (03:10)
[2018-08-02 07:29] VITALS: TEMP 97.8
[2018-08-02] MEDS ORDERED: Dextrose 5% in Water 1,000 ML IV PRN (07:50)
[2018-08-02] MEDS ORDERED: Insulin Regular 300 UNITS/3 ML VIAL SC PRN ×2 (07:50)
[2018-08-02] MEDS ORDERED: Dextrose 50% Abboject 50 ML SYRINGE IVP PRN (07:50)
[2018-08-02] MEDS ORDERED: Insulin Glargine 34 UNITS in Pre-Filled Syringe 1 EACH SC SCH (09:00)
[2018-08-02] MEDS: Lithium Carbonate 150 MG CAP PO SCH (09:10)
== END 2018-08-02 11:34 | disposition left against medical advice (07) | DRG 639 ==
LOC: ERS 12:05 → IMCU/EMU 16:28
PROVIDERS: ADMIT Specialist; ATTEND Specialist
DX: E10.10 Type 1 diabetes mellitus with ketoacidosis without coma (principal); F12.10 Cannabis abuse, uncomplicated; F14.10 Cocaine abuse, uncomplicated; F31.9 Bipolar disorder, unspecified; K21.9 Gastro-esophageal reflux disease without esophagitis; Z91.14 Patient's other noncompliance with medication regimen; Z79.4 Long term (current) use of insulin; Z79.899 Other long term (current) drug therapy
CPT/HCPCS: 36416; 80053; 80178; 80306; 81003; 81015; 82010; 82330; 82803; 85025; 87086; 96361; 96365; J0696; J1815; J1825; J3486; J3490

== ENCOUNTER 2024-12-08 03:48 | Inpatient (IN) | payer SELFPAY ==
[2024-12-08] MEDS ORDERED: Ondansetron PF 4 MG/2 ML Vial ONE (04:20)
[2024-12-08 04:27] LABS: Actual Bicarbonate (HCO3v) 18.7 mEq/L (22-28); Base Excess -4.6 mEq/L (-2.0 to +3.0); Calcium, Ionized (venous) 1.18 mmol/L (1.16-1.32); Chloride (VBG) 91 mmol/L (98-106); Hematocrit-VBG 52 % (42.0-52.0); Hemoglobin (Hb) 17.6 g/dL (13.2-17.3); Potassium (VBG) 4.12 mmol/L (3.70-5.30); Sodium 135 mmol/L (133-146)
[2024-12-08 04:32] LABS: #Basophils 0.05 10x3/uL (0.0-0.2); #Eosinophils 0.07 10x3/uL (0.0-0.7); #Monocytes 0.61 10x3/uL (0.11-0.59); #Neutrophils 5.81 10x3/uL (1.40-6.50); %Basophils 0.5 % (0.0-1.0); %Eosinophils 0.8 % (0.0-10.0); %Lymphocytes 29.2 % (21.0-51.0); %Monocytes 6.6 % (0.0-10.0); %Neutrophils 62.5 % (42.0-75.0); Hematocrit 48.6 % (42.0-52.0); Hemoglobin 16.5 g/dL (14.0-18.0); Mean Corpuscular Hemoglobin 29.0 pg (27.0-31.0); Mean Corpuscular Volume 85.4 fL (78.0-98.0); Platelet Count 415 10x3/uL (130-400); Red Blood Cell (RBC) Count 5.69 mill/uL (4.70-6.10); White Blood Cell (WBC) Count 9.29 10x3/uL (4.8-10.8)
[2024-12-08 04:55] LABS: ALT (SGPT) 13 U/L (Less than 45); AST (SGOT) 19 U/L (11-34); Albumin 4.3 g/dL (3.1-4.5); Alkaline Phosphatase 105 U/L (40-110); Anion Gap 28 mmol/L (10-20); BUN (Urea Nitrogen) 22 mg/dL (8.9-20.6); Bilirubin, Total 0.8 mg/dL (0.3-1.2); Calc. Creatinine Clearance 0 mL/min (70-130); Calcium 10.2 mg/dL (7.8-10.44); Carbon Dioxide 16 mmol/L (22-29); Chloride 92 mmol/L (98-107); Globulin 3.4 g/dL (2.4-3.5); Glucose 405 mg/dL (70-105); Lipase 7 U/L (8-78); Magnesium 2.0 mg/dL (1.6-2.6); Potassium 4.4 mmol/L (3.5-5.1); Sodium 132 mmol/L (136-145)
[2024-12-08] MEDS ORDERED: Metoclopramide HCl 10 MG (2 mL) VIAL ONE (05:14)
[2024-12-08] MEDS ORDERED: diphenhydrAMINE 50 MG/ML VIAL ONE (05:14)
[2024-12-08] MEDS ORDERED: INSULIN REGULAR IN 0.9 % NACL 100 ML ONE (05:35)
[2024-12-08] MEDS ORDERED: Dextrose 50% Abboject 50 ML SYRINGE SLOW IVP PRN ×2 (05:40→14:15)
[2024-12-08] MEDS ORDERED: NS 0.9% w/ 20 MEQ KCL 1,000 ML IV PRN ×2 (05:40)
[2024-12-08] MEDS ORDERED: INSULIN REGULAR IN 0.9 % NACL 100 ML IVPB SCH (05:45)
[2024-12-08] MEDS ORDERED: D5 1/2 NS w/20 mEq KCL 1,000 ML ONE (07:43)
[2024-12-08] MEDS: D5 1/2 NS w/20 mEq KCL 1,000 ML IV PRN (08:00)
[2024-12-08 08:08] LABS: Lithium Less than 0.101 mmol/L (1.0-1.2)
[2024-12-08 08:09] LABS: Anion Gap 20 mmol/L (10-20); BUN (Urea Nitrogen) 22 mg/dL (8.9-20.6); Calc. Creatinine Clearance 0 mL/min (70-130); Calcium 8.9 mg/dL (7.8-10.44); Carbon Dioxide 18 mmol/L (22-29); Chloride 102 mmol/L (98-107); Glucose 170 mg/dL (70-105); Magnesium 1.9 mg/dL (1.6-2.6); Potassium 4.1 mmol/L (3.5-5.1); Sodium 136 mmol/L (136-145)
[2024-12-08 08:34] LABS: Bacteria/HPF None Seen HPF (None Seen); CAUTI Indications for Culture Dysuria,urgency,freq; Glucose, Urine (Dipstick) Greater than 1000 mg/dL (Negative); Leukocyte Negative Leu/uL (Negative); Protein, Urine (Dipstick) 50 mg/dL (Neg-Trace); RBC/HPF 0-3 HPF (0-3); Specific Gravity, Urine 1.040 (1.002-1.036); WBC/HPF 0-3 HPF (0-3)
[2024-12-08 08:35] LABS: Urine Culture Reflex No No
[2024-12-08 08:47] LABS: Hb (HGBA1c) 6348.475 umol/L
[2024-12-08] MEDS ORDERED: Pantoprazole 40 MG DR.TAB PO SCH (09:00)
[2024-12-08 09:14] VITALS: BMI 20.8
[2024-12-08] MEDS: Pantoprazole 40 MG VIAL IVP SCH (11:26)
[2024-12-08] MEDS: Lithium Carbonate 300 MG ER.TAB PO SCH ×2 (11:27→21:00)
[2024-12-08] MEDS: Magnesium 2 GM/50 ML(in water) 2 GM in Premix 1 BAG IVPB SCH (11:27)
[2024-12-08 12:34] LABS: Anion Gap 14 mmol/L (10-20); BUN (Urea Nitrogen) 14 mg/dL (8.9-20.6); Calc. Creatinine Clearance 131 mL/min (70-130); Calcium 8.5 mg/dL (7.8-10.44); Carbon Dioxide 22 mmol/L (22-29); Chloride 101 mmol/L (98-107); Glucose 131 mg/dL (70-105); Potassium 3.8 mmol/L (3.5-5.1); Sodium 133 mmol/L (136-145)
[2024-12-08] MEDS ORDERED: Glucagon 1 MG/ML KIT IM PRN (14:15)
[2024-12-08] MEDS: Insulin Glargine 30 UNITS/0.3 ML VIAL SC SCH (14:26)
[2024-12-08 17:25] LABS: Anion Gap 19 mmol/L (10-20); BUN (Urea Nitrogen) 14 mg/dL (8.9-20.6); Calc. Creatinine Clearance 125 mL/min (70-130); Calcium 9.1 mg/dL (7.8-10.44); Carbon Dioxide 21 mmol/L (22-29); Chloride 99 mmol/L (98-107); Glucose 141 mg/dL (70-105); Potassium 3.8 mmol/L (3.5-5.1); Sodium 135 mmol/L (136-145)
[2024-12-08] MEDS: Ondansetron PF 4 MG/2 ML Vial IVP PRN (22:12)
[2024-12-09 04:26] LABS: #Basophils 0.04 10x3/uL (0.0-0.2); #Eosinophils 0.11 10x3/uL (0.0-0.7); #Monocytes 0.78 10x3/uL (0.11-0.59); #Neutrophils 4.05 10x3/uL (1.40-6.50); %Basophils 0.4 % (0.0-1.0); %Eosinophils 1.2 % (0.0-10.0); %Lymphocytes 44.9 % (21.0-51.0); %Monocytes 8.6 % (0.0-10.0); %Neutrophils 44.7 % (42.0-75.0); Hematocrit 40.4 % (42.0-52.0); Hemoglobin 13.8 g/dL (14.0-18.0); Mean Corpuscular Hemoglobin 29.0 pg (27.0-31.0); Mean Corpuscular Volume 84.9 fL (78.0-98.0); Platelet Count 339 10x3/uL (130-400); Red Blood Cell (RBC) Count 4.76 mill/uL (4.70-6.10); White Blood Cell (WBC) Count 9.08 10x3/uL (4.8-10.8)
[2024-12-09 04:44] LABS: Anion Gap 13 mmol/L (10-20); BUN (Urea Nitrogen) 8 mg/dL (8.9-20.6); Calc. Creatinine Clearance 157 mL/min (70-130); Calcium 8.7 mg/dL (7.8-10.44); Carbon Dioxide 23 mmol/L (22-29); Chloride 105 mmol/L (98-107); Glucose 87 mg/dL (70-105); Magnesium 2.1 mg/dL (1.6-2.6); Potassium 3.3 mmol/L (3.5-5.1); Sodium 138 mmol/L (136-145)
[2024-12-09] MEDS ORDERED: Pantoprazole 40 MG VIAL IVP SCH (09:00)
[2024-12-09] MEDS ORDERED: Insulin Glargine 30 UNITS/0.3 ML VIAL SC SCH (09:00)
[2024-12-09] MEDS: Insulin Glargine 30 UNITS/0.3 ML VIAL SC SCH ×2 (11:17→14:52)
[2024-12-09 15:09] LABS: Potassium 4.0 mmol/L (3.5-5.1)
[2024-12-09] MEDS: Famotidine 20 MG TAB PO SCH (20:18)
[2024-12-09] MEDS: Cholecalciferol 1,000 UNITS (25 MCG) TAB PO SCH (20:18)
[2024-12-09] MEDS: QUEtiapine 300 MG TAB PO SCH (20:18)
[2024-12-09] MEDS: Acetaminophen 325 MG TAB PO PRN (20:31)
[2024-12-10 05:57] LABS: Anion Gap 11 mmol/L (10-20); BUN (Urea Nitrogen) 8 mg/dL (8.9-20.6); Calc. Creatinine Clearance 157 mL/min (70-130); Calcium 9.5 mg/dL (7.8-10.44); Carbon Dioxide 24 mmol/L (22-29); Chloride 104 mmol/L (98-107); Glucose 242 mg/dL (70-105); Potassium 3.3 mmol/L (3.5-5.1); Sodium 136 mmol/L (136-145)
[2024-12-10 08:26] VITALS: BP 106/71; TEMP 97.9
[2024-12-10] MEDS: Multivit, Therapeutic 1 TAB PO SCH (08:54)
[2024-12-10] MEDS: Insulin Glargine 30 UNITS/0.3 ML VIAL SC SCH (08:58)
[2024-12-10] MEDS ORDERED: Insulin Glargine 30 UNITS/0.3 ML VIAL SC SCH ×2 (09:00)
== END 2024-12-10 10:08 | disposition home or self-care (01) | DRG 638 ==
LOC: ERS 03:48 → ERHOLD 05:46 → IMCU/EMU 09:05 → T4-B 12-09 00:12
PROVIDERS: ADMIT Internal Medicine; ATTEND Student in an Organized Health Care Education/Training Program
DX: E10.10 Type 1 diabetes mellitus with ketoacidosis without coma (principal); E87.1 Hypo-osmolality and hyponatremia; E10.65 Type 1 diabetes mellitus with hyperglycemia; K21.9 Gastro-esophageal reflux disease without esophagitis; F17.210 Nicotine dependence, cigarettes, uncomplicated; F31.9 Bipolar disorder, unspecified; Z79.899 Other long term (current) drug therapy
CPT/HCPCS: 36415; 36416; 80048; 80053; 80178; 81001; 82010; 82805; 83036; 83605; 83690; 83735; 84100; 84484; 85025; 93005; 94760; 96361; 96365; 96366; 96375; J1200; J1815; J2765; J3475; J3480

== ENCOUNTER 2024-12-17 14:43 | Emergency (ER) | payer SELFPAY ==
[2024-12-17 15:37] LABS: Actual Bicarbonate (HCO3v) 21.9 mEq/L (22-28); Base Excess -2.6 mEq/L (-2.0 to +3.0); Calcium, Ionized (venous) 1.20 mmol/L (1.16-1.32); Chloride (VBG) 102 mmol/L (98-106); Hematocrit-VBG 42 % (42.0-52.0); Hemoglobin (Hb) 14.4 g/dL (13.2-17.3); Potassium (VBG) 3.18 mmol/L (3.70-5.30); Sodium 144 mmol/L (133-146)
[2024-12-17 15:46] LABS: Acetaminophen Less than 10 mcg/mL (Less than 10); Salicylate Less than 8.0 mg/dL (Less than 8.0)
[2024-12-17 15:48] LABS: #Basophils 0.03 10x3/uL (0.0-0.2); #Eosinophils 0.05 10x3/uL (0.0-0.7); #Monocytes 0.64 10x3/uL (0.11-0.59); #Neutrophils 5.58 10x3/uL (1.40-6.50); %Basophils 0.3 % (0.0-1.0); %Eosinophils 0.6 % (0.0-10.0); %Lymphocytes 26.7 % (21.0-51.0); %Monocytes 7.4 % (0.0-10.0); %Neutrophils 64.7 % (42.0-75.0); Hematocrit 37.4 % (42.0-52.0); Hemoglobin 13.5 g/dL (14.0-18.0); Mean Corpuscular Hemoglobin 29.7 pg (27.0-31.0); Mean Corpuscular Volume 82.4 fL (78.0-98.0); Platelet Count 360 10x3/uL (130-400); Red Blood Cell (RBC) Count 4.54 mill/uL (4.70-6.10); White Blood Cell (WBC) Count 8.63 10x3/uL (4.8-10.8)
[2024-12-17 15:56] LABS: ALT (SGPT) 12 U/L (Less than 45); AST (SGOT) 18 U/L (11-34); Albumin 4.2 g/dL (3.1-4.5); Alkaline Phosphatase 95 U/L (40-110); Anion Gap 19 mmol/L (10-20); BUN (Urea Nitrogen) 9 mg/dL (8.9-20.6); Bilirubin, Total 0.3 mg/dL (0.3-1.2); Calc. Creatinine Clearance 0 mL/min (70-130); Calcium 9.7 mg/dL (7.8-10.44); Carbon Dioxide 22 mmol/L (22-29); Chloride 104 mmol/L (98-107); Globulin 2.9 g/dL (2.4-3.5); Glucose 433 mg/dL (70-105); Lipase 14 U/L (8-78); Magnesium 2.0 mg/dL (1.6-2.6); Potassium 3.1 mmol/L (3.5-5.1); Sodium 142 mmol/L (136-145)
== END 2024-12-17 21:00 ==
LOC: ERS 14:43 → EEVIPCON 14:43 → ERS 21:00
DX: R45.851 Suicidal ideations (principal); F20.9 Schizophrenia, unspecified; E10.65 Type 1 diabetes mellitus with hyperglycemia; F17.210 Nicotine dependence, cigarettes, uncomplicated
CPT/HCPCS: 36416; 70450; 71045; 80307; 82010; 82805; 83605; 83690; 83735; 84100; 84443; 84484; 85025; 87040; 87428; 93005; 94760; 96361; 96374; J3486